=== PATIENT | male | born 1935 | race Caucasian/White ===

== ENCOUNTER 2016-10-05 14:27 | Inpatient (IN) ==
--- NOTE | 2016-10-05 14:42 | Emergency Department Note ---
Disposition Clinical Impression: Generalized weakness UTI (urinary tract infection) Qualifiers: Urinary tract infection type: site unspecified Hematuria presence: without hematuria Qualified Code(s): N39.0 - Urinary tract infection, site not specified Disposition: Admitted As Inpatient Condition: Fair Time of Disposition: 15:24 Male Urogenital HPI - General Chief complaint: ED Urogenital-Male Stated complaint: uti Time Seen by Provider: 10/05/16 14:29 Source: patient, EMS Mode of arrival: EMS Limitations: no limitations Nursing Notes Reviewed: Yes Vital Signs Reviewed: Yes - History of Present Illness HPI Narrative: Patient notes generalized weakness. He is currently taking Macrobid for a urinary tract infection. This was diagnosed on 09/23/2016. An indwelling Blevins catheter was placed 3 days ago. He denies focal symptoms.-Just states he feels generally weak. No fevers. No nausea no vomiting Onset (ago): day(s) Improves with: none Worsens with: none Reports: denies other symptoms - Related Data Home Medications Medication Instructions Recorded Confirmed Diltiazem HCl [Diltiazem 24Hr Cd] 240 mg PO DAILY 07/01/15 10/05/16 Oxybutynin [Ditropan] 5 mg PO 3-4XD 07/01/15 10/05/16 Albuterol Sulfate [Proair Hfa] 2 puff IH Q4H PRN 11/20/15 10/05/16 Atorvastatin Calcium [Lipitor] 20 mg PO HS 11/20/15 10/05/16 Tamsulosin [Flomax] 0.4 mg PO DAILY 11/20/15 10/05/16 Dabigatran [Pradaxa] 150 mg PO BID 02/20/16 10/05/16 Lisinopril [Zestril] 10 mg PO DAILY 10/05/16 10/05/16 Previous Rx's Medication Instructions Recorded Docusate [Colace] 100 mg PO BID capsule 12/10/15 MOM Conc [MILK OF MAGNESIA conc] 10 ml PO DAILY PRN #0 ud.liq 12/10/15 Ascorbic Acid [Vitamin C] 500 mg PO DAILY 365 Days 02/22/16 Cyanocobalamin (B-12) [Vitamin B12] 1,000 mcg PO DAILY 365 Days 02/22/16 Ferrous Sulfate 325 mg PO DAILY 365 Days 02/22/16 Folic Acid 1 mg PO DAILY 365 Days 02/22/16 Allergies Allergy/AdvReac Type Severity Reaction Status Date / Time Penicillins Allergy Hives Verified 12/24/15 16:23 Sulfa (Sulfonamide Allergy Hives Verified 12/24/15 16:23 Antibiotics) All systems ED: reviewed and negative except as stated. Constitutional: Reports: weakness Eyes: Reports: as per HPI ENT ED: Reports: as per HPI Cardiovascular: Reports: as per HPI Respiratory: Reports: as per HPI Gastrointestinal: Reports: as per HPI Genitourinary: Reports: as per HPI Musculoskeletal: Reports: as per HPI Integumentary: Reports: as per HPI Neurological: Reports: as per HPI Psychiatric: Reports: as per HPI Endocrine: Reports: as per HPI Hematological/Lymphatic: Reports: as per HPI Allergic/Immunologic: Reports: as per HPI Past Medical History - Past Medical History Source: patient Medical history: Reports: arthritis, atrial fibrillation, CHF, COPD, coronary artery disease, CVA, GERD, hyperlipidemia, hypertension, kidney stones, osteoporosis, renal disease, TIA, other Surgical history: Reports: orthopedic, other (b/l knee surgery), other ( prostate surgery) Psychiatric history: Reports: no psych history - Social History Smoking Status: Light tobacco smoker Smokeless Tobacco Status: No Alcohol use: Reports: rarely Drug use: Reports: none Physical Exam - General Limitations: no limitations General appearance: alert, in no apparent distress - Head Head exam: atraumatic - Eye Eye exam: Present: normal appearance - ENT ENT exam: normal exam - Neck Neck exam: Present: normal inspection - Chest Chest inspection: Present: normal inspection - Respiratory Respiratory exam: Present: normal lung sounds bilaterally - Cardiovascular Cardiovascular exam: Present: regular rate, normal rhythm, normal heart sounds - Abdominal Exam Abdominal Exam: Present: soft, Non-Tender - Male exam: Present: other (Blevins catheter in place draining cloudy urine with increased sediment) - Neurological Exam Neurological exam: Present: alert, oriented X3, CN II-XII intact - Psychiatric Psychiatric exam: Present: normal affect, normal mood - Skin Skin exam: Present: warm, dry, intact Course Course Narrative: The patient presents with generalized weakness. He is currently being treated with Macrobid for a UTI. I have reviewed the culture and sensitivity from his urinalysis dated 09/23/2016-his urine grew out Escherichia coli at that time which is sensitive to nitrofurantoin I spoke with the urology clinic and faxed me urinalysis results which were the same as above. I spoke with Dr. Camacho's office in order to determine which [facility] the patient was recently referred to - they thought it might be the [facility]. I am checking basic labs and an EKG. He will be reassessed 14:56: [facility] does not have any record of the patient recently being evaluated - Reevaluation(s) Reevaluation #1: Patient states he was too weak to go home. He requests admission. IV Zosyn ordered. The patient states he has a penicillin allergy but this was as a teenager and he broke out in a rash. He denies anaphylaxis. He states he has received penicillin derivatives to the best of his knowledge as mental without complication Reevaluation #2: Dr. Malin accepts admission. Recs replacing blevins and sending new UA specimen Reevaluation #3: Patient tolerated Zosyn infusion without complication Vital Signs Temperature 98.1 F 10/05/16 14:28 Pulse Rate 74 10/05/16 14:28 Respiratory Rate 16 10/05/16 14:28 Blood Pressure 137/101 10/05/16 14:28 O2 Sat by Pulse Oximetry 97 10/05/16 14:28 Temperature 98.1 F 10/05/16 14:28 Pulse Rate 74 10/05/16 14:28 Respiratory Rate 16 10/05/16 14:28 Blood Pressure 137/101 10/05/16 14:28 O2 Sat by Pulse Oximetry 97 10/05/16 14:28 Oxygen Delivery Oxygen Delivery Room Air Urogenital-Male - Medical Records Medical records reviewed: Yes I reviewed the patient's medical records. - Lab Data Lab results reviewed: Yes I reviewed the patient's lab results. Result diagrams: 10/05/16 14:50 10/05/16 14:50 Lab Results 10/05/16 10/05/16 10/05/16 Range/Units 14:50 14:50 14:50 WBC 7.0 (4.3-11.1) K/mcL RBC 4.47 (4.19-5.50) M/mcL Hgb 13.7 (12.9-16.9) g/dL Hct 41.0 (37.5-50.1) % MCV 91.7 (83.0-100.0) fL MCH 30.6 (28.0-33.3) pg MCHC 33.4 (31.6-35.5) g/dL RDW 13.3 (11.5-14.5) % Plt Count 175 (140-400) K/mcL MPV 10.3 (9.4-12.4) fL Immature Gran % 0.4 (0-4) % Seg Neutrophils % 73.3 % Lymphocytes % 19.0 % Monocytes % 6.6 % Eosinophils % 0.0 % Basophils % 0.7 % Neutrophils # 5.1 (1.6-8.9) K/mcL Lymphocytes # 1.3 (0.6-4.6) K/mcL Monocytes # 0.5 (0.0-1.3) K/mcL Eosinophils # 0.0 (0.0-0.6) K/mcL Basophils # 0.1 (0.0-0.2) K/mcL Sodium 138 (136-145) mEq/L Potassium 4.3 (3.5-4.5) mEq/L Chloride 101 (98-109) mEq/L Carbon Dioxide 28 (19-29) mEq/L BUN 16 (8-26) mg/dL Creatinine 0.85 (0.72-1.25) mg/dL Est GFR ( Amer) > 60 (> 60) Est GFR (Non-Af Amer) > 60 (> 60) BUN/Creatinine Ratio 19 (6-26) Glucose 95 (70-99) mg/dL Calculated Osmolality 287 (280-300) Calcium 9.1 (8.6-10.8) mg/dL Total Bilirubin 1.3 H (0.2-1.2) mg/dL AST 12 (5-34) Units/L ALT 8 (0-55) Units/L Alkaline Phosphatase 99 (38-126) Units/L Troponin I 0.00 (0-0.03) ng/mL Serum Total Protein 6.7 (6.0-8.3) g/dL Albumin 3.4 L (3.5-5.0) g/dL Globulin 3.3 (2.4-3.5) g/dL Albumin/Globulin Ratio 1.0 L (1.1-2.2) - EKG Data EKG attestation: Yes I reviewed and interpreted this EKG. EKG results narrative: afib 80 BPM QRS 96 ms, QT/QTc 383/419
[2016-10-05 15:08] LABS: Basophils # 0.1 K/mcL (0.0-0.2); Basophils % 0.7 %; Hemoglobin 13.7 g/dL (12.9-16.9); Immature Granulocytes % 0.4 % (0-4); Lymphocytes # 1.3 K/mcL (0.6-4.6); Mean Corpuscular HGB Conc 33.4 g/dL (31.6-35.5); Mean Corpuscular Hemoglobin 30.6 pg (28.0-33.3); Mean Corpuscular Volume 91.7 fL (83.0-100.0); Mean Platelet Volume 10.3 fL (9.4-12.4); Monocytes # 0.5 K/mcL (0.0-1.3); Monocytes % 6.6 %; Neutrophils # 5.1 K/mcL (1.6-8.9); Platelet Count 175 K/mcL (140-400); Red Blood Count 4.47 M/mcL (4.19-5.50); Red Cell Distribution Width 13.3 % (11.5-14.5); Segmented Neutrophils % 73.3 %
[2016-10-05] MEDS ORDERED: Piperacillin/Tazobactam 3.375 GM in D5% in Water (Mini-Bag+) 100 ML IVPB ONE (15:18)
[2016-10-05 15:20] LABS: Alanine Aminotransferase 8 Units/L (0-55); Albumin 3.4 g/dL (3.5-5.0); Alkaline Phosphatase 99 Units/L (38-126); Aspartate Amino Transferase 12 Units/L (5-34); BUN/Creatinine Ratio 19 (6-26); Bilirubin,Total 1.3 mg/dL (0.2-1.2); Blood Urea Nitrogen 16 mg/dL (8-26); Calcium 9.1 mg/dL (8.6-10.8); Carbon Dioxide 28 mEq/L (19-29); Chloride 101 mEq/L (98-109); Globulin 3.3 g/dL (2.4-3.5); Glucose 95 mg/dL (70-99); Osmolality,Calculated 287 (280-300); Potassium 4.3 mEq/L (3.5-4.5); Sodium 138 mEq/L (136-145); Total Protein 6.7 g/dL (6.0-8.3); eGFR For African Americans > 60 (> 60); eGFR For Non-African Americans > 60 (> 60)
[2016-10-05 16:56] LABS: Bilirubin,Urine Negative (Negative); Blood,Urine Moderate (Negative); Clarity,Urine Cloudy (Clear); Glucose,Urine (UA) Normal (Normal); Ketones,Urine Trace mg/dL (Negative); Leukocyte Esterase,Urine Large (Negative); Nitrite,Urine Negative (Negative); PH,Urine 6.5 pH Units (5.0-8.0); Protein,Urine 100 mg/dL (Neg-Trace); Specific Gravity,Urine 1.024 (1.010-1.025); Urobilinogen,Urine Normal (Normal)
[2016-10-05 17:01] LABS: Color,Urine Yellow (Yellow)
--- NOTE | 2016-10-05 18:42 | Internal Med History&Physical ---
Date of Encounter: 10/05/16 Time of Encounter: 18:41 Assessment and Plan (1) Acute cystitis with hematuria Current visit: Yes Status: Acute We will treat him with broad-spectrum IV antibiotics. We will obtain a urine culture. At this point there is microhematuria and no gross hematuria noted. We will monitor her hemoglobin and hematocrit concerning the patient is anticoagulated. (2) UTI due to extended-spectrum beta lactamase (ESBL) producing Escherichia coli Current visit: Yes Status: Acute Urine culture from 09/23/2016, 12 days ago showed ESBL Escherichia coli sensitive to carbapenems. I will treat the patient with meropenem and follow- up repeat urine culture and sensitivities. The patient will likely need to complete a 10 day to 14 day course of IV antibiotic. A good choice would be ertapenem since as once daily administration. (3) History of CVA with residual deficit Current visit: Yes Status: Acute Will obtain PT and OT evaluation. Assist with ADLs. Fall precautions. (4) DVT prophylaxis Current visit: Yes Status: Acute (5) Urinary retention due to benign prostatic hyperplasia Current visit: No Status: Chronic Currently the patient has a Ray catheter. We will continue this. I will increase the Flomax to twice daily. The blood pressure will likely tolerate it and as it is elevated. (6) CAD (coronary artery disease) Current visit: No Status: Chronic Not currently reporting any chest pain. Continue with Lipitor. He is not on aspirin due to for anticoagulation. Qualifiers: Coronary Disease-Associated Artery/Lesion type: elem artery [place] vs. transplanted heart: elem heart Associated angina: without angina Qualified Code(s): I25.10 - Atherosclerotic heart disease of elem coronary artery without angina pectoris (7) Atrial fibrillation Current visit: No Status: Chronic Continue anticoagulation with Pradaxa. We will monitor hemoglobin and hematocrit, monitor for bleeding given the patient's UTI. Qualifiers: Atrial fibrillation type: chronic Qualified Code(s): I48.2 - Chronic atrial fibrillation Internal Medicine - H&P: HPI Chief complaint: urinary tract infection Admitted From: Emergency Dept Plans for Post Hospital Care: Home History of present illness: Mr. 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 He had a urinalysis done 10 days ago when he was being treated by Macrobid for UTI. He reported generalized weakness, no fevers chills nausea or vomiting. However, urine culture was reported as resistant to Macrobid and therefore the patient was referred for evaluation in the hospital. He states that this morning he has started to develop mild to moderate sharp lower abdominal pain. Denies any aggravating or alleviating factors. He had a Ray catheter placed in the emergency department and he was referred for admission. A temperature view of systems was performed. Positives per history of present illness and additionally positive for left lower extremity weakness and spasticity secondary to stroke, otherwise negative. Family history was reviewed and found to be noncontributory due to the patient' s advanced age. Past Med Surg Social Fam HX - Past Medical History Medical history: arthritis, atrial fibrillation, CHF, COPD, coronary artery disease, CVA, GERD, hyperlipidemia, hypertension, kidney stones, osteoporosis, renal disease, TIA, other Psychiatric history: no psych history - Past Surgical History Surgical History: orthopedic, other, other - Social History Smoking Status: Light tobacco smoker Smokeless Tobacco Status: No Alcohol use: rarely Drug use: none - Family History Mother Living Status: Hx Family Cardiac Disorders: Yes Father Living Status: Hx Family Endocrine Disorder: Yes Internal Medicine - H&P: Meds Diltiazem HCl [Diltiazem 24Hr Cd] 240 mg PO DAILY 07/01/15 [History] Oxybutynin [Ditropan] 5 mg PO 3-4XD 07/01/15 [History] Albuterol Sulfate [Proair Hfa] 2 puff IH Q4H PRN 11/20/15 [History] Atorvastatin Calcium [Lipitor] 20 mg PO HS 11/20/15 [History] Tamsulosin [Flomax] 0.4 mg PO DAILY 11/20/15 [History] Docusate [Colace] 100 mg PO BID capsule 12/10/15 [Rx] MOM Conc [MILK OF MAGNESIA conc] 10 ml PO DAILY PRN #0 ud.liq 12/10/15 [Rx] Dabigatran [Pradaxa] 150 mg PO BID 02/20/16 [History] Ascorbic Acid [Vitamin C] 500 mg PO DAILY 365 Days 02/22/16 [Rx] Cyanocobalamin (B-12) [Vitamin B12] 1,000 mcg PO DAILY 365 Days 02/22/16 [Rx] Ferrous Sulfate 325 mg PO DAILY 365 Days 02/22/16 [Rx] Folic Acid 1 mg PO DAILY 365 Days 02/22/16 [Rx] Lisinopril [Zestril] 10 mg PO DAILY 10/05/16 [History] Allergies Penicillins Allergy (Verified 12/24/15 16:23) Hives Sulfa (Sulfonamide Antibiotics) Allergy (Verified 12/24/15 16:23) Hives All Systems PM: A 10-system review of systems was performed and is negative for pertinent findings except as documented above in the HPI. - Constitutional Vitals: Temp Pulse Resp BP Pulse Ox 97.4 F L 81 17 166/97 95 10/05/16 16:46 10/05/16 16:46 10/05/16 16:46 10/05/16 16:46 10/05/16 16:46 - Respiratory Respiratory exam: Present: CTAB. Absent: accessory muscle use, rales, rhonchi, wheezes - Cardiovascular Cardiovascular exam: Present: RRR, +S1, +S2. Absent: diastolic murmur, gallop, rubs, systolic murmur - GI/Abdominal GI/Abdominal exam: Present: normal bowel sounds, soft, no peritoneal signs. Absent: distended, tenderness - Additional comments: Normal male genitalia, uncircumcised, no lesions or discharge. Ray catheter arising from the penis draining clear yellow urine. - Skin Skin exam: Present: dry, intact Internal Med - H&P Results - Labs CBC & Chem 7: 10/05/16 14:50 10/05/16 14:50 Labs: Urine 10/05/16 Range/Units 16:32 Urine Color Yellow (Yellow) Urine Clarity Cloudy A (Clear) Urine pH 6.5 (5.0-8.0) pH Units Ur Specific [place] 1.024 (1.010-1.025) Urine Protein 100 H (Neg-Trace) mg/dL Urine Glucose (UA) Normal (Normal) mg/dL
[2016-10-05] MEDS ORDERED: MOM Conc 10 ML UD.LIQ PO PRN (20:10)
[2016-10-05] MEDS ORDERED: *HR* HYDROcodone/Acet 5/325 mg TABLET PO PRN (20:11)
[2016-10-05] MEDS ORDERED: Naloxone 0.4 MG/ML INJ IVP PRN (20:11)
[2016-10-05] MEDS: Ertapenem 1,000 MG in 0.9 % Sodium Chloride Mini Bag 100 ML IVPB SCH (21:19)
[2016-10-05] MEDS: *HR* Dabigatran 150 MG CAPSULE PO SCH (21:20)
[2016-10-06 05:28] LABS: Basophils % 0.5 %; Eosinophils % 0.2 %; Hematocrit 38.3 % (37.5-50.1); Hemoglobin 12.8 g/dL (12.9-16.9); Immature Granulocytes % 0.3 % (0-4); Lymphocytes # 1.5 K/mcL (0.6-4.6); Lymphocytes % 22.6 %; Mean Corpuscular HGB Conc 33.4 g/dL (31.6-35.5); Mean Corpuscular Hemoglobin 30.3 pg (28.0-33.3); Mean Corpuscular Volume 90.5 fL (83.0-100.0); Mean Platelet Volume 10.2 fL (9.4-12.4); Monocytes # 0.6 K/mcL (0.0-1.3); Monocytes % 8.8 %; Neutrophils # 4.5 K/mcL (1.6-8.9); Platelet Count 161 K/mcL (140-400); Red Blood Count 4.23 M/mcL (4.19-5.50); Red Cell Distribution Width 13.2 % (11.5-14.5); Segmented Neutrophils % 67.6 %
[2016-10-06 05:41] LABS: BUN/Creatinine Ratio 21 (6-26); Blood Urea Nitrogen 18 mg/dL (8-26); Calcium 8.6 mg/dL (8.6-10.8); Carbon Dioxide 26 mEq/L (19-29); Chloride 103 mEq/L (98-109); Glucose 83 mg/dL (70-99); Osmolality,Calculated 289 (280-300); Potassium 3.7 mEq/L (3.5-4.5); Sodium 139 mEq/L (136-145); eGFR For African Americans > 60 (> 60); eGFR For Non-African Americans > 60 (> 60)
[2016-10-06] MEDS: Ertapenem 1,000 MG in 0.9 % Sodium Chloride Mini Bag 100 ML IVPB SCH (09:42)
[2016-10-06] MEDS: *HR* Dabigatran 150 MG CAPSULE PO SCH ×2 (09:42→21:32)
[2016-10-06] MEDS: Diltiazem CD (24hr) 240 MG CAPSULE PO SCH (09:43)
--- NOTE | 2016-10-06 10:55 | Internal Med Progress Note ---
Date of Encounter: 10/05/16 Time of Encounter: 10:00 - Assessment and plan (1) UTI due to extended-spectrum beta lactamase (ESBL) producing Escherichia coli Current Visit: Yes Status: Acute Assessment and plan: Urine cultures from past consistent with ESBL UTI Will continue Ertapenem at this time and further adjust therapy as per culture results blevins cath changed on 10/05/16-will maintain adequate blevins care follow up repeat urine cultures (2) Urinary retention due to benign prostatic hyperplasia Current Visit: No Status: Chronic Assessment and plan: Continue Blevins support Continue Flomax BID (3) Hypertension Current Visit: No Status: Chronic Assessment and plan: BP within acceptable range continue home medications Qualifiers: Hypertension type: essential hypertension Qualified Code(s): I10 - Essential (primary) hypertension (4) COPD (chronic obstructive pulmonary disease) Current Visit: No Status: Chronic Assessment and plan: Not in acute exacerbation continue home medications bronchodilator support as needed Qualifiers: COPD type: unspecified COPD Qualified Code(s): J44.9 - Chronic obstructive pulmonary disease, unspecified (5) Atrial fibrillation Current Visit: No Status: Chronic Assessment and plan: Rate controlled with Cardizem, will continue Anticoagulated with Pradaxa Qualifiers: Atrial fibrillation type: chronic Qualified Code(s): I48.2 - Chronic atrial fibrillation (6) History of CVA with residual deficit Current Visit: Yes Status: Acute Assessment and plan: Follow up PT/OT eval (7) Obesity (BMI 30.0-34.9) Current Visit: No Status: Chronic (8) DVT prophylaxis Current Visit: Yes Status: Acute Assessment and plan: Anticoagulated with Pradaxa - Subjective Interval history: Patient seen and examined, resting in chair and reports of feeling better compared to the previous day. States his blevins catheter was changed yesterday after his arrival to the hospital. - Constitutional Vitals: Temp Pulse Resp BP Pulse Ox 97.6 F 77 16 104/71 96 10/06/16 10:36 10/06/16 10:36 10/06/16 10:36 10/06/16 10:36 10/06/16 10:36 General appearance: Present: A&O X 3, no acute distress, obese - Head Head exam: Present: atraumatic, normocephalic - Eye Eye exam: Present: normal appearance, conjuntiva pink, sclera anicteric - Respiratory Respiratory exam: Present: CTAB. Absent: accessory muscle use, rales, rhonchi, wheezes - Cardiovascular Cardiovascular exam: Present: RRR, +S1, +S2. Absent: diastolic murmur, gallop, rubs, systolic murmur - GI/Abdominal GI/Abdominal exam: Present: distended (obese), normal bowel sounds, soft, no peritoneal signs. Absent: tenderness - Extremities Exam Extremities exam: Present: warm, radial pulses palpable and symetrical. Absent : calf tenderness, pedal edema - Neurological Exam Neurological exam: Present: alert, oriented X3 - Psychiatric Psychiatric exam: Present: normal affect, normal mood Internal Medicine: Result - Labs CBC & Chem 7: 10/06/16 04:55 10/06/16 04:55 Labs: Short CBC 10/06/16 Range/Units 04:55 WBC 6.6 (4.3-11.1) K/mcL Hgb 12.8 L (12.9-16.9) g/dL Hct 38.3 (37.5-50.1) % Plt Count 161 (140-400) K/mcL Neutrophils # 4.5 (1.6-8.9) K/mcL BMP 10/06/16 04:55 Sodium 139 Potassium 3.7 Chloride 103 Carbon Dioxide 26 BUN 18 Creatinine 0.84 Glucose 83 Calcium 8.6 Urine 10/05/16 Range/Units 16:32 Urine Color Yellow (Yellow) Urine Clarity Cloudy A (Clear) Urine pH 6.5 (5.0-8.0) pH Units Ur Specific [place] 1.024 (1.010-1.025) Urine Protein 100 H (Neg-Trace) mg/dL Urine Glucose (UA) Normal (Normal) mg/dL Consult Discharge Plan - Plan Referrals: Luz Camacho MD [Primary Care Provider] -
--- NOTE | 2016-10-06 16:48 | Electrocardiograph Report ---
[place] [id number] Test Date: 2016-10-05 Pat Name: Aaron Hawkins Department: 104 Room: 3B Gender: M Backfiller: PAOLA : 1935 Requested By: Soy Silver Order Number: [id number] Reading MD: Kalen Rahman MD Measurements Intervals [place] Rate: 80 P: DE: 0 QRS: -6 QRSD: 96 T: 62 QT: 383 QTc: 419 Interpretive Statements ATRIAL FIBRILLATION WITH ABERRANT CONDUCTION OR VENTRICULAR PREMATURE COMPLEXES Electronically Signed On 10-06-2016 16:46:39 EDT by Kalen Rahman MD
[2016-10-07 06:04] LABS: Basophils % 0.3 %; Hematocrit 35.5 % (37.5-50.1); Immature Granulocytes % 0.3 % (0-4); Lymphocytes # 2.1 K/mcL (0.6-4.6); Mean Corpuscular HGB Conc 33.8 g/dL (31.6-35.5); Mean Corpuscular Hemoglobin 30.8 pg (28.0-33.3); Mean Corpuscular Volume 91.3 fL (83.0-100.0); Mean Platelet Volume 10.7 fL (9.4-12.4); Monocytes # 0.5 K/mcL (0.0-1.3); Monocytes % 6.8 %; Neutrophils # 4.5 K/mcL (1.6-8.9); Platelet Count 146 K/mcL (140-400); Red Blood Count 3.89 M/mcL (4.19-5.50); Red Cell Distribution Width 13.4 % (11.5-14.5); Segmented Neutrophils % 63.6 %
[2016-10-07 06:15] LABS: BUN/Creatinine Ratio 23 (6-26); Blood Urea Nitrogen 22 mg/dL (8-26); Calcium 8.1 mg/dL (8.6-10.8); Carbon Dioxide 26 mEq/L (19-29); Chloride 105 mEq/L (98-109); Glucose 102 mg/dL (70-99); Osmolality,Calculated 288 (280-300); Phosphorous 3.9 mg/dL (2.3-4.7); Potassium 3.5 mEq/L (3.5-4.5); Sodium 137 mEq/L (136-145); eGFR For African Americans > 60 (> 60); eGFR For Non-African Americans > 60 (> 60)
[2016-10-07] MEDS: Ertapenem 1,000 MG in 0.9 % Sodium Chloride Mini Bag 100 ML IVPB SCH (09:13)
[2016-10-07] MEDS: *HR* Dabigatran 150 MG CAPSULE PO SCH ×2 (09:13→21:51)
[2016-10-07] MEDS: Diltiazem CD (24hr) 240 MG CAPSULE PO SCH (09:13)
--- NOTE | 2016-10-07 12:00 | Internal Med Progress Note ---
Date of Encounter: 10/05/16 Time of Encounter: 11:05 - Assessment and plan (1) UTI due to extended-spectrum beta lactamase (ESBL) producing Escherichia coli Current Visit: Yes Status: Acute Assessment and plan: Urine cultures from past consistent with ESBL UTI Will continue Ertapenem at this time and further adjust therapy as per culture results blevins cath changed on 10/05/16-will maintain adequate blevins care follow up repeat urine cultures f/u PT evaluation (2) Urinary retention due to benign prostatic hyperplasia Current Visit: No Status: Chronic Assessment and plan: Continue Blevins support Continue Flomax BID (3) Hypertension Current Visit: No Status: Chronic Assessment and plan: Noted to be hypotensive Will hold Lisinopril at this time continue to monitor BP closely Qualifiers: Hypertension type: essential hypertension Qualified Code(s): I10 - Essential (primary) hypertension (4) COPD (chronic obstructive pulmonary disease) Current Visit: No Status: Chronic Assessment and plan: Not in acute exacerbation continue home medications bronchodilator support as needed Qualifiers: COPD type: unspecified COPD Qualified Code(s): J44.9 - Chronic obstructive pulmonary disease, unspecified (5) Atrial fibrillation Current Visit: No Status: Chronic Assessment and plan: Rate controlled with Cardizem, will continue Anticoagulated with Pradaxa Qualifiers: Atrial fibrillation type: chronic Qualified Code(s): I48.2 - Chronic atrial fibrillation (6) History of CVA with residual deficit Current Visit: Yes Status: Acute Assessment and plan: Follow up PT/OT eval (7) Obesity (BMI 30.0-34.9) Current Visit: No Status: Chronic (8) DVT prophylaxis Current Visit: Yes Status: Acute Assessment and plan: Anticoagulated with Pradaxa - Subjective Interval history: Patient seen and examined. Resting in bed and reports of feeling weak but better compared to previous day. Noted to be hypotensive but asymptomatic. Denies any headache, lightheadedness, dizziness, sob at this time. No overnight events reported. - Constitutional Vitals: Temp Pulse Resp BP Pulse Ox 97.5 F L 67 16 94/58 94 L 10/07/16 07:39 10/07/16 07:39 10/07/16 07:39 10/07/16 07:39 10/07/16 07:39 General appearance: Present: A&O X 3, no acute distress, obese - Head Head exam: Present: atraumatic, normocephalic - Eye Eye exam: Present: normal appearance, conjuntiva pink, sclera anicteric - Respiratory Respiratory exam: Present: CTAB. Absent: accessory muscle use, rales, rhonchi, wheezes - Cardiovascular Cardiovascular exam: Present: RRR, +S1, +S2. Absent: diastolic murmur, gallop, rubs, systolic murmur - GI/Abdominal GI/Abdominal exam: Present: normal bowel sounds, soft, no peritoneal signs. Absent: distended, tenderness - Extremities Exam Extremities exam: Present: warm, radial pulses palpable and symetrical. Absent : calf tenderness, cyanotic, pedal edema - Neurological Exam Neurological exam: Present: alert, oriented X3 - Psychiatric Psychiatric exam: Present: normal affect, normal mood Internal Medicine: Result - Labs CBC & Chem 7: 10/07/16 05:00 10/07/16 05:00 Labs: Short CBC 10/07/16 Range/Units 05:00 WBC 7.1 (4.3-11.1) K/mcL Hgb 12.0 L (12.9-16.9) g/dL Hct 35.5 L (37.5-50.1) % Plt Count 146 (140-400) K/mcL Neutrophils # 4.5 (1.6-8.9) K/mcL BMP 10/07/16 05:00 Sodium 137 Potassium 3.5 Chloride 105 Carbon Dioxide 26 BUN 22 Creatinine 0.94 Glucose 102 H Calcium 8.1 L - VTE Documentation of Mechanical Device: Graduated compression elastic hosiery Consult Discharge Plan - Plan Referrals: Luz Camacho MD [Primary Care Provider] -
[2016-10-07 15:51] LABS: Hemoglobin A1C 4.9 %
[2016-10-08 04:21] LABS: Basophils % 0.5 %; Hematocrit 34.6 % (37.5-50.1); Hemoglobin 11.5 g/dL (12.9-16.9); Immature Granulocytes % 0.3 % (0-4); Lymphocytes # 2.3 K/mcL (0.6-4.6); Lymphocytes % 29.2 %; Mean Corpuscular HGB Conc 33.2 g/dL (31.6-35.5); Mean Corpuscular Hemoglobin 30.4 pg (28.0-33.3); Mean Corpuscular Volume 91.5 fL (83.0-100.0); Mean Platelet Volume 10.5 fL (9.4-12.4); Monocytes # 0.5 K/mcL (0.0-1.3); Monocytes % 6.8 %; Platelet Count 150 K/mcL (140-400); Red Blood Count 3.78 M/mcL (4.19-5.50); Red Cell Distribution Width 13.5 % (11.5-14.5); Segmented Neutrophils % 63.2 %
[2016-10-08 04:42] LABS: BUN/Creatinine Ratio 25 (6-26); Blood Urea Nitrogen 22 mg/dL (8-26); Calcium 8.2 mg/dL (8.6-10.8); Carbon Dioxide 24 mEq/L (19-29); Chloride 106 mEq/L (98-109); Glucose 99 mg/dL (70-99); Magnesium 1.9 mg/dL (1.6-2.6); Osmolality,Calculated 289 (280-300); Phosphorous 3.6 mg/dL (2.3-4.7); Potassium 4.2 mEq/L (3.5-4.5); Sodium 138 mEq/L (136-145); eGFR For African Americans > 60 (> 60); eGFR For Non-African Americans > 60 (> 60)
[2016-10-08] MEDS: Diltiazem CD (24hr) 240 MG CAPSULE PO SCH (09:46)
[2016-10-08] MEDS: Ertapenem 1,000 MG in 0.9 % Sodium Chloride Mini Bag 100 ML IVPB SCH (09:46)
[2016-10-08] MEDS: *HR* Dabigatran 150 MG CAPSULE PO SCH ×2 (09:46→21:19)
--- NOTE | 2016-10-08 12:09 | Internal Med Progress Note ---
Date of Encounter: 10/08/16 Time of Encounter: 12:06 - Assessment and plan (1) UTI due to extended-spectrum beta lactamase (ESBL) producing Escherichia coli Current Visit: Yes Status: Acute Assessment and plan: Urine cultures from past consistent with ESBL UTI Will continue Ertapenem for a total of 5 days. blevins cath changed on 10/05/16-will maintain adequate blevins care Repeat Urine cultures noted: No pathogens isolated PT eval recommended ECF placement D/C pending ECF placement (2) Urinary retention due to benign prostatic hyperplasia Current Visit: No Status: Chronic Assessment and plan: Continue Blevins support Continue Flomax BID (3) Hypertension Current Visit: No Status: Chronic Assessment and plan: Noted to be hypotensive Will continue to hold Lisinopril at this time continue to monitor BP closely Qualifiers: Hypertension type: essential hypertension Qualified Code(s): I10 - Essential (primary) hypertension (4) COPD (chronic obstructive pulmonary disease) Current Visit: No Status: Chronic Assessment and plan: Not in acute exacerbation continue home medications bronchodilator support as needed Qualifiers: COPD type: unspecified COPD Qualified Code(s): J44.9 - Chronic obstructive pulmonary disease, unspecified (5) Atrial fibrillation Current Visit: No Status: Chronic Assessment and plan: Rate controlled with Cardizem, will continue Anticoagulated with Pradaxa Qualifiers: Atrial fibrillation type: chronic Qualified Code(s): I48.2 - Chronic atrial fibrillation (6) History of CVA with residual deficit Current Visit: Yes Status: Acute Assessment and plan: ECF recommended by PT (7) Obesity (BMI 30.0-34.9) Current Visit: No Status: Chronic (8) DVT prophylaxis Current Visit: Yes Status: Acute Assessment and plan: Anticoagulated with Pradaxa - Subjective Interval history: Patient seen and examined. Resting in bed and reports of feeling weak but better compared to previous day. Noted to be hypotensive but asymptomatic. Denies any headache, lightheadedness, dizziness, sob at this time. No overnight events reported. Patient encourage to get out of bed to chair. Discharge pending ECF placement - Constitutional Vitals: Temp Pulse Resp BP Pulse Ox 97.9 F 88 16 92/59 96 10/08/16 11:57 10/08/16 11:57 10/08/16 11:57 10/08/16 11:57 10/08/16 11:57 General appearance: Present: A&O X 3, no acute distress, obese - Head Head exam: Present: atraumatic, normocephalic - Eye Eye exam: Present: normal appearance, conjuntiva pink, sclera anicteric - Respiratory Respiratory exam: Present: CTAB. Absent: accessory muscle use, rales, rhonchi, wheezes - Cardiovascular Cardiovascular exam: Present: RRR, +S1, +S2. Absent: diastolic murmur, gallop, rubs, systolic murmur - GI/Abdominal GI/Abdominal exam: Present: normal bowel sounds, soft, no peritoneal signs. Absent: distended, tenderness - Extremities Exam Extremities exam: Present: warm, radial pulses palpable and symetrical. Absent : calf tenderness, cyanotic, pedal edema - Neurological Exam Neurological exam: Present: alert - Psychiatric Psychiatric exam: Present: normal affect, normal mood Internal Medicine: Result - Labs CBC & Chem 7: 10/08/16 03:55 10/08/16 03:55 Labs: Short CBC 10/08/16 Range/Units 03:55 WBC 7.8 (4.3-11.1) K/mcL Hgb 11.5 L (12.9-16.9) g/dL Hct 34.6 L (37.5-50.1) % Plt Count 150 (140-400) K/mcL Neutrophils # 5.0 (1.6-8.9) K/mcL BMP 10/08/16 03:55 Sodium 138 Potassium 4.2 Chloride 106 Carbon Dioxide 24 BUN 22 Creatinine 0.87 Glucose 99 Calcium 8.2 L - VTE Documentation of Mechanical Device: Graduated compression elastic hosiery Consult Discharge Plan - Plan Referrals: Luz Camacho MD [Primary Care Provider] -
[2016-10-08] MEDS ORDERED: 0.9 % Sodium Chloride 250 ML ONE (16:00)
[2016-10-08] MEDS ORDERED: 0.9 % Sodium Chloride 250 ML IVC ONE (16:04)
[2016-10-09 04:25] LABS: Basophils % 0.4 %; Eosinophils % 0.1 %; Hematocrit 34.8 % (37.5-50.1); Hemoglobin 11.5 g/dL (12.9-16.9); Immature Granulocytes % 0.5 % (0-4); Lymphocytes # 2.1 K/mcL (0.6-4.6); Lymphocytes % 27.3 %; Mean Corpuscular Hemoglobin 30.5 pg (28.0-33.3); Mean Corpuscular Volume 92.3 fL (83.0-100.0); Mean Platelet Volume 11.2 fL (9.4-12.4); Monocytes # 0.5 K/mcL (0.0-1.3); Monocytes % 6.2 %; Neutrophils # 5.1 K/mcL (1.6-8.9); Platelet Count 137 K/mcL (140-400); Red Blood Count 3.77 M/mcL (4.19-5.50); Red Cell Distribution Width 14.5 % (11.5-14.5); Segmented Neutrophils % 65.5 %
[2016-10-09 06:12] LABS: BUN/Creatinine Ratio 25 (6-26); Blood Urea Nitrogen 22 mg/dL (8-26); Calcium 8.2 mg/dL (8.6-10.8); Carbon Dioxide 25 mEq/L (19-29); Chloride 105 mEq/L (98-109); Glucose 91 mg/dL (70-99); Magnesium 1.9 mg/dL (1.6-2.6); Osmolality,Calculated 285 (280-300); Phosphorous 3.5 mg/dL (2.3-4.7); Potassium 3.9 mEq/L (3.5-4.5); Sodium 136 mEq/L (136-145); eGFR For African Americans > 60 (> 60); eGFR For Non-African Americans > 60 (> 60)
[2016-10-09] MEDS: Diltiazem CD (24hr) 240 MG CAPSULE PO SCH (08:16)
[2016-10-09] MEDS: Ertapenem 1,000 MG in 0.9 % Sodium Chloride Mini Bag 100 ML IVPB SCH (08:16)
[2016-10-09] MEDS: *HR* Dabigatran 150 MG CAPSULE PO SCH ×2 (08:16→20:52)
--- NOTE | 2016-10-09 11:46 | Internal Med Progress Note ---
Date of Encounter: 10/09/16 Time of Encounter: 11:58 - Assessment and plan (1) UTI due to extended-spectrum beta lactamase (ESBL) producing Escherichia coli Current Visit: Yes Status: Acute Assessment and plan: Urine cultures from past consistent with ESBL UTI Will continue Ertapenem for a total of 5 days. blevins cath changed on 10/05/16-will maintain adequate blevins care Repeat Urine cultures noted: No pathogens isolated PT eval recommended ECF placement D/C pending ECF placement (2) Urinary retention due to benign prostatic hyperplasia Current Visit: No Status: Chronic Assessment and plan: Continue Blevins support Changed to Flomax qHS given BP readings (3) Hypertension Current Visit: No Status: Chronic Assessment and plan: Noted to be hypotensive Will continue to hold Lisinopril and changed Flomax to once a day (qHS) continue to monitor BP closely BP within acceptable range at this time. Qualifiers: Hypertension type: essential hypertension Qualified Code(s): I10 - Essential (primary) hypertension (4) COPD (chronic obstructive pulmonary disease) Current Visit: No Status: Chronic Assessment and plan: Not in acute exacerbation continue home medications bronchodilator support as needed Qualifiers: COPD type: unspecified COPD Qualified Code(s): J44.9 - Chronic obstructive pulmonary disease, unspecified (5) Atrial fibrillation Current Visit: No Status: Chronic Assessment and plan: Rate controlled with Cardizem, will continue Anticoagulated with Pradaxa Qualifiers: Atrial fibrillation type: chronic Qualified Code(s): I48.2 - Chronic atrial fibrillation (6) History of CVA with residual deficit Current Visit: Yes Status: Acute Assessment and plan: ECF recommended by PT (7) Obesity (BMI 30.0-34.9) Current Visit: No Status: Chronic (8) DVT prophylaxis Current Visit: Yes Status: Acute Assessment and plan: Anticoagulated with Pradaxa - Subjective Interval history: Patient seen and examined. Resting in bed and denies any distress at this time. Noted to be hypotensive yesterday evening requiring a 250cc NS bolus. Patient's evening dose of Flomax was placed on hold. Repeat BP readings since then have been within acceptable range. Discharge pending ECF placement - Constitutional Vitals: Temp Pulse Resp BP Pulse Ox 97.2 F L 54 18 122/78 97 10/09/16 10:57 10/09/16 10:57 10/09/16 10:57 10/09/16 10:57 10/09/16 10:57 General appearance: Present: A&O X 3, no acute distress, obese - Head Head exam: Present: atraumatic, normocephalic - Eye Eye exam: Present: normal appearance, conjuntiva pink, sclera anicteric - Respiratory Respiratory exam: Present: CTAB. Absent: accessory muscle use, rales, rhonchi, wheezes - Cardiovascular Cardiovascular exam: Present: RRR, +S1, +S2. Absent: diastolic murmur, gallop, rubs, systolic murmur - GI/Abdominal GI/Abdominal exam: Present: normal bowel sounds, soft, no peritoneal signs. Absent: distended, tenderness - Extremities Exam Extremities exam: Present: warm, radial pulses palpable and symetrical. Absent : calf tenderness, cyanotic, pedal edema - Neurological Exam Neurological exam: Present: alert, oriented X3 - Psychiatric Psychiatric exam: Present: normal affect, normal mood Internal Medicine: Result - Labs CBC & Chem 7: 10/09/16 04:20 10/09/16 05:38 Labs: Short CBC 10/09/16 Range/Units 04:20 WBC 7.8 (4.3-11.1) K/mcL Hgb 11.5 L (12.9-16.9) g/dL Hct 34.8 L (37.5-50.1) % Plt Count 137 L (140-400) K/mcL Neutrophils # 5.1 (1.6-8.9) K/mcL BMP 10/09/16 05:38 Sodium 136 Potassium 3.9 Chloride 105 Carbon Dioxide 25 BUN 22 Creatinine 0.87 Glucose 91 Calcium 8.2 L - VTE Documentation of Mechanical Device: Graduated compression elastic hosiery Consult Discharge Plan - Plan Referrals: Luz Camacho MD [Primary Care Provider] -
[2016-10-10 05:43] LABS: Basophils % 0.4 %; Hematocrit 34.9 % (37.5-50.1); Hemoglobin 11.5 g/dL (12.9-16.9); Immature Granulocytes % 0.5 % (0-4); Lymphocytes # 2.1 K/mcL (0.6-4.6); Lymphocytes % 28.2 %; Mean Corpuscular Hemoglobin 30.2 pg (28.0-33.3); Mean Corpuscular Volume 91.6 fL (83.0-100.0); Mean Platelet Volume 10.3 fL (9.4-12.4); Monocytes # 0.5 K/mcL (0.0-1.3); Monocytes % 6.5 %; Neutrophils # 4.9 K/mcL (1.6-8.9); Platelet Count 159 K/mcL (140-400); Red Blood Count 3.81 M/mcL (4.19-5.50); Red Cell Distribution Width 13.4 % (11.5-14.5); Segmented Neutrophils % 64.4 %
[2016-10-10 05:56] LABS: BUN/Creatinine Ratio 27 (6-26); Blood Urea Nitrogen 23 mg/dL (8-26); Carbon Dioxide 23 mEq/L (19-29); Chloride 108 mEq/L (98-109); Glucose 94 mg/dL (70-99); Magnesium 1.8 mg/dL (1.6-2.6); Osmolality,Calculated 287 (280-300); Phosphorous 3.3 mg/dL (2.3-4.7); Potassium 4.1 mEq/L (3.5-4.5); Sodium 137 mEq/L (136-145); eGFR For African Americans > 60 (> 60); eGFR For Non-African Americans > 60 (> 60)
[2016-10-10] MEDS: Ertapenem 1,000 MG in 0.9 % Sodium Chloride Mini Bag 100 ML IVPB SCH (08:33)
[2016-10-10] MEDS: *HR* Dabigatran 150 MG CAPSULE PO SCH (08:34)
[2016-10-10] MEDS: Diltiazem CD (24hr) 240 MG CAPSULE PO SCH (08:34)
--- NOTE | 2016-10-10 13:26 | Discharge Summary ---
Date of Encounter: 10/10/16 Time of Encounter: 13:22 - Discharge Diagnosis (1) UTI due to extended-spectrum beta lactamase (ESBL) producing Escherichia coli Priority: Primary Status: Acute (2) Urinary retention due to benign prostatic hyperplasia Priority: Primary Status: Chronic (3) Hypertension Priority: Secondary Status: Chronic Qualifiers: Hypertension type: essential hypertension Qualified Code(s): I10 - Essential (primary) hypertension (4) COPD (chronic obstructive pulmonary disease) Priority: Secondary Status: Chronic Qualifiers: COPD type: unspecified COPD Qualified Code(s): J44.9 - Chronic obstructive pulmonary disease, unspecified (5) Atrial fibrillation Priority: Secondary Status: Chronic Qualifiers: Atrial fibrillation type: chronic Qualified Code(s): I48.2 - Chronic atrial fibrillation (6) History of CVA with residual deficit Priority: Secondary Status: Chronic (7) Obesity (BMI 30.0-34.9) Priority: Secondary Status: Chronic (8) DVT prophylaxis Priority: Secondary Status: Acute - Discharge Medications Home Medications: Diltiazem HCl [Diltiazem 24Hr Cd] 240 mg PO DAILY 07/01/15 [History] Oxybutynin [Ditropan] 5 mg PO 3-4XD 07/01/15 [History] Albuterol Sulfate [Proair Hfa] 2 puff IH Q4H PRN 11/20/15 [History] Atorvastatin Calcium [Lipitor] 20 mg PO HS 11/20/15 [History] Tamsulosin [Flomax] 0.4 mg PO DAILY 11/20/15 [History] Docusate [Colace] 100 mg PO BID capsule 12/10/15 [Rx] MOM Conc [MILK OF MAGNESIA conc] 10 ml PO DAILY PRN #0 ud.liq 12/10/15 [Rx] Dabigatran [Pradaxa] 150 mg PO BID 02/20/16 [History] Ascorbic Acid [Vitamin C] 500 mg PO DAILY 365 Days 02/22/16 [Rx] Cyanocobalamin (B-12) [Vitamin B12] 1,000 mcg PO DAILY 365 Days 02/22/16 [Rx] Ferrous Sulfate 325 mg PO DAILY 365 Days 02/22/16 [Rx] Folic Acid 1 mg PO DAILY 365 Days 02/22/16 [Rx] Allergies/Adverse Reactions: Allergies Penicillins Allergy (Verified 12/24/15 16:23) Hives Sulfa (Sulfonamide Antibiotics) Allergy (Verified 12/24/15 16:23) Hives Date of admission: 10/06/16 11:03 Primary care physician: Luz Camacho, Discharging clinician: Emily Galloway Anticipated date of discharge: 10/10/16 - Patient Status Disposition: Transfer SNF Condition: Fair Functional capacity at discharge: uses cane/walker Overall status at discharge: patient is back to baseline - Discharge Instructions Follow Up With: Luz Camacho MD [Primary Care Provider] - Additional Instructions: Please follow up with your primary care physician within one week after your discharge from the hospital. You were noted to have low blood pressure readings while you were hospitalized due to which your home dose of Lisinopril has been discontinued. Please continue to hold this medication and closely monitor your blood pressure. If you are noted to have BP greater than 150/90, please restart this medication at at lower dose and please inform your primary care physician about this change. Please maintain appropriate blevins care. Ask your primary care physician about how frequently you need to get your blevins catheter changed. Please resume all your other home medications as prescribed by your primary care physician. - Diet and Activity Activity: as per physical therapy Diet: low salt diet Hospital course: Mr. Hawkins is a 81 year old male with PMH of CVA, COPD, CHF, urinary retention requiring bladder catheterization, recurrent UTI who was admitted for CAUTI. His blevins catheter was changed upon admission and he was empirically started on IV abx as per his prior urine culture sensitivities. He was further evaluated by physical therapy and ECF placement was recommended. Patient's home dose of Flomax was initially increased to BID given his severe urinary retention however his BP was unable to tolerate this change due to which it was changed back to Flomax once daily. His home dose of Lisinopril was also placed on hold due to his low BP readings during this hospitalization. At this time, patient is hemodynamically stable and will be discharged to ECF. He is to follow up with PCP after discharge. - Time Spent with Patient Total time spent providing and/or coordinating discharge services: Less than 30 minutes - Constitutional Vitals: Temp Pulse Resp BP Pulse Ox 97.8 F 50 16 101/56 95 10/10/16 11:36 10/10/16 11:36 10/10/16 11:36 10/10/16 11:36 10/10/16 11:36 General appearance: Present: A&O X 3, no acute distress, obese - Head Head exam: Present: atraumatic, normocephalic - Eye Eye exam: Present: conjuntiva pink, sclera anicteric - Respiratory Respiratory exam: Present: CTAB. Absent: accessory muscle use, rales, rhonchi, wheezes - Cardiovascular Cardiovascular exam: Present: RRR, +S1, +S2. Absent: diastolic murmur, gallop, rubs, systolic murmur - GI/Abdominal GI/Abdominal exam: Present: normal bowel sounds, soft, no peritoneal signs. Absent: distended, tenderness - Extremities Exam Extremities exam: Present: warm, radial pulses palpable and symetrical. Absent : calf tenderness, cyanotic, pedal edema - Neurological Exam Neurological exam: Present: alert, oriented X3 - VTE Documentation of Mechanical Device: Graduated compression elastic hosiery
--- NOTE | 2016-10-10 13:33 | Physician Discharge Referral ---
[facility] Referral Info Transfer To: ECF Provider in Charge after Transfer: PCP - Diagnosis (1) UTI due to extended-spectrum beta lactamase (ESBL) producing Escherichia coli Priority: Primary Status: Acute (2) Urinary retention due to benign prostatic hyperplasia Priority: Primary Status: Chronic (3) Hypertension Priority: Secondary Status: Chronic (4) COPD (chronic obstructive pulmonary disease) Priority: Secondary Status: Chronic (5) Atrial fibrillation Status: Chronic (6) History of CVA with residual deficit Priority: Secondary Status: Chronic (7) Obesity (BMI 30.0-34.9) Priority: Secondary Status: Chronic (8) DVT prophylaxis Priority: Secondary Status: Acute - Transfer Medications Home Medications: Diltiazem HCl [Diltiazem 24Hr Cd] 240 mg PO DAILY 07/01/15 [History] Oxybutynin [Ditropan] 5 mg PO 3-4XD 07/01/15 [History] Albuterol Sulfate [Proair Hfa] 2 puff IH Q4H PRN 11/20/15 [History] Atorvastatin Calcium [Lipitor] 20 mg PO HS 11/20/15 [History] Tamsulosin [Flomax] 0.4 mg PO DAILY 11/20/15 [History] Docusate [Colace] 100 mg PO BID capsule 12/10/15 [Rx] MOM Conc [MILK OF MAGNESIA conc] 10 ml PO DAILY PRN #0 ud.liq 12/10/15 [Rx] Dabigatran [Pradaxa] 150 mg PO BID 02/20/16 [History] Ascorbic Acid [Vitamin C] 500 mg PO DAILY 365 Days 02/22/16 [Rx] Cyanocobalamin (B-12) [Vitamin B12] 1,000 mcg PO DAILY 365 Days 02/22/16 [Rx] Ferrous Sulfate 325 mg PO DAILY 365 Days 02/22/16 [Rx] Folic Acid 1 mg PO DAILY 365 Days 02/22/16 [Rx] Allergies/Adverse Reactions: Allergies Penicillins Allergy (Verified 12/24/15 16:23) Hives Sulfa (Sulfonamide Antibiotics) Allergy (Verified 12/24/15 16:23) Hives - Respiratory Orders Smoking Cessation: Smoking cessation has been advised. For more information, call the [place] Tobacco Quit Line at 3-400-HIEL-NOW. - Treatments List/Other: Please follow up with your primary care physician within one week after your discharge from the hospital. You were noted to have low blood pressure readings while you were hospitalized due to which your home dose of Lisinopril has been discontinued. Please continue to hold this medication and closely monitor your blood pressure. If you are noted to have BP greater than 150/90, please restart this medication at at lower dose and please inform your primary care physician about this change. Please maintain appropriate blevins care. Ask your primary care physician about how frequently you need to get your blevins catheter changed. Please resume all your other home medications as prescribed by your primary care physician. CERTIFICATION: I certify that the transfer of the above named patient to an Extended Care Facility is necessary for the continuing treatment of the diagnosis listed. The above information is true and accurate reflection of patient's current condition. Confidential - Redisclosure prohibited without a patient's written consent.
[2016-10-10 15:38] VITALS: BP 99/63
== END 2016-10-10 16:40 | DRG 699 ==
LOC: 3BNU 14:27 → EMEROO 14:27 → 3BNU 16:31 → SUATTDRO 10-06 11:03
PROVIDERS: ADMIT Internal Medicine; ATTEND Internal Medicine

== ENCOUNTER 2017-01-23 08:37 | Inpatient (IN) ==
[2017-01-23] MEDS ORDERED: *HR* Morphine 2 MG/ML SYRINGE IVP ONE ×2 (08:49→12:55)
[2017-01-23] MEDS ORDERED: Ondansetron 4 MG/2 ML VIAL IVP ONE (08:50)
--- NOTE | 2017-01-23 08:51 | Emergency Department Note ---
Disposition Clinical Impression: Intractable pain Multiple fractures of ribs, left side, initial encounter for closed fracture Qualifiers: Encounter type: initial encounter Qualified Code(s): S22.42XA - Multiple fractures of ribs, left side, initial encounter for closed fracture Disposition: Admitted As Inpatient Condition: Fair Referrals: Luz Camacho MD [Primary Care Provider] - Forms: ED Satisfaction Letter Time of Disposition: 13:04 General Adult HPI - General Chief complaint: ED Shortness of Breath/Dyspnea Stated complaint: JORGE, vomiting Time Seen by Provider: 01/23/17 08:43 Source: patient, EMS Mode of arrival: EMS Limitations: no limitations Nursing Notes Reviewed: Yes Vital Signs Reviewed: Yes - History of Present Illness HPI Narrative: Patient is a 81-year-old male who currently lives at home, history of CVA with residual right facial droop, hypertension, diabetes. He presents today due to fall days ago, left-sided rib and chest pain, coffee-ground emesis. He states that he had a mechanical fall, slipped out of his wheelchair and landed on his left flank. He denies hitting his head, any neck pain, any numbness, tingling, weakness. Denies hip pain. Admits to left-sided rib pain, pain with deep inspiration. He denies any chest pain, current nausea, abdominal pain, diarrhea , constipation, blood in stool. He did have one episode of vomiting this morning he said was dark, and EMS witnessed this and said that it was coffee- ground in nature. - Related Data Allergies Allergy/AdvReac Type Severity Reaction Status Date / Time Penicillins Allergy Hives Verified 01/23/17 08:52 Sulfa (Sulfonamide Allergy Hives Verified 01/23/17 08:52 Antibiotics) All systems ED: reviewed and negative except as stated. Constitutional: Denies: fever Cardiovascular: Reports: chest pain Respiratory: Denies: dyspnea Gastrointestinal: Reports: vomiting. Denies: abdominal pain, nausea, diarrhea, constipation, hematemesis, melena, hematochezia Musculoskeletal: Denies: back pain, neck pain Neurological: Denies: headache, weakness, numbness, paresthesias Past Medical History - Past Medical History Attestation: Yes The following information was validated with the patient. Source: patient Medical history: Reports: CVA, diabetes, hypertension Physical Exam - General Limitations: no limitations General appearance: alert, in no apparent distress - Head Head exam: atraumatic, normocephalic, normal inspection - Eye Eye exam: Present: PERRL, EOMI, other (Right-sided facial droop - chronic for patient from previous CVA) - ENT ENT exam: normal exam, normal oropharynx, mucous membranes moist - Neck Neck exam: Present: normal inspection, full ROM, trachea midline - Chest Chest inspection: Present: normal inspection, symmetric chest wall rise, tenderness (left ribs 3-5 lateral and anterior) - Respiratory Respiratory exam: Present: normal lung sounds bilaterally - Cardiovascular Cardiovascular exam: Present: regular rate, normal rhythm, normal heart sounds - Abdominal Exam Abdominal exam: Present: soft, Non-Tender. Absent: tenderness, distention, guarding, rebound, rigidity - Extremities Exam Extremities exam: Present: normal inspection, full ROM, other (scar on left knee ). Absent: tenderness - Neurological Exam Neurological exam: Present: alert, oriented X3, CN II-XII intact. Absent: motor sensory deficit - Psychiatric Psychiatric exam: Present: normal affect, normal mood - Skin Skin exam: Present: warm, dry, intact, normal color Course Course Narrative: Mild HTN. otherwise, the rest of the vitals within ad tenderness to anterior and ribs 3 through 5 on the left. patient also had coffee-ground emesis. Will obtain CT of the head, CT cervical spine, CT chest to assess for rib fx or any or other injury,CT abdomen and pelvis with IV contrast due to coffee ground emesis. We will also check basic labs. Patient will be given morphine for pain control and zofran for nausea. 12:55 No major abnormalities in CBC or BMP. Troponin negative. EKG showed no acute ST elevation or pressure. CT the abdomen and pelvis with contrast showed no evidence of intra-abdominal or pelvic bleeding or major organ injury. Incidental findings of cholelithiasis and inguinal hernias. Chest CT shows left anterior lateral fifth through eighth rib fractures, likely mild pulmonary contusion on the left. No pneumothorax or effusion. CT of the cervical spine was negative for any acute abnormality. CT the head was negative for any acute intracranial abnormality. Patient is still having significant pain, worsened with deep inspiration. Due to broken ribs, pulmonary contusion, will admit the patient for pain control and observation of O2 sat. Abdomen/Pelvis CT 01/23/17 08:49 IMPRESSION: 1. No evidence of intra-abdominal or pelvic bleeding or major organ injury. 2. Mild ileus. 3. Cholelithiasis but no evidence of acute cholecystitis. 4. Bilateral fat containing inguinal hernias. D/ / 01/23/2017 12:14:47 Carolee Roberts MD / samara Interpreting Provider: Carolee Roberts MD Chest CT 01/23/17 08:49 IMPRESSION: 1. Acute nondisplaced left anterolateral 5th through 8th rib fractures with no significant chest wall hematoma. 2. Mild adjacent lingular subpleural subsegmental opacity which may represent atelectasis or possible mild contusion. No pneumothorax or effusion. 3. Cardiomegaly and aortic/coronary atherosclerosis. D/ / 01/23/2017 12:25:11 Moose Wright MD / [email or web address] Interpreting Provider: Moose Wright MD Cervical Spine CT 01/23/17 08:50 IMPRESSION: No acute abnormality of the cervical spine. 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 D/ / Hakan Grover MD / Hakan Grover MD Interpreting Provider: Hakan Grover MD Head CT 01/23/17 08:50 IMPRESSION: 1. No acute intracranial abnormality. 2. Cerebral and cerebellar parenchymal volume loss with frontal lobe predominance. This could be related to a frontal lobe dementia. 3. 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 D/ / 01/23/2017 11:43:57 Elie Ely MD / al Interpreting Provider: Elie Ely MD Vital Signs Temperature 98.1 F 01/23/17 08:39 Pulse Rate 64 01/23/17 08:39 Respiratory Rate 21 01/23/17 08:39 Blood Pressure 137/77 01/23/17 08:39 O2 Sat by Pulse Oximetry 96 01/23/17 08:39 Temperature 98.1 F 01/23/17 08:39 Pulse Rate 67 01/23/17 11:31 Respiratory Rate 18 01/23/17 11:31 Blood Pressure 117/74 01/23/17 11:31 O2 Sat by Pulse Oximetry 98 01/23/17 11:31 Oxygen Delivery Oxygen Delivery Nasal Cannula Medical Decision Making - MDM Narrative Medical decision making narrative: I examined this patient and my medical decision-making was reviewed with the BRICK HANDLER/PA/Advanced Practice Nurse/Resident Physician. I agree with the documented findings, disposition and treatment plan as described except to the extent set forth below. Patient was seen and evaluated on arrival with EMS and Dr. Griffin, I agree with his evaluation and treatment plan, supervise care the patient's stay. Patient presents today after a fall from a wheelchair at home. Denies striking his head is complaining of rib pain but is also having some upper GI bleeding. Going to CT his head and his neck to make sure he did not strike ahead and has an abnormality there images ribs, also image his abdomen as if there is a source for this GI bleeding. No blood that we see here. Checking labs, we will involve social work lecturer, and most likely will need admission. - Gaby: No major abnormalities in CBC or BMP. Troponin negative. EKG showed no acute ST elevation or pressure. CT the abdomen and pelvis with contrast showed no evidence of intra-abdominal or pelvic bleeding or major organ injury. Incidental findings of cholelithiasis and inguinal hernias. Chest CT shows left anterior lateral fifth through eighth rib fractures, likely mild pulmonary contusion on the left. No pneumothorax or effusion. CT of the cervical spine was negative for any acute abnormality. CT the head was negative for any acute intracranial abnormality. Patient is still having significant pain, worsened with deep inspiration. Due to broken ribs, pulmonary contusion, will admit the patient for pain control and observation of O2 sat. Cervical Spine CT 01/23/17 08:50 IMPRESSION: No acute abnormality of the cervical spine. 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 D/ / Hakan Grover MD / Hakan Grover MD Interpreting Provider: Hakan Grover MD Head CT 01/23/17 08:50 IMPRESSION: 1. No acute intracranial abnormality. 2. Cerebral and cerebellar parenchymal volume loss with frontal lobe predominance. This could be related to a frontal lobe dementia. 3. 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 D/ / Elie Ely MD / Elie Ely MD Interpreting Provider: Elie Ely MD Abdomen/Pelvis CT 01/23/17 08:49 IMPRESSION: 1. No evidence of intra-abdominal or pelvic bleeding or major organ injury. 2. Mild ileus. 3. Cholelithiasis but no evidence of acute cholecystitis. 4. Bilateral fat containing inguinal hernias. D/ / 01/23/2017 12:14:47 Carolee Roberts MD / jt Interpreting Provider: Carolee Roberts MD Chest CT 01/23/17 08:49 IMPRESSION: 1. Acute nondisplaced left anterolateral 5th through 8th rib fractures with no significant chest wall hematoma. 2. Mild adjacent lingular subpleural subsegmental opacity which may represent atelectasis or possible mild contusion. No pneumothorax or effusion. 3. Cardiomegaly and aortic/coronary atherosclerosis. The D/ / Moose Wright MD / Moose Wright MD Interpreting Provider: Moose Wright MD Cervical Spine CT 01/23/17 08:50 IMPRESSION: No acute abnormality of the cervical spine. 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 D/ / Hakan Grover MD / Hakan Grover MD Interpreting Provider: Hakan Grover MD Head CT 01/23/17 08:50 IMPRESSION: 1. No acute intracranial abnormality. 2. Cerebral and cerebellar parenchymal volume loss with frontal lobe predominance. This could be related to a frontal lobe dementia. 3. 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 D/ / 01/23/2017 11:43:57 Elie Ely MD / al Interpreting Provider: Elie Ely MD - Medical Records Medical records reviewed: Yes I reviewed the patient's medical records. - Lab Data Lab results reviewed: Yes I reviewed the patient's lab results. Result diagrams: 01/23/17 09:13 01/23/17 09:13 Lab Results 01/23/17 01/23/17 01/23/17 Range/Units 09:13 09:13 09:13 WBC 9.2 (4.3-11.1) K/mcL RBC 3.95 L (4.19-5.50) M/mcL Hgb 12.2 L (12.9-16.9) g/dL Hct 36.6 L (37.5-50.1) % MCV 92.7 (83.0-100.0) fL MCH 30.9 (28.0-33.3) pg MCHC 33.3 (31.6-35.5) g/dL RDW 13.0 (11.5-14.5) % Plt Count 171 (140-400) K/mcL MPV 10.1 (9.4-12.4) fL Immature Gran % 0.3 (0-4) % Seg Neutrophils % 80.2 % Lymphocytes % 11.5 % Monocytes % 7.7 % Eosinophils % 0.0 % Basophils % 0.3 % Neutrophils # 7.4 (1.6-8.9) K/mcL Lymphocytes # 1.1 (0.6-4.6) K/mcL Monocytes # 0.7 (0.0-1.3) K/mcL Eosinophils # 0.0 (0.0-0.6) K/mcL Basophils # 0.0 (0.0-0.2) K/mcL Immature Plt Fraction 4.0 (1.1-6.1) % PT 16.8 H (9.4-12.1) Seconds INR 1.5 APTT 50.9 H (26.0-36.0) Seconds Sodium 137 (136-145) mEq/L Potassium 4.2 (3.5-4.5) mEq/L Chloride 103 (98-109) mEq/L Carbon Dioxide 28 (19-29) mEq/L BUN 30 H (8-26) mg/dL Creatinine 0.93 (0.72-1.25) mg/dL Est GFR ( Amer) > 60 (> 60) Est GFR (Non-Af Amer) > 60 (> 60) BUN/Creatinine Ratio 32 H (6-26) Glucose 115 H (70-99) mg/dL Calculated Osmolality 291 (280-300) Calcium 9.0 (8.6-10.8) mg/dL Troponin I (0-0.03) ng/mL 01/23/17 Range/Units 09:13 WBC (4.3-11.1) K/mcL RBC (4.19-5.50) M/mcL Hgb (12.9-16.9) g/dL Hct (37.5-50.1) % MCV (83.0-100.0) fL MCH (28.0-33.3) pg MCHC (31.6-35.5) g/dL RDW (11.5-14.5) % Plt Count (140-400) K/mcL MPV (9.4-12.4) fL Immature Gran % (0-4) % Seg Neutrophils % % Lymphocytes % % Monocytes % % Eosinophils % % Basophils % % Neutrophils # (1.6-8.9) K/mcL Lymphocytes # (0.6-4.6) K/mcL Monocytes # (0.0-1.3) K/mcL Eosinophils # (0.0-0.6) K/mcL Basophils # (0.0-0.2) K/mcL Immature Plt Fraction (1.1-6.1) % PT (9.4-12.1) Seconds INR APTT (26.0-36.0) Seconds Sodium (136-145) mEq/L Potassium (3.5-4.5) mEq/L Chloride (98-109) mEq/L Carbon Dioxide (19-29) mEq/L BUN (8-26) mg/dL Creatinine (0.72-1.25) mg/dL Est GFR ( Amer) (> 60) Est GFR (Non-Af Amer) (> 60) BUN/Creatinine Ratio (6-26) Glucose (70-99) mg/dL Calculated Osmolality (280-300) Calcium (8.6-10.8) mg/dL Troponin I 0.00 (0-0.03) ng/mL - Radiology Data Radiology results reviewed: Yes I reviewed the patient's radiology results. - EKG Data EKG #1 EKG attestation: Yes I reviewed and interpreted this EKG. EKG results narrative: 01/23/2017 at 08:44. A. fib. Rate 65. QRS 100. QTC 415. Normal [place]. No acute ST changes. No old ekg for comparison. S.B.ASue. - [email or web address] Situation: Demographics, MOA Background: Presenting Complaint, Relevant PMH, Meds, & Allergies Assessment: Vital Signs, Course and respsone to treatment, Exam Concerns, Patient/Family Expectation, Pertinant Lab Results Recommendation: Barrier(s) to disposition, Recommendation based on pending studies, treatments, or consults [email or web address].RCharles Report Given to: Dr. Annika Sutton Repor Time: 13:04
--- NOTE | 2017-01-23 09:14 | Emergency Department Note ---
Disposition Referrals: Luz Camacho MD [Primary Care Provider] - Forms: ED Satisfaction Letter General Adult HPI - General Chief complaint: ED Shortness of Breath/Dyspnea Stated complaint: JORGE, vomiting Time Seen by Provider: 01/23/17 08:43 Source: patient, EMS Mode of arrival: EMS Limitations: no limitations - History of Present Illness Pain Scale: 8 - Related Data Allergies Allergy/AdvReac Type Severity Reaction Status Date / Time Penicillins Allergy Hives Verified 01/23/17 08:52 Sulfa (Sulfonamide Allergy Hives Verified 01/23/17 08:52 Antibiotics) Constitutional: Denies: fever Cardiovascular: Reports: chest pain Respiratory: Denies: dyspnea Gastrointestinal: Reports: vomiting. Denies: abdominal pain, nausea, diarrhea, constipation, hematemesis, melena, hematochezia Musculoskeletal: Denies: back pain, neck pain Neurological: Denies: headache, weakness, numbness, paresthesias Past Medical History - Past Medical History Medical history: Reports: CVA, diabetes, hypertension - Social History Smoking Status: Current every day smoker Alcohol use: Reports: rarely Drug use: Reports: none Physical Exam - General Limitations: no limitations General appearance: alert, in no apparent distress Course Vital Signs Temperature 98.1 F 01/23/17 08:39 Pulse Rate 64 01/23/17 08:39 Respiratory Rate 21 01/23/17 08:39 Blood Pressure 137/77 01/23/17 08:39 O2 Sat by Pulse Oximetry 96 01/23/17 08:39 Temperature 98.1 F 01/23/17 08:39 Pulse Rate 64 01/23/17 08:54 Respiratory Rate 21 01/23/17 08:39 Blood Pressure 137/77 01/23/17 08:39 O2 Sat by Pulse Oximetry 97 01/23/17 09:03 Oxygen Delivery Oxygen Delivery Room Air
[2017-01-23 09:41] LABS: Basophils % 0.3 %; Hematocrit 36.6 % (37.5-50.1); Hemoglobin 12.2 g/dL (12.9-16.9); Immature Granulocytes % 0.3 % (0-4); Lymphocytes # 1.1 K/mcL (0.6-4.6); Lymphocytes % 11.5 %; Mean Corpuscular HGB Conc 33.3 g/dL (31.6-35.5); Mean Corpuscular Hemoglobin 30.9 pg (28.0-33.3); Mean Corpuscular Volume 92.7 fL (83.0-100.0); Mean Platelet Volume 10.1 fL (9.4-12.4); Monocytes # 0.7 K/mcL (0.0-1.3); Monocytes % 7.7 %; Neutrophils # 7.4 K/mcL (1.6-8.9); Platelet Count 171 K/mcL (140-400); Red Blood Count 3.95 M/mcL (4.19-5.50); Segmented Neutrophils % 80.2 %
[2017-01-23 09:48] LABS: INR 1.5; Prothrombin Time 16.8 Seconds (9.4-12.1)
[2017-01-23 09:51] LABS: Activated Partial Thrombo Time 50.9 Seconds (26.0-36.0)
[2017-01-23 10:00] LABS: BUN/Creatinine Ratio 32 (6-26); Blood Urea Nitrogen 30 mg/dL (8-26); Carbon Dioxide 28 mEq/L (19-29); Chloride 103 mEq/L (98-109); Glucose 115 mg/dL (70-99); Osmolality,Calculated 291 (280-300); Potassium 4.2 mEq/L (3.5-4.5); Sodium 137 mEq/L (136-145); eGFR For African Americans > 60 (> 60); eGFR For Non-African Americans > 60 (> 60)
[2017-01-23] MEDS ORDERED: 0.9 % Sodium Chloride 1,000 ML IVC SCH ×2 (10:30→18:00)
[2017-01-23] MEDS ORDERED: Ondansetron 4 MG/2 ML VIAL IVP PRN (16:41)
[2017-01-23] MEDS ORDERED: Naloxone 0.4 MG/ML INJ IVP PRN (16:41)
[2017-01-23] MEDS ORDERED: Albuterol 2.5 MG/3 ML NEBULIZER IH PRN (16:50)
--- NOTE | 2017-01-23 17:07 | Internal Med History&Physical ---
Date of Encounter: 01/23/17 Time of Encounter: 16:30 Assessment and Plan (1) Multiple fractures of ribs, left side, initial encounter for closed fracture Current visit: Yes Status: Acute 1 patient fell while he was transferring from his electric scooter to his wheelchair on . Since that time he has been experiencing pain upon inspiration and difficulty breathing. CT scan of the chest did reveal .Acute nondisplaced left anterolateral 5th through 8th rib fractures with no significant chest wall hematoma. We will give patient pain medication with morphine 2 mg every 4 hours for pain 7-10 and Callery for pain 4-6. We will also administer a muscle relaxer and lidocaine patch 2 we will consult PT and OT 3 incentive spirometry 4 we will hold NSAIDS for now due to patient had a questionable episode of coffee-ground emesis prior to presentation as well as patient is on Pradaxia Qualifiers: Encounter type: initial encounter Qualified Code(s): S22.42XA - Multiple fractures of ribs, left side, initial encounter for closed fracture (2) Coffee ground emesis Current visit: Yes Status: Acute 1 patient had episode of coffee-ground emesis prior to arriving to the ER. He has not had any history of GI bleed in the past. She has not had endoscopy or colonoscopy recently. Patient is on Pradaxia for atrial fibrillation. He denies any melena or hematochezia or any other episodes of coffee-ground emesis. His hemoglobin is stable 12.2. We will continue to monitor H&H every 6 hours 2 we will give patient Protonix 3 GI consult as needed (3) Anticoagulant long-term use Current visit: Yes Status: Acute 1 patient is receiving Pradaxa for atrial fibrillation-he did have an episode of coffee-ground emesis however no other signs or symptoms of bleeding. We will continue to monitor H&H every 6 continue Pradaxa (4) COPD (chronic obstructive pulmonary disease) Current visit: No Status: Chronic continue with oxygen as needed and bronchodilators Qualifiers: COPD type: unspecified COPD Qualified Code(s): J44.9 - Chronic obstructive pulmonary disease, unspecified (5) A-fib Current visit: Yes Status: Acute 1 obtain ekg, rate 80-90 continue with cardizem and pradaxa Qualifiers: Atrial fibrillation type: chronic Qualified Code(s): I48.2 - Chronic atrial fibrillation (6) DVT prophylaxis Current visit: Yes Status: Acute on pradaxa (7) History of CVA (cerebrovascular accident) Current visit: Yes Status: Acute will continue with pradaxaand statin Internal Medicine - H&P: HPI Chief complaint: difficulty breathing Admitted From: Emergency Dept Plans for Post Hospital Care: Home History of present illness: Mr. Hawkins is a 81 year old male past medical history of COPD and atrial fibrillation on Prozac several stroke with left-sided weakness right eye ptosis hypertension. Patient lives independently at home he is wheelchair bound apparently on he was transferring from his electric scooter into his wheelchair and he fell onto his left side. She denies striking his head loss of consciousness neck pain numbness tingling or weakness. He denies any chest pain shortness of breath fevers chills nausea diarrhea or abdominal pain. Since this fall he has been experiencing left sided rib pain having some difficulty breathing. Last night he has has not been able to lie down in his bed he has been increasingly short of breath. He called EMS and upon arrival patient did have an episode of dark emesis which EMS described as coffee-ground in nature. He denies any previous episodes of emesis, or any melena, hematochezia. He denies any NSAID use he is on Pradaxia. According to ER records lab work was obtained which was unremarkable, hemoglobin stable leukocytosis troponin 0. CT of the chest . Acute nondisplaced left anterolateral 5th through 8th rib fractures with no significant chest wall hematoma. CT of C-spine was clear they did obtain a abdominal CT due to report of coffee-ground emesis which was negative for any acute abnormalities. Patient continued to have continued pain despite medication he has been admitted for further workup and evaluation.Presently patient does not appear to be in any respiratory distress he denies any chest pain however he does have pain upon inspiration and is splinting his left chest. His lungs sounds are clear heart sounds are irregular S1-S2 with no rubs close gallops or murmur. His left chest is tender to palpation. Abdomen soft nontender no pedal edema he does have left-sided weakness as well as a right eye proptosis, she states is chronic. He is hemodynamically stable this time, I reveiwed this case with Dr Balbuena who agrees with plan Past Med Surg Social Fam HX - Past Medical History Medical history: CVA, hypertension Psychiatric history: no psych history - Past Surgical History Surgical History: knee replacement - Social History Smoking Status: Current every day smoker Smokeless Tobacco Status: No Alcohol use: rarely Drug use: none - Family History Father Living Status: Hx Family Cardiac Disorders: Yes Hx Family Respiratory Disorders: No Hx Family Cancer: No Hx Family GI Disorders: No Hx Family Genitourinary Disorders: No Hx Family Endocrine Disorder: Yes (DM) Internal Medicine - H&P: Meds Albuterol Sulfate [Proair Hfa] 2 puff IH Q4H PRN 01/23/17 [History] Ascorbate Calcium [Vitamin C] 500 mg PO DAILY 01/23/17 [History] Atorvastatin Calcium [Lipitor] 20 mg PO DAILY 01/23/17 [History] Cyanocobalamin (Vitamin B-12) [Vitamin B12] 1,000 mcg PO DAILY 01/23/17 [History ] Dabigatran [Pradaxa] 150 mg PO BID 01/23/17 [History] Diltiazem HCl [Diltiazem ER] 240 mg PO DAILY 01/23/17 [History] Ferrous Sulfate [Iron] 325 mg PO DAILY 01/23/17 [History] Folic Acid 1 mg PO DAILY 01/23/17 [History] HYDROcodone/Acet 5/325 mg [Callery 5-325 mg] 1 tab PO Q6H PRN 01/23/17 [History] Lisinopril [Zestril] 10 mg PO DAILY 01/23/17 [History] Magnesium Hydroxide [Milk of Magnesia] 10 ml PO DAILY PRN 01/23/17 [History] Oxybutynin [Ditropan] 5 mg PO BID 01/23/17 [History] Tamsulosin [Flomax] 0.4 mg PO DAILY 01/23/17 [History] Allergies Penicillins Allergy (Verified 01/23/17 08:52) Hives Sulfa (Sulfonamide Antibiotics) Allergy (Verified 01/23/17 08:52) Hives All Systems PM: A 10-system review of systems was performed and is negative for pertinent findings except as documented above in the HPI. - Constitutional Constitutional: no chills, no fever(s), no night sweats - EENT Eyes: no change in vision, no discharge, no pain, no photophobia - Cardiovascular Cardiovascular ROS IM: no chest pain, no diaphoresis, no dyspnea, no lightheadedness, no palpitations, no syncope - Respiratory Respiratory: dyspnea on exertion, pain on inspiration, pain with cough - Gastrointestinal Gastrointestinal: no abdominal pain, no diarrhea, no hematemesis, no hematochezia, no melena, no nausea, no vomiting - Musculoskeletal Musculoskeletal ROS IM: no numbness, no tingling - Integumentary Integumentary IM: no rash, no unusual bruising - Neurological Neurological ROS: no confusion, no convulsions, no focal weakness, no numbness, no tingling, no tremor(s) - Hematologic/Lymphatic Hematologic/Lymphatic: no easy bruising - Constitutional Vitals: Temp Pulse Resp BP Pulse Ox 98.2 F 81 14 157/84 94 01/23/17 16:07 01/23/17 16:07 01/23/17 16:07 01/23/17 16:07 01/23/17 16:07 General appearance: Present: A&O X 3, answers questions appropriately - Head Head exam: Present: atraumatic, normocephalic - Eye Eye exam: Present: PERRL, conjuntiva pink, sclera anicteric Pupils: Present: PERRL - Neck Neck exam general surgery: Present: supple, trachea midline. Absent: lymphadenopathy - Respiratory Respiratory exam: Present: CTAB. Absent: accessory muscle use, rales, rhonchi, wheezes - Cardiovascular Cardiovascular exam: Present: irregular rhythm, +S1, +S2. Absent: diastolic murmur, gallop, rubs, systolic murmur - GI/Abdominal GI/Abdominal exam: Present: normal bowel sounds, soft, no peritoneal signs. Absent: distended, tenderness - Extremities Exam Extremities exam: Present: warm, radial pulses palpable and symetrical. Absent : calf tenderness, cyanotic, pedal edema - Neurological Exam Neurological exam: Present: CN II-XII intact, oriented X3, no focal deficits. Absent: pronater drift, facial droop, speech deficit - Skin Skin exam: Present: dry, intact Internal Med - H&P Results - Labs CBC & Chem 7: 01/23/17 17:57 01/23/17 09:13 - Diagnostic Studies Other Images Additional comments: Abdomen/Pelvis CT 01/23/17 08:49 IMPRESSION: 1. No evidence of intra-abdominal or pelvic bleeding or major organ injury. 2. Mild ileus. 3. Cholelithiasis but no evidence of acute cholecystitis. 4. Bilateral fat containing inguinal hernias. D/ / 01/23/2017 12:14:47 Carolee Roberts MD / samara Interpreting Provider: Carolee Roberts MD Chest CT 01/23/17 08:49 IMPRESSION: 1. Acute nondisplaced left anterolateral 5th through 8th rib fractures with no significant chest wall hematoma. 2. Mild adjacent lingular subpleural subsegmental opacity which may represent atelectasis or possible mild contusion. No pneumothorax or effusion. 3. Cardiomegaly and aortic/coronary atherosclerosis. 4. Indeterminate borderline enlarged solitary left axillary lymph node. D/ / 01/23/2017 12:25:11 Moose Wright MD / geremiassalvatore Interpreting Provider: Moose Wright MD Cervical Spine CT 01/23/17 08:50 IMPRESSION: No acute abnormality of the cervical spine. 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 D/ / Hakan Grover MD / Hakan Grover MD Interpreting Provider: Hakan Grover MD Head CT 01/23/17 08:50 IMPRESSION: 1. No acute intracranial abnormality. 2. Cerebral and cerebellar parenchymal volume loss with frontal lobe predominance. This could be related to a frontal lobe dementia. 3. 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 D/ / 01/23/2017 11:43:57 Elie Ely MD / al Interpreting Provider: Elie Ely MD
[2017-01-23] MEDS ORDERED: Acetaminophen 325 MG TABLET PO PRN (17:55)
[2017-01-23 18:12] LABS: Hematocrit 36.4 % (37.5-50.1); Hemoglobin 11.5 g/dL (12.9-16.9)
[2017-01-23] MEDS: *HR* HYDROcodone/Acet 5/325 mg TABLET PO PRN (18:43)
[2017-01-24 02:49] LABS: Basophils % 0.3 %; Hematocrit 34.3 % (37.5-50.1); Hemoglobin 11.1 g/dL (12.9-16.9); Immature Granulocytes % 0.2 % (0-4); Lymphocytes # 0.9 K/mcL (0.6-4.6); Lymphocytes % 14.6 %; Mean Corpuscular HGB Conc 32.4 g/dL (31.6-35.5); Mean Corpuscular Hemoglobin 30.6 pg (28.0-33.3); Mean Corpuscular Volume 94.5 fL (83.0-100.0); Mean Platelet Volume 10.3 fL (9.4-12.4); Monocytes # 0.5 K/mcL (0.0-1.3); Monocytes % 8.1 %; Neutrophils # 4.9 K/mcL (1.6-8.9); Platelet Count 129 K/mcL (140-400); Red Blood Count 3.63 M/mcL (4.19-5.50); Red Cell Distribution Width 12.6 % (11.5-14.5); Segmented Neutrophils % 76.8 %
[2017-01-24 03:04] LABS: BUN/Creatinine Ratio 29 (6-26); Blood Urea Nitrogen 23 mg/dL (8-26); Calcium 8.3 mg/dL (8.6-10.8); Carbon Dioxide 30 mEq/L (19-29); Chloride 105 mEq/L (98-109); Glucose 99 mg/dL (70-99); Magnesium 1.8 mg/dL (1.6-2.6); Osmolality,Calculated 292 (280-300); Sodium 139 mEq/L (136-145); eGFR For African Americans > 60 (> 60); eGFR For Non-African Americans > 60 (> 60)
--- NOTE | 2017-01-24 08:22 | Electrocardiograph Report ---
[facility] Test Date: 2017-01-23 Pat Name: Aaron Hawkins Department: 105 Room: 3B12 Gender: M Director Telecommunications: : 1935 Requested By: Gordy Griffin Order Number: [id number] Reading MD: Bharath Xie MD Measurements Intervals [place] Rate: 65 P: AK: 0 QRS: 13 QRSD: 100 T: 58 QT: 404 QTc: 415 Interpretive Statements ATRIAL FIBRILLATION NONSPECIFIC T-WAVE ABNORMALITY ABNORMAL RHYTHM ECG Electronically Signed On 01-24-2017 8:20:05 EDT by Bharath Xie MD
[2017-01-24] MEDS: Pantoprazole 40 MG VIAL IVP SCH (09:28)
[2017-01-24] MEDS: Cyanocobalamin (B-12) 1,000 MCG TABLET PO SCH (09:29)
[2017-01-24] MEDS: Folic Acid 1 MG TABLET PO SCH (09:29)
[2017-01-24] MEDS: Ascorbic Acid 500 MG TABLET PO SCH (09:29)
[2017-01-24] MEDS: Diltiazem CD (24hr) 240 MG CAPSULE PO SCH (09:29)
[2017-01-24] MEDS: *HR* Morphine 2 MG/ML SYRINGE IVP PRN ×2 (09:32→13:33)
[2017-01-24 12:07] LABS: Hematocrit 37.2 % (37.5-50.1); Hemoglobin 11.8 g/dL (12.9-16.9)
--- NOTE | 2017-01-24 17:52 | Internal Med Progress Note ---
Date of Encounter: 01/24/17 Time of Encounter: 09:10 - Assessment and plan (1) Multiple fractures of ribs, left side, initial encounter for closed fracture Current Visit: Yes Status: Acute Assessment and plan: Multiple left anterior rib fracture status post fall at home. Patient is increased pain with movement or deep inspiration. Continue to treat pain, incentive spirometry. Ambulate early as much as possible. Chest CT 01/23/17 08:49 IMPRESSION: 1. Acute nondisplaced left anterolateral 5th through 8th rib fractures with no significant chest wall hematoma. 2. Mild adjacent lingular subpleural subsegmental opacity which may represent atelectasis or possible mild contusion. No pneumothorax or effusion. 3. Cardiomegaly and aortic/coronary atherosclerosis. 4. Indeterminate borderline enlarged solitary left axillary lymph node. D/ / 01/23/2017 12:25:11 Moose Wright MD / celestina Interpreting Provider: Moose Wright MD Qualifiers: Encounter type: initial encounter Qualified Code(s): S22.42XA - Multiple fractures of ribs, left side, initial encounter for closed fracture (2) Obesity (BMI 30.0-34.9) Current Visit: No Status: Chronic Assessment and plan: Chronic. Lifestyle and diet changes. (3) Hypertension Current Visit: No Status: Chronic Assessment and plan: Chronic. Continue home medications. Qualifiers: Hypertension type: essential hypertension Qualified Code(s): I10 - Essential (primary) hypertension (4) Dyslipidemia Current Visit: No Status: Chronic Assessment and plan: Chronic. Continue home medications. (5) Depression with anxiety Current Visit: No Status: Chronic Assessment and plan: Patient is not currently on any medications. Patient states that he feels very sad about his recent fall and in the residential. He was also tearful with pediatric social worker has discussed that he needed to have steiner upfront since he used of his Medicare days for the residential. Will consult psychiatry tomorrow for recommendation for medication for this patient. Patient could probably benefit from counseling, as well. (6) COPD (chronic obstructive pulmonary disease) Current Visit: No Status: Chronic Assessment and plan: No acute exacerbation. Continue home medications and supportive treatment. Patient is doing incentive spirometry for rib fractures. We will continue to monitor. Qualifiers: COPD type: unspecified COPD Qualified Code(s): J44.9 - Chronic obstructive pulmonary disease, unspecified (7) Atrial fibrillation Current Visit: No Status: Chronic Assessment and plan: Chronic. Continue Cardizem and PRadaxa. Rate controlled. Qualifiers: Atrial fibrillation type: chronic Qualified Code(s): I48.2 - Chronic atrial fibrillation (8) Coffee ground emesis Current Visit: Yes Status: Acute Assessment and plan: Patient reports coffee-ground emesis prior to admission. He has not had any since. He has no epigastric tenderness or nausea. Hemoglobin is 11.8 this afternoon. Patient has not had endoscopy or colonoscopy recently. He is on anticoagulation for chronic A. fib. We will continue to monitor labs and patient condition. Continue Protonix IV Consult GI as needed Prepare to transfuse packed red blood cells if needed. (9) Anticoagulant long-term use Current Visit: Yes Status: Acute Assessment and plan: Patient is on Pradaxa for chronic A. fib. (10) DVT prophylaxis Current Visit: Yes Status: Acute Assessment and plan: Plan as above. - Time Spent With Patient less than 15 minutes - Subjective Interval history: Patient was seen and assessed at 9:10 AM. Sitting up in his bed, calm his alert and oriented. He states that he lives at home with his sister and brother -in-law. He denies any further coffee-ground emesis. I redrew an H&H at noon, hemoglobin is 11.8. We will continue to monitor. I did stop his IV fluids, as well. We started incentive spirometry today. He is not in any COPD exacerbation, but he does have excruciating pain with deep inspiration and movement. PT has recommended intermediate facility for rehabilitation upon discharge. phlebotomy services technician is on board. Patient is discussing financial situation with family. Will reevaluate tomorrow for needs and possible discharge. - Constitutional Vitals: Temp Pulse Resp BP Pulse Ox 97.7 F 63 14 147/93 93 01/24/17 15:47 01/24/17 15:47 01/24/17 15:47 01/24/17 15:47 01/24/17 15:47 General appearance: Present: cooperative, A&O X 3, pleasant, answers questions appropriately Exam: Mild distress, increases to severe distress with movement deep inspiration. - Head Head exam: Present: normal inspection - Eye Eye exam: Present: normal appearance, conjuntiva pink - ENT ENT exam: Present: mucous membranes moist, normal external ear exam - Respiratory Respiratory exam: Present: chest wall tenderness, decreased breath sounds, CTAB. Absent: rales, respiratory distress, rhonchi, stridor, wheezes, tachypnea - Cardiovascular Cardiovascular exam: Present: RRR, +S1, +S2. Absent: diastolic murmur, systolic murmur - GI/Abdominal GI/Abdominal exam: Present: distended, normal bowel sounds, soft. Absent: hepatomegaly, tenderness - Extremities Exam Extremities exam: Present: normal capillary refill, warm, radial pulses palpable and symetrical. Absent: pedal edema, tenderness - Neurological Exam Neurological exam: Present: alert, oriented X3, no focal deficits. Absent: facial droop, speech deficit - Skin Skin exam: Present: dry, intact, normal color. Absent: warm Internal Medicine: Result - Labs CBC & Chem 7: 01/24/17 11:52 01/24/17 02:00 Labs: Short CBC 01/23/17 01/24/17 01/24/17 Range/Units 17:57 02:00 02:00 WBC 6.4 (4.3-11.1) K/mcL Hgb 11.5 L 11.0 L 11.1 L (12.9-16.9) g/dL Hct 36.4 L 34.0 L 34.3 L (37.5-50.1) % Plt Count 129 L (140-400) K/mcL Neutrophils # 4.9 (1.6-8.9) K/mcL 01/24/17 Range/Units 11:52 WBC (4.3-11.1) K/mcL Hgb 11.8 L (12.9-16.9) g/dL Hct 37.2 L (37.5-50.1) % Plt Count (140-400) K/mcL Neutrophils # (1.6-8.9) K/mcL BMP 01/24/17 02:00 Sodium 139 Potassium 4.0 Chloride 105 Carbon Dioxide 30 H BUN 23 Creatinine 0.79 Glucose 99 Calcium 8.3 L - ABG Interpretation ABG results: PT/INR, D-dimer PT 16.8 Seconds (9.4-12.1) H 01/23/17 09:13 - VTE Reasons for not Prescribing Prophylaxis: Not indicated-Anticoagulated or INR therapeutic Consult Discharge Plan - Plan Referrals: Luz Camacho MD [Primary Care Provider] -
--- NOTE | 2017-01-24 20:10 | Electrocardiograph Report ---
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
[2017-01-25] MEDS: *HR* Morphine 2 MG/ML SYRINGE IVP PRN ×3 (00:45→21:00)
[2017-01-25 06:55] LABS: Hematocrit 34.3 % (37.5-50.1); Hemoglobin 10.8 g/dL (12.9-16.9); Immature Granulocytes % 0.4 % (0-4); Lymphocytes % 17.4 %; Mean Corpuscular HGB Conc 31.5 g/dL (31.6-35.5); Mean Corpuscular Hemoglobin 29.7 pg (28.0-33.3); Mean Corpuscular Volume 94.2 fL (83.0-100.0); Mean Platelet Volume 10.1 fL (9.4-12.4); Platelet Count 137 K/mcL (140-400); Red Blood Count 3.64 M/mcL (4.19-5.50); Red Cell Distribution Width 12.5 % (11.5-14.5); Segmented Neutrophils % 72.2 %
[2017-01-25 06:56] LABS: Basophils % 0.4 %; Lymphocytes # 1.3 K/mcL (0.6-4.6); Monocytes # 0.7 K/mcL (0.0-1.3); Monocytes % 9.6 %; Neutrophils # 5.2 K/mcL (1.6-8.9)
[2017-01-25 06:57] LABS: BUN/Creatinine Ratio 25 (6-26); Blood Urea Nitrogen 21 mg/dL (8-26); Calcium 8.7 mg/dL (8.6-10.8); Carbon Dioxide 30 mEq/L (19-29); Chloride 104 mEq/L (98-109); Glucose 100 mg/dL (70-99); Osmolality,Calculated 289 (280-300); Potassium 4.1 mEq/L (3.5-4.5); Sodium 138 mEq/L (136-145); eGFR For African Americans > 60 (> 60); eGFR For Non-African Americans > 60 (> 60)
[2017-01-25] MEDS: Cyanocobalamin (B-12) 1,000 MCG TABLET PO SCH (08:07)
[2017-01-25] MEDS: Folic Acid 1 MG TABLET PO SCH (08:07)
[2017-01-25] MEDS: Pantoprazole 40 MG VIAL IVP SCH (08:07)
[2017-01-25] MEDS: Ascorbic Acid 500 MG TABLET PO SCH (08:08)
[2017-01-25] MEDS: Diltiazem CD (24hr) 240 MG CAPSULE PO SCH (08:08)
[2017-01-25 11:24] LABS: % Iron Saturation 11 % (20-55); Iron 26 mcg/dL (65-175); Transferrin 164 mg/dL (174-364)
[2017-01-25 11:59] LABS: Folate 19.2 ng/mL (7.0-31.4)
--- NOTE | 2017-01-25 16:06 | Internal Med Progress Note ---
Date of Encounter: 01/25/17 Time of Encounter: 09:05 - Assessment and plan (1) Multiple fractures of ribs, left side, initial encounter for closed fracture Current Visit: Yes Status: Acute Assessment and plan: Multiple left anterior rib fracture status post fall at home. Patient is increased pain with movement or deep inspiration. Continue to treat pain, and encourage incentive spirometry. Patient up to chair as much as possible. Patient has rhonchi today. I have added scheduled duo nebs, guaifenesin twice a day. Chest CT 01/23/17 08:49 IMPRESSION: 1. Acute nondisplaced left anterolateral 5th through 8th rib fractures with no significant chest wall hematoma. 2. Mild adjacent lingular subpleural subsegmental opacity which may represent atelectasis or possible mild contusion. No pneumothorax or effusion. 3. Cardiomegaly and aortic/coronary atherosclerosis. 4. Indeterminate borderline enlarged solitary left axillary lymph node. D/ / 01/23/2017 12:25:11 Moose Wright MD / celestina Interpreting Provider: Moose Wright MD Qualifiers: Encounter type: initial encounter Qualified Code(s): S22.42XA - Multiple fractures of ribs, left side, initial encounter for closed fracture (2) Obesity (BMI 30.0-34.9) Current Visit: No Status: Chronic Assessment and plan: Chronic. Lifestyle and diet changes. (3) Hypertension Current Visit: No Status: Chronic Assessment and plan: Chronic. Continue home medications. Well-controlled and inpatient setting. Qualifiers: Hypertension type: essential hypertension Qualified Code(s): I10 - Essential (primary) hypertension (4) Dyslipidemia Current Visit: No Status: Chronic Assessment and plan: Chronic. Continue home medications. (5) Depression with anxiety Current Visit: No Status: Chronic Assessment and plan: Patient is not currently on any medications. Psychiatry has been consulted, I spoke with Cammy on 1A this morning regarding recommendations for medication for patient. She said she would have psychiatrist call. Consultation is still pending. Patient could probably benefit from counseling, as well. (6) COPD (chronic obstructive pulmonary disease) Current Visit: No Status: Chronic Assessment and plan: No acute exacerbation. Continue home medications and supportive treatment. Patient is doing incentive spirometry for rib fractures. We will continue to monitor. I have added scheduled duo nebs and guaifenesin. Qualifiers: COPD type: unspecified COPD Qualified Code(s): J44.9 - Chronic obstructive pulmonary disease, unspecified (7) Atrial fibrillation Current Visit: No Status: Chronic Assessment and plan: Chronic. Continue Cardizem and PRadaxa. Rate controlled. Qualifiers: Atrial fibrillation type: chronic Qualified Code(s): I48.2 - Chronic atrial fibrillation (8) Coffee ground emesis Current Visit: Yes Status: Resolved Assessment and plan: Patient reports coffee-ground emesis prior to admission. He has not had any since. He has no epigastric tenderness or nausea. Hemoglobin is 10.8 this morning. Patient has not had endoscopy or colonoscopy recently. He is on anticoagulation for chronic A. fib. We will continue to monitor labs and patient condition. Patient states he still had a bowel movement, we have increased in number and frequency of laxatives and stool softeners and an attempt to collect a stool specimen for occult blood. Continue Protonix IV Consult GI as needed Prepare to transfuse packed red blood cells if needed. (9) Anticoagulant long-term use Current Visit: Yes Status: Chronic Assessment and plan: Patient is on Pradaxa for chronic A. fib. (10) DVT prophylaxis Current Visit: Yes Status: Acute Assessment and plan: Plan as above. - Time Spent With Patient less than 15 minutes - Subjective Interval history: Patient was seen and assessed at 905 this morning. He is alert and oriented, in sitting up in his bed, is eaten breakfast. Again today he denies further coffee-ground emesis or abdominal pain/cramping. He reports that he still has not had a bowel movement. We are waiting for stool occult blood due to declining hemoglobin, which is 10.8.. IV fluids were stopped. Patient still complains of left anterior rib pain with movement and deep inspiration. He does get relief from pain medication. Patient has decided to go home with home health and will need a Francisco left, as well as a shower seat. Still waiting on recommendations from 1 A 4 appropriate medication. Patient states today that he would like for me to shoot him in the end it all. He does laugh when he says it. He denies suicidal ideations of wanting to harm himself. He denies any homicidal ideations, as well. utility worker driver is working on home health at discharge, however is waiting on area agency on aging to be able to see patient when he gets home. Patient has rhonchi in anterior and posterior lung rice. He is doing incentive spirometry, I will also add reading treatments scheduled and guaifenesin. - Constitutional Vitals: Temp Pulse Resp BP Pulse Ox 97.9 F 55 16 126/68 91 01/25/17 15:39 01/25/17 15:39 01/25/17 15:39 01/25/17 15:39 01/25/17 15:39 General appearance: Present: cooperative, mild distress, A&O X 3, pleasant, answers questions appropriately - Head Head exam: Present: normal inspection - Eye Eye exam: Present: normal appearance, conjuntiva pink - Respiratory Respiratory exam: Present: chest wall tenderness, decreased breath sounds, rhonchi. Absent: prolonged expiratory phase, rales, respiratory distress, stridor, wheezes - Cardiovascular Cardiovascular exam: Present: RRR, +S1, +S2. Absent: diastolic murmur, systolic murmur - Extremities Exam Extremities exam: Present: normal capillary refill, warm, radial pulses palpable and symetrical. Absent: pedal edema, tenderness - Neurological Exam Neurological exam: Present: alert, oriented X3, no focal deficits. Absent: altered, facial droop, speech deficit - Psychiatric Psychiatric exam: Present: depressed, normal affect. Absent: homicidal ideation , suicidal ideation - Skin Skin exam: Present: dry, intact, warm Internal Medicine: Result - Labs CBC & Chem 7: 01/25/17 06:16 01/25/17 06:16 Labs: Short CBC 01/25/17 Range/Units 06:16 WBC 7.3 (4.3-11.1) K/mcL Hgb 10.8 L (12.9-16.9) g/dL Hct 34.3 L (37.5-50.1) % Plt Count 137 L (140-400) K/mcL Neutrophils # 5.2 (1.6-8.9) K/mcL BMP 01/25/17 06:16 Sodium 138 Potassium 4.1 Chloride 104 Carbon Dioxide 30 H BUN 21 Creatinine 0.83 Glucose 100 H Calcium 8.7 - ABG Interpretation ABG results: PT/INR, D-dimer PT 16.8 Seconds (9.4-12.1) H 01/23/17 09:13 - VTE Reasons for not Prescribing Prophylaxis: Not indicated-Anticoagulated or INR therapeutic Consult Discharge Plan - Plan Referrals: Luz Camacho MD [Primary Care Provider] -
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
[2017-01-25 17:04] LABS: Hematocrit 34.1 % (37.5-50.1); Hemoglobin 11.4 g/dL (12.9-16.9)
[2017-01-25] MEDS ORDERED: Ondansetron 4 MG/2 ML VIAL IVP PRN (20:40)
[2017-01-25] MEDS: Ipratropium/Albuterol Neb 3 ML IH SCH ×2 (20:53→20:57)
[2017-01-26] MEDS: Ipratropium/Albuterol Neb 3 ML IH SCH ×4 (04:12→22:18)
[2017-01-26 05:35] LABS: Basophils % 0.3 %; Hematocrit 33.2 % (37.5-50.1); Hemoglobin 10.7 g/dL (12.9-16.9); Immature Granulocytes % 0.3 % (0-4); Lymphocytes # 1.3 K/mcL (0.6-4.6); Lymphocytes % 18.1 %; Mean Corpuscular HGB Conc 32.2 g/dL (31.6-35.5); Mean Corpuscular Hemoglobin 30.1 pg (28.0-33.3); Mean Corpuscular Volume 93.3 fL (83.0-100.0); Mean Platelet Volume 10.3 fL (9.4-12.4); Monocytes # 0.6 K/mcL (0.0-1.3); Monocytes % 8.7 %; Platelet Count 135 K/mcL (140-400); Red Blood Count 3.56 M/mcL (4.19-5.50); Red Cell Distribution Width 12.7 % (11.5-14.5); Segmented Neutrophils % 72.6 %
[2017-01-26 05:39] LABS: BUN/Creatinine Ratio 29 (6-26); Blood Urea Nitrogen 25 mg/dL (8-26); Calcium 8.6 mg/dL (8.6-10.8); Carbon Dioxide 30 mEq/L (19-29); Chloride 103 mEq/L (98-109); Glucose 104 mg/dL (70-99); Osmolality,Calculated 291 (280-300); Potassium 4.4 mEq/L (3.5-4.5); Sodium 138 mEq/L (136-145); eGFR For African Americans > 60 (> 60); eGFR For Non-African Americans > 60 (> 60)
[2017-01-26] MEDS: Pantoprazole 40 MG VIAL IVP SCH (08:06)
[2017-01-26] MEDS: Folic Acid 1 MG TABLET PO SCH (08:06)
[2017-01-26] MEDS: Cyanocobalamin (B-12) 1,000 MCG TABLET PO SCH (08:06)
[2017-01-26] MEDS: Diltiazem CD (24hr) 240 MG CAPSULE PO SCH (08:06)
[2017-01-26] MEDS: Ascorbic Acid 500 MG TABLET PO SCH (08:06)
[2017-01-26 09:02] LABS: Bilirubin,Urine Small (Negative); Blood,Urine Small (Negative); Color,Urine Dark Yellow (Yellow); Glucose,Urine (UA) Normal (Normal); Ketones,Urine Trace mg/dL (Negative); Leukocyte Esterase,Urine Large (Negative); Nitrite,Urine Positive (Negative); Protein,Urine Negative (Neg-Trace); Specific Gravity,Urine 1.028 (1.010-1.025)
[2017-01-26 09:04] LABS: Bacteria,Urine Many per hpf (None-Few); Clarity,Urine Slightly Cloudy (Clear); Squamous Epithelial Cell,Urine Moderate per lpf (None-Few); WBC,Urine TNTC per hpf (0-3)
--- NOTE | 2017-01-26 18:33 | Internal Med Progress Note ---
Date of Encounter: 01/26/17 Time of Encounter: 09:05 - Assessment and plan (1) Multiple fractures of ribs, left side, initial encounter for closed fracture Current Visit: Yes Status: Acute Assessment and plan: Multiple left anterior rib fracture status post fall at home. Patient is increased pain with movement or deep inspiration. Continue to treat pain, and encourage incentive spirometry. Patient up to chair as much as possible. Continue scheduled duo nebs, guaifenesin twice a day. Lungs are diminished with scattered rhonchi. Slightly improved from yesterday. Chest CT 01/23/17 08:49 IMPRESSION: 1. Acute nondisplaced left anterolateral 5th through 8th rib fractures with no significant chest wall hematoma. 2. Mild adjacent lingular subpleural subsegmental opacity which may represent atelectasis or possible mild contusion. No pneumothorax or effusion. 3. Cardiomegaly and aortic/coronary atherosclerosis. 4. Indeterminate borderline enlarged solitary left axillary lymph node. D/ / 01/23/2017 12:25:11 Moose Wright MD / celest[facility] Interpreting Provider: Moose Wright MD Qualifiers: Encounter type: initial encounter Qualified Code(s): S22.42XA - Multiple fractures of ribs, left side, initial encounter for closed fracture (2) Obesity (BMI 30.0-34.9) Current Visit: No Status: Chronic Assessment and plan: Chronic. Lifestyle and diet changes. (3) Hypertension Current Visit: No Status: Chronic Assessment and plan: Chronic. Continue home medications. Well-controlled and inpatient setting. Qualifiers: Hypertension type: essential hypertension Qualified Code(s): I10 - Essential (primary) hypertension (4) Dyslipidemia Current Visit: No Status: Chronic Assessment and plan: Chronic. Continue home medications. (5) Depression with anxiety Current Visit: No Status: Chronic Assessment and plan: Patient was seen by psychiatry today. They felt that he does not meet criteria for medication management at this time. They feel he is stable for discharge at this time. Patient denies suicidal ideations or homicidal ideations. We will continue to monitor and consult again if necessary. (6) COPD (chronic obstructive pulmonary disease) Current Visit: No Status: Chronic Assessment and plan: No acute exacerbation. Continue home medications and supportive treatment. Patient is doing incentive spirometry for rib fractures. We will continue to monitor. I have added scheduled duo nebs and guaifenesin. Qualifiers: COPD type: unspecified COPD Qualified Code(s): J44.9 - Chronic obstructive pulmonary disease, unspecified (7) Atrial fibrillation Current Visit: No Status: Chronic Assessment and plan: Chronic. Continue Cardizem and PRadaxa. Rate controlled. Qualifiers: Atrial fibrillation type: chronic Qualified Code(s): I48.2 - Chronic atrial fibrillation (8) Coffee ground emesis Current Visit: Yes Status: Resolved (9) Anticoagulant long-term use Current Visit: Yes Status: Chronic Assessment and plan: Patient is on Pradaxa for chronic A. fib. Has been held. (10) Anemia Current Visit: No Status: Acute Assessment and plan: Patient has been anemic since arrival. Hemoglobin today is 10.7. We will continue to monitor. He was on Pradaxa currently at home and did report coffee- ground emesis prior to arrival. It is being held. Has had none since. Stool occult blood was negative. Urine was positive for small amount of blood. Continue to monitor. Qualifiers: Anemia type: unspecified type Qualified Code(s): D64.9 - Anemia, unspecified (11) UTI (urinary tract infection) Current Visit: No Status: Acute Assessment and plan: Urine was collected today trace of ketones, small amount of fluid, positive for nitrites and large amount of leukocyte esterase 2 numerous to count white cells , 3-5 red blood cells with many bacteria. Cultures pending. Patient was treated in December for Escherichia coli ESBL. I have began treatment for this with ertapenem 1 g daily. Culture and sensitivity from this visit are still pending. Qualifiers: Urinary tract infection type: acute cystitis Hematuria presence: without hematuria Qualified Code(s): N30.00 - Acute cystitis without hematuria (12) DVT prophylaxis Current Visit: Yes Status: Acute Assessment and plan: Patient was on Pradaxa, is being held due to anemia, no other pharmacologic intervention at this time. SCDs ordered. - Subjective Interval history: Patient was seen and assessed 9:05 AM. He was being cared for by 3-4 nursing staff in the room. He was on the bedside commode and you are having difficulty getting him back to his bed. I spoke to the social staff worker regarding his ability to go home with only a [place] lift and a shower seat and only the assistance of his elderly family to care for him. Currently social staff worker is working on filing for Medicaid. At this time, we are either weaning pending number for Medicaid or approval of Medicaid for ECF placement. If this is not possible, patient will have to discharge home with renewal nursing service. We will continue to keep him here as he is now in need of IV antibiotics. - Constitutional Vitals: Temp Pulse Resp BP Pulse Ox 97.8 F 50 14 120/75 97 01/26/17 15:21 01/26/17 15:21 01/26/17 15:58 01/26/17 15:21 01/26/17 15:58 General appearance: Present: cooperative, mild distress, A&O X 3, pleasant, no acute distress, answers questions appropriately - Head Head exam: Present: normal inspection - Eye Eye exam: Present: EOMI, normal appearance, conjuntiva pink - ENT ENT exam: Present: mucous membranes moist, normal exam, normal external ear exam - Neck Neck exam general surgery: Present: normal inspection. Absent: lymphadenopathy , tenderness - Respiratory Respiratory exam: Present: chest wall tenderness, decreased breath sounds, CTAB , rhonchi. Absent: rales, respiratory distress, stridor, wheezes - Cardiovascular Cardiovascular exam: Present: RRR, +S1, +S2. Absent: diastolic murmur, systolic murmur - GI/Abdominal GI/Abdominal exam: Present: distended, firm, normal bowel sounds. Absent: hepatomegaly, tenderness - Extremities Exam Extremities exam: Present: warm, radial pulses palpable and symetrical. Absent : tenderness - Neurological Exam Neurological exam: Present: alert, oriented X3, no focal deficits, strengths equal and symetr throughout. Absent: altered, facial droop, speech deficit Internal Medicine: Result - Labs CBC & Chem 7: 01/26/17 05:07 01/26/17 05:07 Labs: Short CBC 01/26/17 Range/Units 05:07 WBC 6.9 (4.3-11.1) K/mcL Hgb 10.7 L (12.9-16.9) g/dL Hct 33.2 L (37.5-50.1) % Plt Count 135 L (140-400) K/mcL Neutrophils # 5.0 (1.6-8.9) K/mcL BMP 01/26/17 05:07 Sodium 138 Potassium 4.4 Chloride 103 Carbon Dioxide 30 H BUN 25 Creatinine 0.86 Glucose 104 H Calcium 8.6 Urine 01/26/17 Range/Units 08:34 Urine Color Dark Yellow (Yellow) Urine Clarity Slightly Cloudy A (Clear) Urine pH 6.0 (5.0-8.0) pH Units Ur Specific [place] 1.028 H (1.010-1.025) Urine Protein Negative (Neg-Trace) mg/dL Urine Glucose (UA) Normal (Normal) mg/dL - ABG Interpretation ABG results: PT/INR, D-dimer PT 16.8 Seconds (9.4-12.1) H 01/23/17 09:13 - VTE Reasons for not Prescribing Prophylaxis: Not indicated-Anticoagulated or INR therapeutic Consult Discharge Plan - Plan Referrals: Luz Camacho MD [Primary Care Provider] -
[2017-01-26] MEDS: *HR* HYDROcodone/Acet 5/325 mg TABLET PO PRN (20:13)
[2017-01-27] MEDS: Ipratropium/Albuterol Neb 3 ML IH SCH ×4 (03:29→22:21)
[2017-01-27 05:10] LABS: Basophils % 0.4 %; Hematocrit 32.3 % (37.5-50.1); Hemoglobin 10.6 g/dL (12.9-16.9); Immature Granulocytes % 0.3 % (0-4); Lymphocytes # 1.5 K/mcL (0.6-4.6); Lymphocytes % 20.8 %; Mean Corpuscular HGB Conc 32.8 g/dL (31.6-35.5); Mean Corpuscular Hemoglobin 30.9 pg (28.0-33.3); Mean Corpuscular Volume 94.2 fL (83.0-100.0); Mean Platelet Volume 10.6 fL (9.4-12.4); Monocytes # 0.6 K/mcL (0.0-1.3); Monocytes % 8.7 %; Platelet Count 141 K/mcL (140-400); Red Blood Count 3.43 M/mcL (4.19-5.50); Red Cell Distribution Width 13.1 % (11.5-14.5); Segmented Neutrophils % 69.8 %
[2017-01-27 05:35] LABS: BUN/Creatinine Ratio 25 (6-26); Blood Urea Nitrogen 22 mg/dL (8-26); Calcium 8.5 mg/dL (8.6-10.8); Carbon Dioxide 31 mEq/L (19-29); Chloride 102 mEq/L (98-109); Glucose 92 mg/dL (70-99); Osmolality,Calculated 287 (280-300); Potassium 4.5 mEq/L (3.5-4.5); Sodium 137 mEq/L (136-145); eGFR For African Americans > 60 (> 60); eGFR For Non-African Americans > 60 (> 60)
[2017-01-27] MEDS: Folic Acid 1 MG TABLET PO SCH (08:31)
[2017-01-27] MEDS: Diltiazem CD (24hr) 240 MG CAPSULE PO SCH (08:31)
[2017-01-27] MEDS: Ascorbic Acid 500 MG TABLET PO SCH (08:31)
[2017-01-27] MEDS: Cyanocobalamin (B-12) 1,000 MCG TABLET PO SCH (08:31)
[2017-01-27] MEDS: Pantoprazole 40 MG VIAL IVP SCH (08:35)
[2017-01-27] MEDS: *HR* Morphine 2 MG/ML SYRINGE IVP PRN (12:09)
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
[2017-01-28] MEDS: Ipratropium/Albuterol Neb 3 ML IH SCH ×4 (05:17→22:07)
[2017-01-28] MEDS: Folic Acid 1 MG TABLET PO SCH (09:46)
[2017-01-28] MEDS: Ascorbic Acid 500 MG TABLET PO SCH (09:46)
[2017-01-28] MEDS: Pantoprazole 40 MG VIAL IVP SCH (09:47)
[2017-01-28] MEDS: Cyanocobalamin (B-12) 1,000 MCG TABLET PO SCH (09:47)
[2017-01-28] MEDS: Diltiazem CD (24hr) 240 MG CAPSULE PO SCH (09:47)
--- NOTE | 2017-01-28 16:22 | Internal Med Progress Note ---
Date of Encounter: 01/28/17 Time of Encounter: 16:28 - Assessment and plan (1) Multiple fractures of ribs, left side, initial encounter for closed fracture Current Visit: Yes Status: Acute Assessment and plan: Multiple left anterior rib fracture status post fall at home. 01/23: CT chest showed acute nondisplaced left anterolateral fifth through eighth rib fractures with no significant chest wall hematoma, mild as just a lingular subpleural subsegmental opacity. continue pain meds. sit in chair tid. Qualifiers: Encounter type: initial encounter Qualified Code(s): S22.42XA - Multiple fractures of ribs, left side, initial encounter for closed fracture (2) Atrial fibrillation Current Visit: No Status: Chronic Assessment and plan: Chronic. Continue Cardizem. Rate controlled. Qualifiers: Atrial fibrillation type: chronic Qualified Code(s): I48.2 - Chronic atrial fibrillation (3) Anemia Current Visit: No Status: Acute Assessment and plan: chronic anemia. Patient on pradaxa and reports an episode of coffee-ground emesis at home. B12 is elevated, folate is within normal limits. holding pradaxa. hgb is 11. hemodynamically stable. close monitor. Qualifiers: Anemia type: unspecified type Qualified Code(s): D64.9 - Anemia, unspecified (4) CAD (coronary artery disease) Current Visit: No Status: Chronic Qualifiers: Coronary Disease-Associated Artery/Lesion type: [place] artery [place] vs. transplanted heart: [place] heart Associated angina: without angina Qualified Code(s): I25.10 - Atherosclerotic heart disease of [place] coronary artery without angina pectoris (5) COPD (chronic obstructive pulmonary disease) Current Visit: No Status: Chronic Assessment and plan: No acute exacerbation. Continue nebs and Guaifenesin. Patient is doing incentive spirometry for rib fractures. Qualifiers: COPD type: unspecified COPD Qualified Code(s): J44.9 - Chronic obstructive pulmonary disease, unspecified (6) Hypertension Current Visit: No Status: Chronic Assessment and plan: Chronic. Continue home medications. Well-controlled and inpatient setting. When necessary medication for hypertension. Qualifiers: Hypertension type: essential hypertension Qualified Code(s): I10 - Essential (primary) hypertension (7) Obesity (BMI 30.0-34.9) Current Visit: No Status: Chronic Assessment and plan: Chronic. Lifestyle and diet modifications (8) UTI (urinary tract infection) Current Visit: No Status: Acute Assessment and plan: ESBL ecoli UTI. continue ertapenem for total of 5 days Qualifiers: Urinary tract infection type: acute cystitis Hematuria presence: without hematuria Qualified Code(s): N30.00 - Acute cystitis without hematuria - Constitutional Vitals: Temp Pulse Resp BP Pulse Ox 97.9 F 53 15 116/68 95 01/28/17 16:11 01/28/17 16:11 01/28/17 16:11 01/28/17 16:11 01/28/17 16:11 General appearance: Present: cooperative, A&O X 3, pleasant, no acute distress, answers questions appropriately - Neck Neck exam general surgery: Present: supple, trachea midline. Absent: lymphadenopathy - Cardiovascular Cardiovascular exam: Present: RRR - GI/Abdominal GI/Abdominal exam: Present: normal bowel sounds, soft. Absent: distended, tenderness - Extremities Exam Extremities exam: Absent: pedal edema - Back Exam Back exam: Absent: CVA tenderness (L), CVA tenderness (R) - Neurological Exam Neurological exam: Present: alert, oriented X3, no focal deficits, strengths equal and symetr throughout. Absent: facial droop, speech deficit - Skin Skin exam: Absent: rash Internal Medicine: Result - Labs CBC & Chem 7: 01/28/17 16:44 01/27/17 04:13 - ABG Interpretation ABG results: PT/INR, D-dimer PT 16.8 Seconds (9.4-12.1) H 01/23/17 09:13 - VTE Reasons for not Prescribing Prophylaxis: Not indicated-Anticoagulated or INR therapeutic Documentation of Mechanical Device: Intermittent pneumatic compression device Consult Discharge Plan - Plan Referrals: Luz Camacho MD [Primary Care Provider] -
[2017-01-28 16:50] LABS: Basophils % 0.5 %; Hemoglobin 11.7 g/dL (12.9-16.9); Immature Granulocytes % 0.2 % (0-4); Lymphocytes # 1.1 K/mcL (0.6-4.6); Lymphocytes % 16.5 %; Mean Corpuscular HGB Conc 32.5 g/dL (31.6-35.5); Mean Corpuscular Hemoglobin 29.9 pg (28.0-33.3); Mean Corpuscular Volume 92.1 fL (83.0-100.0); Mean Platelet Volume 9.7 fL (9.4-12.4); Monocytes # 0.6 K/mcL (0.0-1.3); Monocytes % 8.5 %; Neutrophils # 4.8 K/mcL (1.6-8.9); Platelet Count 167 K/mcL (140-400); Red Blood Count 3.91 M/mcL (4.19-5.50); Red Cell Distribution Width 12.6 % (11.5-14.5); Segmented Neutrophils % 74.3 %
[2017-01-28 17:01] LABS: BUN/Creatinine Ratio 20 (6-26); Blood Urea Nitrogen 20 mg/dL (8-26); Calcium 8.8 mg/dL (8.6-10.8); Carbon Dioxide 32 mEq/L (19-29); Chloride 103 mEq/L (98-109); Glucose 105 mg/dL (70-99); Osmolality,Calculated 289 (280-300); Potassium 4.4 mEq/L (3.5-4.5); Sodium 138 mEq/L (136-145); eGFR For African Americans > 60 (> 60); eGFR For Non-African Americans > 60 (> 60)
[2017-01-28] MEDS ORDERED: Ertapenem 1,000 MG in 0.9 % Sodium Chloride Mini Bag 100 ML IVPB SCH (19:00)
[2017-01-28] MEDS: Ertapenem 1,000 MG in 0.9 % Sodium Chloride Mini Bag 100 ML IVPB SCH (21:12)
[2017-01-29] MEDS: Ipratropium/Albuterol Neb 3 ML IH SCH ×4 (03:52→22:37)
[2017-01-29] MEDS: Pantoprazole 40 MG VIAL IVP SCH (09:45)
[2017-01-29] MEDS: Folic Acid 1 MG TABLET PO SCH (09:45)
[2017-01-29] MEDS: Ascorbic Acid 500 MG TABLET PO SCH (09:45)
[2017-01-29] MEDS: Cyanocobalamin (B-12) 1,000 MCG TABLET PO SCH (09:45)
[2017-01-29] MEDS: Diltiazem CD (24hr) 240 MG CAPSULE PO SCH (09:45)
--- NOTE | 2017-01-29 16:22 | Internal Med Progress Note ---
Date of Encounter: 01/29/17 Time of Encounter: 16:20 - Assessment and plan (1) Multiple fractures of ribs, left side, initial encounter for closed fracture Current Visit: Yes Status: Acute Assessment and plan: Multiple left anterior rib fracture status post fall at home. 01/23: CT chest showed acute nondisplaced left anterolateral fifth through eighth rib fractures with no significant chest wall hematoma, mild as just a lingular subpleural subsegmental opacity. continue pain meds. sit in chair tid. awaiting placement in rehab center. Qualifiers: Encounter type: initial encounter Qualified Code(s): S22.42XA - Multiple fractures of ribs, left side, initial encounter for closed fracture (2) Atrial fibrillation Current Visit: No Status: Chronic Assessment and plan: Chronic. Continue Cardizem. Rate controlled. Qualifiers: Atrial fibrillation type: chronic Qualified Code(s): I48.2 - Chronic atrial fibrillation (3) Anemia Current Visit: No Status: Acute Assessment and plan: chronic anemia. Patient on pradaxa and reports an episode of coffee-ground emesis at home. B12 is elevated, folate is within normal limits. holding pradaxa. hgb is 11. hemodynamically stable. close monitor. Qualifiers: Anemia type: unspecified type Qualified Code(s): D64.9 - Anemia, unspecified (4) UTI (urinary tract infection) Current Visit: No Status: Acute Assessment and plan: ESBL ecoli UTI. continue ertapenem for total of 5 days Qualifiers: Urinary tract infection type: acute cystitis Hematuria presence: without hematuria Qualified Code(s): N30.00 - Acute cystitis without hematuria (5) CAD (coronary artery disease) Current Visit: No Status: Chronic Qualifiers: Coronary Disease-Associated Artery/Lesion type: [place] artery [place] vs. transplanted heart: [place] heart Associated angina: without angina Qualified Code(s): I25.10 - Atherosclerotic heart disease of [place] coronary artery without angina pectoris (6) COPD (chronic obstructive pulmonary disease) Current Visit: No Status: Chronic Assessment and plan: No acute exacerbation. Continue nebs and Guaifenesin. Patient is doing incentive spirometry for rib fractures. Qualifiers: COPD type: unspecified COPD Qualified Code(s): J44.9 - Chronic obstructive pulmonary disease, unspecified (7) Hypertension Current Visit: No Status: Chronic Assessment and plan: Chronic. Continue home medications. Well-controlled and inpatient setting. When necessary medication for hypertension. Qualifiers: Hypertension type: essential hypertension Qualified Code(s): I10 - Essential (primary) hypertension (8) Obesity (BMI 30.0-34.9) Current Visit: No Status: Chronic Assessment and plan: Chronic. Lifestyle and diet modifications - Subjective Interval history: patient reports moderate pain in left ribs. no other issues. - Constitutional Vitals: Temp Pulse Resp BP Pulse Ox 98.4 F 52 15 100/63 96 01/29/17 15:12 01/29/17 15:12 01/29/17 16:17 01/29/17 15:12 01/29/17 16:17 General appearance: Present: cooperative, A&O X 3, pleasant, no acute distress, answers questions appropriately - Neck Neck exam general surgery: Present: supple, trachea midline - Respiratory Respiratory exam: Present: CTAB - Cardiovascular Cardiovascular exam: Present: RRR - GI/Abdominal GI/Abdominal exam: Present: normal bowel sounds, soft. Absent: distended, tenderness - Extremities Exam Extremities exam: Absent: pedal edema - Back Exam Back exam: Absent: CVA tenderness (L), CVA tenderness (R) - Neurological Exam Neurological exam: Present: alert, oriented X3. Absent: facial droop, speech deficit - Skin Skin exam: Absent: rash Internal Medicine: Result - Labs CBC & Chem 7: 01/28/17 16:44 01/28/17 16:44 Labs: Short CBC 01/28/17 Range/Units 16:44 WBC 6.5 (4.3-11.1) K/mcL Hgb 11.7 L (12.9-16.9) g/dL Hct 36.0 L (37.5-50.1) % Plt Count 167 (140-400) K/mcL Neutrophils # 4.8 (1.6-8.9) K/mcL BMP 01/28/17 16:44 Sodium 138 Potassium 4.4 Chloride 103 Carbon Dioxide 32 H BUN 20 Creatinine 1.00 Glucose 105 H Calcium 8.8 - ABG Interpretation ABG results: PT/INR, D-dimer PT 16.8 Seconds (9.4-12.1) H 01/23/17 09:13 - VTE Reasons for not Prescribing Prophylaxis: Not indicated-Anticoagulated or INR therapeutic Documentation of Mechanical Device: Intermittent pneumatic compression device Consult Discharge Plan - Plan Referrals: Luz Camacho MD [Primary Care Provider] -
[2017-01-29] MEDS: Ertapenem 1,000 MG in 0.9 % Sodium Chloride Mini Bag 100 ML IVPB SCH (19:54)
[2017-01-30] MEDS: Ipratropium/Albuterol Neb 3 ML IH SCH ×4 (04:13→22:16)
[2017-01-30] MEDS: Folic Acid 1 MG TABLET PO SCH (11:15)
[2017-01-30] MEDS: Ascorbic Acid 500 MG TABLET PO SCH (11:15)
[2017-01-30] MEDS: Pantoprazole 40 MG VIAL IVP SCH (11:16)
[2017-01-30] MEDS: Diltiazem CD (24hr) 240 MG CAPSULE PO SCH (11:16)
[2017-01-30] MEDS: Cyanocobalamin (B-12) 1,000 MCG TABLET PO SCH (11:16)
--- NOTE | 2017-01-30 13:04 | Internal Med Progress Note ---
Date of Encounter: 01/30/17 Time of Encounter: 13:02 - Assessment and plan (1) Multiple fractures of ribs, left side, initial encounter for closed fracture Current Visit: Yes Status: Acute Assessment and plan: Multiple left anterior rib fracture status post fall at home. 01/23: CT chest showed acute nondisplaced left anterolateral fifth through eighth rib fractures with no significant chest wall hematoma, mild as just a lingular subpleural subsegmental opacity. continue pain meds. sit in chair tid. awaiting placement in rehab center. Qualifiers: Encounter type: initial encounter Qualified Code(s): S22.42XA - Multiple fractures of ribs, left side, initial encounter for closed fracture (2) UTI (urinary tract infection) Current Visit: No Status: Acute Assessment and plan: ESBL ecoli UTI. continue ertapenem (last dose in 02/01) Qualifiers: Urinary tract infection type: acute cystitis Hematuria presence: without hematuria Qualified Code(s): N30.00 - Acute cystitis without hematuria (3) Atrial fibrillation Current Visit: No Status: Chronic Assessment and plan: Chronic. Continue Cardizem. Rate controlled. Qualifiers: Atrial fibrillation type: chronic Qualified Code(s): I48.2 - Chronic atrial fibrillation (4) Anemia Current Visit: No Status: Acute Assessment and plan: chronic anemia. Patient on pradaxa and reports an episode of coffee-ground emesis at home. B12 is elevated, folate is within normal limits. holding pradaxa. hgb is 11. hemodynamically stable. close monitor. Qualifiers: Anemia type: unspecified type Qualified Code(s): D64.9 - Anemia, unspecified (5) CAD (coronary artery disease) Current Visit: No Status: Chronic Qualifiers: Coronary Disease-Associated Artery/Lesion type: [place] artery [place] vs. transplanted heart: [place] heart Associated angina: without angina Qualified Code(s): I25.10 - Atherosclerotic heart disease of [place] coronary artery without angina pectoris (6) COPD (chronic obstructive pulmonary disease) Current Visit: No Status: Chronic Assessment and plan: No acute exacerbation. Continue nebs and Guaifenesin. Patient is doing incentive spirometry for rib fractures. Qualifiers: COPD type: unspecified COPD Qualified Code(s): J44.9 - Chronic obstructive pulmonary disease, unspecified (7) Hypertension Current Visit: No Status: Chronic Assessment and plan: Chronic. Continue home medications. Well-controlled and inpatient setting. When necessary medication for hypertension. Qualifiers: Hypertension type: essential hypertension Qualified Code(s): I10 - Essential (primary) hypertension (8) Obesity (BMI 30.0-34.9) Current Visit: No Status: Chronic Assessment and plan: Chronic. Lifestyle and diet modifications - Subjective Interval history: patient has no complains. - Constitutional Vitals: Temp Pulse Resp BP Pulse Ox 98.0 F 71 16 156/68 96 01/30/17 11:47 01/30/17 11:47 01/30/17 11:47 01/30/17 11:47 01/30/17 11:47 General appearance: Present: cooperative, A&O X 3, pleasant, no acute distress, answers questions appropriately - Neck Neck exam general surgery: Present: supple, trachea midline. Absent: lymphadenopathy - Respiratory Respiratory exam: Present: CTAB - Cardiovascular Cardiovascular exam: Present: RRR - GI/Abdominal GI/Abdominal exam: Present: normal bowel sounds, soft. Absent: distended, tenderness - Extremities Exam Extremities exam: Absent: pedal edema - Neurological Exam Neurological exam: Present: alert, oriented X3. Absent: facial droop, speech deficit - Skin Skin exam: Absent: rash Internal Medicine: Result - Labs CBC & Chem 7: 01/28/17 16:44 01/28/17 16:44 - ABG Interpretation ABG results: PT/INR, D-dimer PT 16.8 Seconds (9.4-12.1) H 01/23/17 09:13 - VTE Reasons for not Prescribing Prophylaxis: Not indicated-Anticoagulated or INR therapeutic Documentation of Mechanical Device: Intermittent pneumatic compression device Consult Discharge Plan - Plan Referrals: Luz Camacho MD [Primary Care Provider] -
[2017-01-30] MEDS: Ertapenem 1,000 MG in 0.9 % Sodium Chloride Mini Bag 100 ML IVPB SCH (20:38)
[2017-01-31] MEDS: Ipratropium/Albuterol Neb 3 ML IH SCH ×4 (04:31→21:47)
[2017-01-31] MEDS: Diltiazem CD (24hr) 240 MG CAPSULE PO SCH (08:39)
[2017-01-31] MEDS: Cyanocobalamin (B-12) 1,000 MCG TABLET PO SCH (08:39)
[2017-01-31] MEDS: Pantoprazole 40 MG VIAL IVP SCH (08:40)
[2017-01-31] MEDS: Folic Acid 1 MG TABLET PO SCH (08:40)
[2017-01-31] MEDS: Ascorbic Acid 500 MG TABLET PO SCH (08:47)
--- NOTE | 2017-01-31 16:53 | Internal Med Progress Note ---
Date of Encounter: 01/31/17 Time of Encounter: 12:30 - Assessment and plan (1) UTI due to extended-spectrum beta lactamase (ESBL) producing Escherichia coli Current Visit: No Status: Acute Assessment and plan: Urine culture revealing ESBL Escherichia coli with multiple resistances. Appropriately being treated with ertapenem, it appears as if he has received 5 doses to date. Recommendation is for 10-14 days treatment, will continue (2) Generalized weakness Current Visit: No Status: Acute Assessment and plan: Awaiting placement pending Medicaid application, could be up to another week. Patient is not safe to be discharged home in the meantime. (3) Urinary retention due to benign prostatic hyperplasia Current Visit: No Status: Chronic (4) Hypertension Current Visit: No Status: Chronic Assessment and plan: Controlled, we will continue to trend and adjust medications as indicated. Qualifiers: Hypertension type: essential hypertension Qualified Code(s): I10 - Essential (primary) hypertension (5) Depression with anxiety Current Visit: No Status: Chronic Assessment and plan: Patient was seen by psychiatry who cleared him for outpatient follow-up. Psychiatry feels that the patient does not meet criteria for medication management at this time. (6) COPD (chronic obstructive pulmonary disease) Current Visit: No Status: Chronic Assessment and plan: No acute exacerbation. Continue nebs and Guaifenesin. Patient is doing incentive spirometry for rib fractures. Qualifiers: COPD type: unspecified COPD Qualified Code(s): J44.9 - Chronic obstructive pulmonary disease, unspecified (7) Sleep apnea in adult Current Visit: No Status: Chronic (8) CAD (coronary artery disease) Current Visit: No Status: Chronic Qualifiers: Coronary Disease-Associated Artery/Lesion type: [place] artery [place] vs. transplanted heart: [place] heart Associated angina: without angina Qualified Code(s): I25.10 - Atherosclerotic heart disease of [place] coronary artery without angina pectoris (9) Anemia Current Visit: No Status: Chronic Assessment and plan: chronic anemia-stable. Patient on pradaxa and reports an episode of coffee- ground emesis at home so this medication has been held. He remains hemodynamically stable. B12 is elevated, folate is within normal limits. Qualifiers: Anemia type: unspecified type Qualified Code(s): D64.9 - Anemia, unspecified (10) History of CVA with residual deficit Current Visit: No Status: Chronic Assessment and plan: No new focal neurological deficits (11) Multiple fractures of ribs, left side, initial encounter for closed fracture Current Visit: Yes Status: Acute Assessment and plan: Multiple left anterior rib fracture status post fall at home. 01/23: CT chest showed acute nondisplaced left anterolateral fifth through eighth rib fractures with no significant chest wall hematoma, mild as just a lingular subpleural subsegmental opacity. continue pain meds. sit in chair tid. awaiting placement in rehab center- awaiting Medicaid application. Qualifiers: Encounter type: initial encounter Qualified Code(s): S22.42XA - Multiple fractures of ribs, left side, initial encounter for closed fracture (12) A-fib Current Visit: Yes Status: Chronic Assessment and plan: Rate controlled, holding anticoagulation therapy at this time Qualifiers: Atrial fibrillation type: chronic Qualified Code(s): I48.2 - Chronic atrial fibrillation (13) Coffee ground emesis Current Visit: Yes Status: Resolved Assessment and plan: Patient denies since prior to arrival. He remains hemodynamically stable with no further bouts of emesis. Started on iron supplementation for his chronic iron deficiency anemia. (14) Anticoagulant long-term use Current Visit: Yes Status: Chronic Assessment and plan: Patient is on Pradaxa for chronic A. fib. Has been held. (15) DVT prophylaxis Current Visit: Yes Status: Acute Assessment and plan: Patient was on Pradaxa, is being held due to anemia, no other pharmacologic intervention at this time. SCDs ordered. (16) Obesity (BMI 30.0-34.9) Current Visit: No Status: Chronic Assessment and plan: Chronic. Lifestyle and diet modifications - Subjective Interval history: Patient seen and examined. On examination, patient resting supine in bed watching television. He denies pain or shortness of breath at this time. He denies any concerns. - Constitutional Vitals: Temp Pulse Resp BP Pulse Ox 97.8 F 74 18 126/81 97 01/31/17 15:12 01/31/17 15:12 01/31/17 16:13 01/31/17 15:12 01/31/17 16:13 General appearance: Present: cooperative, A&O X 3, pleasant, no acute distress, answers questions appropriately - Head Head exam: Present: atraumatic, normocephalic - Eye Eye exam: Present: PERRL, conjuntiva pink, sclera anicteric Pupils: Present: PERRL - Neck Neck exam general surgery: Present: supple, trachea midline. Absent: lymphadenopathy - Respiratory Respiratory exam: Present: decreased breath sounds. Absent: accessory muscle use, rales, respiratory distress, rhonchi, wheezes - Cardiovascular Cardiovascular exam: Present: RRR, +S1, +S2. Absent: diastolic murmur, gallop, rubs, systolic murmur - GI/Abdominal GI/Abdominal exam: Present: normal bowel sounds, soft, no peritoneal signs. Absent: distended, tenderness - Extremities Exam Extremities exam: Present: warm, radial pulses palpable and symetrical. Absent : calf tenderness, cyanotic, pedal edema - Neurological Exam Neurological exam: Present: alert, CN II-XII intact, oriented X3, no focal deficits, facial droop. Absent: strengths equal and symetr throughout, pronater drift, speech deficit - Skin Skin exam: Present: dry, intact, pallor, warm Internal Medicine: Result - Labs CBC & Chem 7: 01/28/17 16:44 01/28/17 16:44 - ABG Interpretation ABG results: PT/INR, D-dimer PT 16.8 Seconds (9.4-12.1) H 01/23/17 09:13 - VTE Reasons for not Prescribing Prophylaxis: Not indicated-Anticoagulated or INR therapeutic Documentation of Mechanical Device: Intermittent pneumatic compression device Consult Discharge Plan - Plan Referrals: Luz Camacho MD [Primary Care Provider] -
[2017-01-31] MEDS: Ertapenem 1,000 MG in 0.9 % Sodium Chloride Mini Bag 100 ML IVPB SCH (20:08)
[2017-02-01] MEDS: Ipratropium/Albuterol Neb 3 ML IH SCH ×4 (03:50→23:27)
[2017-02-01] MEDS: Cyanocobalamin (B-12) 1,000 MCG TABLET PO SCH (09:18)
[2017-02-01] MEDS: Folic Acid 1 MG TABLET PO SCH (09:18)
[2017-02-01] MEDS: Ascorbic Acid 500 MG TABLET PO SCH (09:19)
[2017-02-01] MEDS: Pantoprazole 40 MG VIAL IVP SCH (09:19)
[2017-02-01] MEDS: Diltiazem CD (24hr) 240 MG CAPSULE PO SCH (09:19)
--- NOTE | 2017-02-01 12:18 | Internal Med Progress Note ---
Date of Encounter: 02/01/17 Time of Encounter: 09:00 - Assessment and plan (1) UTI due to extended-spectrum beta lactamase (ESBL) producing Escherichia coli Current Visit: No Status: Acute Assessment and plan: Urine culture revealing ESBL Escherichia coli with multiple resistances. Appropriately being treated with ertapenem, it appears as if he has received 6 doses to date. Recommendation is for 10-14 days treatment, will continue (2) Generalized weakness Current Visit: No Status: Acute Assessment and plan: Awaiting placement pending Medicaid application, could be up to another week or more. Patient is not safe to be discharged home in the meantime. (3) Urinary retention due to benign prostatic hyperplasia Current Visit: No Status: Chronic (4) Hypertension Current Visit: No Status: Chronic Assessment and plan: Controlled, we will continue to trend and adjust medications as indicated. Qualifiers: Hypertension type: essential hypertension Qualified Code(s): I10 - Essential (primary) hypertension (5) Depression with anxiety Current Visit: No Status: Chronic Assessment and plan: Patient was seen by psychiatry who cleared him for outpatient follow-up. Psychiatry feels that the patient does not meet criteria for medication management at this time. Patient denies suicidal or homicidal ideations at this time. (6) COPD (chronic obstructive pulmonary disease) Current Visit: No Status: Chronic Assessment and plan: No acute exacerbation. Continue nebs and Guaifenesin. Patient is doing incentive spirometry for rib fractures. Qualifiers: COPD type: unspecified COPD Qualified Code(s): J44.9 - Chronic obstructive pulmonary disease, unspecified (7) Sleep apnea in adult Current Visit: No Status: Chronic (8) CAD (coronary artery disease) Current Visit: No Status: Chronic Qualifiers: Coronary Disease-Associated Artery/Lesion type: [place] artery [place] vs. transplanted heart: [place] heart Associated angina: without angina Qualified Code(s): I25.10 - Atherosclerotic heart disease of [place] coronary artery without angina pectoris (9) Anemia Current Visit: No Status: Chronic Assessment and plan: chronic anemia-stable. Patient on pradaxa and reports an episode of coffee- ground emesis at home so this medication has been held. He remains hemodynamically stable. B12 is elevated, folate is within normal limits. Qualifiers: Anemia type: unspecified type Qualified Code(s): D64.9 - Anemia, unspecified (10) History of CVA with residual deficit Current Visit: No Status: Chronic Assessment and plan: No new focal neurological deficits (11) Multiple fractures of ribs, left side, initial encounter for closed fracture Current Visit: Yes Status: Acute Assessment and plan: Multiple left anterior rib fracture status post fall at home. 01/23: CT chest showed acute nondisplaced left anterolateral fifth through eighth rib fractures with no significant chest wall hematoma, mild as just a lingular subpleural subsegmental opacity. continue pain meds. sit in chair tid. awaiting placement in rehab center- awaiting Medicaid application. Qualifiers: Encounter type: initial encounter Qualified Code(s): S22.42XA - Multiple fractures of ribs, left side, initial encounter for closed fracture (12) A-fib Current Visit: Yes Status: Chronic Assessment and plan: Rate controlled, holding anticoagulation therapy at this time Qualifiers: Atrial fibrillation type: chronic Qualified Code(s): I48.2 - Chronic atrial fibrillation (13) Coffee ground emesis Current Visit: Yes Status: Resolved Assessment and plan: Patient denies since prior to arrival. He remains hemodynamically stable with no further bouts of emesis. Started on iron supplementation for his chronic iron deficiency anemia. (14) Anticoagulant long-term use Current Visit: Yes Status: Chronic Assessment and plan: Patient is on Pradaxa for chronic A. fib. Has been held. (15) DVT prophylaxis Current Visit: Yes Status: Acute Assessment and plan: Patient was on Pradaxa, is being held due to anemia, no other pharmacologic intervention at this time. SCDs ordered. (16) Obesity (BMI 30.0-34.9) Current Visit: No Status: Chronic Assessment and plan: Chronic. Lifestyle and diet modifications - Subjective Interval history: Patient seen and examined. On examination, patient resting supine in bed watching television. He denies pain or shortness of breath at this time. He denies any concerns. He did state that his daughter is stating that she may prefer for him to go to another location and he referred me to his daughter for further information. - Constitutional Vitals: Temp Pulse Resp BP Pulse Ox 98.1 F 70 18 117/68 97 02/01/17 11:25 02/01/17 11:25 02/01/17 11:25 02/01/17 11:25 02/01/17 11:25 General appearance: Present: cooperative, A&O X 3, pleasant, no acute distress, answers questions appropriately - Head Head exam: Present: atraumatic, normocephalic - Eye Eye exam: Present: PERRL, conjuntiva pink, sclera anicteric. Absent: normal appearance (chronic ptosis right eye) Pupils: Present: PERRL - Neck Neck exam general surgery: Present: supple, trachea midline. Absent: lymphadenopathy - Respiratory Respiratory exam: Present: decreased breath sounds. Absent: accessory muscle use, rales, respiratory distress, rhonchi, wheezes - Cardiovascular Cardiovascular exam: Present: RRR, +S1, +S2. Absent: diastolic murmur, gallop, rubs, systolic murmur - GI/Abdominal GI/Abdominal exam: Present: normal bowel sounds, soft, no peritoneal signs. Absent: distended, tenderness - Extremities Exam Extremities exam: Present: warm, radial pulses palpable and symetrical. Absent : calf tenderness, cyanotic, pedal edema - Neurological Exam Neurological exam: Present: alert, CN II-XII intact, oriented X3, no focal deficits. Absent: strengths equal and symetr throughout (baseline L sided weakness), pronater drift, facial droop, speech deficit - Skin Skin exam: Present: dry, intact, pallor, warm Internal Medicine: Result - Labs CBC & Chem 7: 01/28/17 16:44 01/28/17 16:44 - ABG Interpretation ABG results: PT/INR, D-dimer PT 16.8 Seconds (9.4-12.1) H 01/23/17 09:13 - VTE Reasons for not Prescribing Prophylaxis: Not indicated-Anticoagulated or INR therapeutic Documentation of Mechanical Device: Intermittent pneumatic compression device Consult Discharge Plan - Plan Referrals: Luz Camacho MD [Primary Care Provider] -
[2017-02-01] MEDS: Ertapenem 1,000 MG in 0.9 % Sodium Chloride Mini Bag 100 ML IVPB SCH (21:35)
[2017-02-02] MEDS: Ipratropium/Albuterol Neb 3 ML IH SCH ×4 (05:20→22:40)
[2017-02-02] MEDS: Cyanocobalamin (B-12) 1,000 MCG TABLET PO SCH (08:11)
[2017-02-02] MEDS: Folic Acid 1 MG TABLET PO SCH (08:11)
[2017-02-02] MEDS: Ascorbic Acid 500 MG TABLET PO SCH (08:11)
[2017-02-02] MEDS: Diltiazem CD (24hr) 240 MG CAPSULE PO SCH (08:11)
[2017-02-02] MEDS: Pantoprazole 40 MG VIAL IVP SCH (08:13)
--- NOTE | 2017-02-02 12:20 | Internal Med Progress Note ---
Date of Encounter: 02/02/17 Time of Encounter: 09:30 - Assessment and plan (1) UTI due to extended-spectrum beta lactamase (ESBL) producing Escherichia coli Current Visit: No Status: Acute Assessment and plan: Urine culture revealing ESBL Escherichia coli with multiple resistances. Appropriately being treated with ertapenem, it appears as if he has received 7 doses to date. Recommendation is for 10-14 days treatment, will continue (2) Generalized weakness Current Visit: No Status: Acute Assessment and plan: Awaiting placement pending Medicaid application, could be up to another week or more. Patient is not safe to be discharged home in the meantime. Patient denies concerns or questions regarding plan of care. (3) Urinary retention due to benign prostatic hyperplasia Current Visit: No Status: Chronic (4) Hypertension Current Visit: No Status: Chronic Assessment and plan: Controlled, we will continue to trend and adjust medications as indicated. Qualifiers: Hypertension type: essential hypertension Qualified Code(s): I10 - Essential (primary) hypertension (5) Depression with anxiety Current Visit: No Status: Chronic Assessment and plan: Patient was seen by psychiatry who cleared him for outpatient follow-up. Psychiatry feels that the patient does not meet criteria for medication management at this time. Patient denies suicidal or homicidal ideations at this time. Mood and affect stable during my interactions with him. (6) COPD (chronic obstructive pulmonary disease) Current Visit: No Status: Chronic Assessment and plan: No acute exacerbation. Continue nebs and Guaifenesin. Patient is doing incentive spirometry for rib fractures. Qualifiers: COPD type: unspecified COPD Qualified Code(s): J44.9 - Chronic obstructive pulmonary disease, unspecified (7) Sleep apnea in adult Current Visit: No Status: Chronic (8) CAD (coronary artery disease) Current Visit: No Status: Chronic Qualifiers: Coronary Disease-Associated Artery/Lesion type: [place] artery [place] vs. transplanted heart: [place] heart Associated angina: without angina Qualified Code(s): I25.10 - Atherosclerotic heart disease of [place] coronary artery without angina pectoris (9) Anemia Current Visit: No Status: Chronic Assessment and plan: chronic anemia-stable. Patient on pradaxa and reported an episode of coffee- ground emesis prior to arrival, so his Pradaxa was held. He has not had any further bouts of vomiting and he remains hemodynamically stable- will resumed his home Pradaxa and this time and monitor. B12 is elevated, folate is within normal limits. Qualifiers: Anemia type: unspecified type Qualified Code(s): D64.9 - Anemia, unspecified (10) History of CVA with residual deficit Current Visit: No Status: Chronic Assessment and plan: No new focal neurological deficits (11) Multiple fractures of ribs, left side, initial encounter for closed fracture Current Visit: Yes Status: Acute Assessment and plan: Multiple left anterior rib fracture status post fall at home. 01/23: CT chest showed acute nondisplaced left anterolateral fifth through eighth rib fractures with no significant chest wall hematoma, mild as just a lingular subpleural subsegmental opacity. continue pain meds. sit in chair tid. awaiting placement in rehab center- awaiting Medicaid application. Qualifiers: Encounter type: initial encounter Qualified Code(s): S22.42XA - Multiple fractures of ribs, left side, initial encounter for closed fracture (12) A-fib Current Visit: Yes Status: Chronic Assessment and plan: Rate controlled, Pradaxa restarted today Qualifiers: Atrial fibrillation type: chronic Qualified Code(s): I48.2 - Chronic atrial fibrillation (13) Coffee ground emesis Current Visit: Yes Status: Resolved Assessment and plan: Patient denies since prior to arrival. He remains hemodynamically stable with no further bouts of emesis. Started on iron supplementation for his chronic iron deficiency anemia. (14) Anticoagulant long-term use Current Visit: Yes Status: Chronic Assessment and plan: Patient is on Pradaxa for chronic A. fib- resuming today; will monitor. (15) DVT prophylaxis Current Visit: Yes Status: Acute Assessment and plan: Pradaxa resumed. (16) Obesity (BMI 30.0-34.9) Current Visit: No Status: Chronic Assessment and plan: Chronic. Lifestyle and diet modifications - Subjective Interval history: Patient seen and examined. On examination, patient sitting upright in bed eating breakfast. He denies pain or shortness of breath. He denies concerns. He states that he had an episode of nausea the other morning after his am meds, but "it went away after they gave me a shot." Patient denies vomiting or recent nausea. He is endorsing a normal appetite. - Constitutional Vitals: Temp Pulse Resp BP Pulse Ox 98.0 F 66 17 105/69 96 02/02/17 11:10 02/02/17 11:10 02/02/17 11:10 02/02/17 11:10 02/02/17 11:10 General appearance: Present: cooperative, A&O X 3, pleasant, no acute distress, answers questions appropriately - Head Head exam: Present: atraumatic, normocephalic - Eye Eye exam: Present: PERRL, conjuntiva pink, sclera anicteric Pupils: Present: PERRL - Neck Neck exam general surgery: Present: supple, trachea midline. Absent: lymphadenopathy - Respiratory Respiratory exam: Present: decreased breath sounds. Absent: accessory muscle use, rales, respiratory distress, rhonchi, wheezes - Cardiovascular Cardiovascular exam: Present: RRR, +S1, +S2. Absent: diastolic murmur, gallop, rubs, systolic murmur - GI/Abdominal GI/Abdominal exam: Present: normal bowel sounds, soft, no peritoneal signs. Absent: distended, tenderness - Extremities Exam Extremities exam: Present: warm, radial pulses palpable and symetrical. Absent : calf tenderness, cyanotic, pedal edema - Neurological Exam Neurological exam: Present: alert, CN II-XII intact, oriented X3, no focal deficits. Absent: strengths equal and symetr throughout (chronic left sided weakness), pronater drift, facial droop, speech deficit - Skin Skin exam: Present: dry, intact, normal color, warm Internal Medicine: Result - Labs CBC & Chem 7: 01/28/17 16:44 01/28/17 16:44 - ABG Interpretation ABG results: PT/INR, D-dimer PT 16.8 Seconds (9.4-12.1) H 01/23/17 09:13 - VTE Reasons for not Prescribing Prophylaxis: Not indicated-Anticoagulated or INR therapeutic Documentation of Mechanical Device: Intermittent pneumatic compression device Consult Discharge Plan - Plan Referrals: Luz Camacho MD [Primary Care Provider] -
[2017-02-02] MEDS: *HR* Dabigatran 150 MG CAPSULE PO SCH ×2 (13:34→20:46)
[2017-02-02] MEDS: Ertapenem 1,000 MG in 0.9 % Sodium Chloride Mini Bag 100 ML IVPB SCH (20:48)
[2017-02-03] MEDS: Ipratropium/Albuterol Neb 3 ML IH SCH ×4 (03:29→21:31)
[2017-02-03 05:20] LABS: Basophils % 0.5 %; Hematocrit 36.9 % (37.5-50.1); Immature Granulocytes % 0.4 % (0-4); Lymphocytes % 23.8 %; Mean Corpuscular HGB Conc 32.5 g/dL (31.6-35.5); Mean Corpuscular Hemoglobin 29.9 pg (28.0-33.3); Mean Platelet Volume 10.2 fL (9.4-12.4); Monocytes # 0.6 K/mcL (0.0-1.3); Monocytes % 7.4 %; Neutrophils # 5.6 K/mcL (1.6-8.9); Platelet Count 183 K/mcL (140-400); Red Blood Count 4.01 M/mcL (4.19-5.50); Red Cell Distribution Width 12.8 % (11.5-14.5); Segmented Neutrophils % 67.9 %
[2017-02-03] MEDS: Cyanocobalamin (B-12) 1,000 MCG TABLET PO SCH (09:03)
[2017-02-03] MEDS: Ascorbic Acid 500 MG TABLET PO SCH (09:03)
[2017-02-03] MEDS: *HR* Dabigatran 150 MG CAPSULE PO SCH ×2 (09:04→20:48)
[2017-02-03] MEDS: Folic Acid 1 MG TABLET PO SCH (09:04)
[2017-02-03] MEDS: Diltiazem CD (24hr) 240 MG CAPSULE PO SCH (09:04)
--- NOTE | 2017-02-03 09:59 | Internal Med Progress Note ---
Date of Encounter: 02/03/17 Time of Encounter: 08:30 - Assessment and plan (1) UTI due to extended-spectrum beta lactamase (ESBL) producing Escherichia coli Current Visit: No Status: Acute Assessment and plan: Urine culture revealing ESBL Escherichia coli with multiple resistances. Appropriately being treated with ertapenem, it appears as if he has received 8 days of treatment to date. Recommendation is for 10-14 days treatment, will continue (2) Generalized weakness Current Visit: No Status: Acute Assessment and plan: Awaiting placement pending Medicaid application, could be up to another week or more. Patient is not safe to be discharged home in the meantime. Patient denies concerns or questions regarding plan of care. (3) Urinary retention due to benign prostatic hyperplasia Current Visit: No Status: Chronic (4) Hypertension Current Visit: No Status: Chronic Assessment and plan: Controlled, we will continue to trend and adjust medications as indicated. Qualifiers: Hypertension type: essential hypertension Qualified Code(s): I10 - Essential (primary) hypertension (5) Depression with anxiety Current Visit: No Status: Chronic Assessment and plan: Patient was seen by psychiatry who cleared him for outpatient follow-up. Psychiatry feels that the patient does not meet criteria for medication management at this time. Patient denies suicidal or homicidal ideations at this time. Mood and affect stable during my interactions with him. (6) COPD (chronic obstructive pulmonary disease) Current Visit: No Status: Chronic Assessment and plan: No acute exacerbation. Continue nebs and Guaifenesin. Patient is doing incentive spirometry for rib fractures. Qualifiers: COPD type: unspecified COPD Qualified Code(s): J44.9 - Chronic obstructive pulmonary disease, unspecified (7) Sleep apnea in adult Current Visit: No Status: Chronic (8) CAD (coronary artery disease) Current Visit: No Status: Chronic Qualifiers: Coronary Disease-Associated Artery/Lesion type: [place] artery [place] vs. transplanted heart: [place] heart Associated angina: without angina Qualified Code(s): I25.10 - Atherosclerotic heart disease of [place] coronary artery without angina pectoris (9) Anemia Current Visit: No Status: Chronic Assessment and plan: chronic anemia-stable. Patient on pradaxa and reported an episode of coffee- ground emesis prior to arrival, so his Pradaxa was held. He has not had any further bouts of vomiting and he remains hemodynamically stable- so his home Pradaxa was resumed. B12 is elevated, folate is within normal limits. Qualifiers: Anemia type: unspecified type Qualified Code(s): D64.9 - Anemia, unspecified (10) History of CVA with residual deficit Current Visit: No Status: Chronic Assessment and plan: No new focal neurological deficits. Chronic left sided weakness and right sided ptosis noted. (11) Multiple fractures of ribs, left side, initial encounter for closed fracture Current Visit: Yes Status: Acute Assessment and plan: Multiple left anterior rib fracture status post fall at home. Patient stating his pain has lessened and states that he is able to move his left arm better. He is tolerating incentive spirometry well. ITS Impressions Chest CT 01/23/17 08:49 IMPRESSION: 1. Acute nondisplaced left anterolateral 5th through 8th rib fractures with no significant chest wall hematoma. 2. Mild adjacent lingular subpleural subsegmental opacity which may represent atelectasis or possible mild contusion. No pneumothorax or effusion. 3. Cardiomegaly and aortic/coronary atherosclerosis. 4. Indeterminate borderline enlarged solitary left axillary lymph node. D/ / 01/23/2017 12:25:11 Moose Wright MD / [facility]est[facility] Interpreting Provider: Moose Wright MD Qualifiers: Encounter type: initial encounter Qualified Code(s): S22.42XA - Multiple fractures of ribs, left side, initial encounter for closed fracture (12) A-fib Current Visit: Yes Status: Chronic Assessment and plan: Rate controlled, Pradaxa restarted yesterday-no adverse reactions noted thus far Qualifiers: Atrial fibrillation type: chronic Qualified Code(s): I48.2 - Chronic atrial fibrillation (13) Coffee ground emesis Current Visit: Yes Status: Resolved Assessment and plan: Patient denies since prior to arrival. He remains hemodynamically stable with no further bouts of emesis. Started on iron supplementation for his chronic iron deficiency anemia. (14) Anticoagulant long-term use Current Visit: Yes Status: Chronic Assessment and plan: Patient is on Pradaxa for chronic A. fib-resumed yesterday; will monitor. (15) DVT prophylaxis Current Visit: Yes Status: Acute Assessment and plan: Pradaxa resumed. (16) Obesity (BMI 30.0-34.9) Current Visit: No Status: Chronic Assessment and plan: Chronic. Lifestyle and diet modifications - Subjective Interval history: Patient seen and examined. On examination, patient sitting upright in bed and had just finished breakfast. He states he is "feeling good" and denies concerns at this time. He states that his ribs are less sore and that he is able to move his left arm more. - Constitutional Vitals: Temp Pulse Resp BP Pulse Ox 97.9 F 68 17 100/72 93 02/03/17 06:57 02/03/17 06:57 02/03/17 06:57 02/03/17 06:57 02/03/17 06:57 General appearance: Present: cooperative, A&O X 3, pleasant, no acute distress, answers questions appropriately - Head Head exam: Present: atraumatic, normocephalic - Eye Eye exam: Present: PERRL, conjuntiva pink, sclera anicteric. Absent: normal appearance (chronic right ptosis s/p cva) Pupils: Present: PERRL - Neck Neck exam general surgery: Present: supple, trachea midline. Absent: lymphadenopathy - Respiratory Respiratory exam: Present: chest wall tenderness, decreased breath sounds. Absent: accessory muscle use, rales, respiratory distress, rhonchi, wheezes - Cardiovascular Cardiovascular exam: Present: RRR, +S1, +S2. Absent: diastolic murmur, gallop, rubs, systolic murmur - GI/Abdominal GI/Abdominal exam: Present: normal bowel sounds, soft, no peritoneal signs. Absent: distended, tenderness - Extremities Exam Extremities exam: Present: warm, radial pulses palpable and symetrical. Absent : calf tenderness, cyanotic, pedal edema - Neurological Exam Neurological exam: Present: alert, CN II-XII intact, oriented X3, no focal deficits. Absent: strengths equal and symetr throughout (chronic left sided weakness s/p cva), pronater drift, facial droop, speech deficit - Skin Skin exam: Present: dry, intact, normal color, warm Internal Medicine: Result - Labs CBC & Chem 7: 02/03/17 04:05 01/28/17 16:44 Labs: Short CBC 02/03/17 Range/Units 04:05 WBC 8.2 (4.3-11.1) K/mcL Hgb 12.0 L (12.9-16.9) g/dL Hct 36.9 L (37.5-50.1) % Plt Count 183 (140-400) K/mcL Neutrophils # 5.6 (1.6-8.9) K/mcL - ABG Interpretation ABG results: PT/INR, D-dimer PT 16.8 Seconds (9.4-12.1) H 01/23/17 09:13 - VTE Reasons for not Prescribing Prophylaxis: Not indicated-Anticoagulated or INR therapeutic Documentation of Mechanical Device: Intermittent pneumatic compression device Consult Discharge Plan - Plan Referrals: Luz Camacho MD [Primary Care Provider] -
[2017-02-03] MEDS: Ertapenem 1,000 MG in 0.9 % Sodium Chloride Mini Bag 100 ML IVPB SCH (20:51)
[2017-02-04] MEDS: Ipratropium/Albuterol Neb 3 ML IH SCH ×4 (04:08→22:36)
[2017-02-04] MEDS: Diltiazem CD (24hr) 240 MG CAPSULE PO SCH (08:13)
[2017-02-04] MEDS: *HR* Dabigatran 150 MG CAPSULE PO SCH ×2 (08:13→20:13)
[2017-02-04] MEDS: Folic Acid 1 MG TABLET PO SCH (08:13)
[2017-02-04] MEDS: Ascorbic Acid 500 MG TABLET PO SCH (08:13)
[2017-02-04] MEDS: Cyanocobalamin (B-12) 1,000 MCG TABLET PO SCH (08:13)
--- NOTE | 2017-02-04 17:59 | Internal Med Progress Note ---
Date of Encounter: 02/04/17 Time of Encounter: 09:30 - Assessment and plan (1) UTI due to extended-spectrum beta lactamase (ESBL) producing Escherichia coli Current Visit: No Status: Acute Assessment and plan: Urine culture revealing ESBL Escherichia coli with multiple resistances. Appropriately being treated with ertapenem, it appears as if he has received 9 days of treatment to date. Recommendation is for 10-14 days treatment, will continue (2) Generalized weakness Current Visit: No Status: Acute Assessment and plan: Awaiting placement pending Medicaid application, could be up to another week or more. Patient is not safe to be discharged home in the meantime. Patient denies concerns or questions regarding plan of care. (3) Urinary retention due to benign prostatic hyperplasia Current Visit: No Status: Chronic (4) Hypertension Current Visit: No Status: Chronic Assessment and plan: Controlled, we will continue to trend and adjust medications as indicated. Qualifiers: Hypertension type: essential hypertension Qualified Code(s): I10 - Essential (primary) hypertension (5) Depression with anxiety Current Visit: No Status: Chronic Assessment and plan: Patient was seen by psychiatry who cleared him for outpatient follow-up. Psychiatry feels that the patient does not meet criteria for medication management at this time. Patient denies suicidal or homicidal ideations at this time. Mood and affect stable during my interactions with him. (6) COPD (chronic obstructive pulmonary disease) Current Visit: No Status: Chronic Assessment and plan: No acute exacerbation. Continue nebs and Guaifenesin. Patient is doing incentive spirometry for rib fractures. Qualifiers: COPD type: unspecified COPD Qualified Code(s): J44.9 - Chronic obstructive pulmonary disease, unspecified (7) Sleep apnea in adult Current Visit: No Status: Chronic (8) CAD (coronary artery disease) Current Visit: No Status: Chronic Qualifiers: Coronary Disease-Associated Artery/Lesion type: [place] artery [place] vs. transplanted heart: [place] heart Associated angina: without angina Qualified Code(s): I25.10 - Atherosclerotic heart disease of [place] coronary artery without angina pectoris (9) Anemia Current Visit: No Status: Chronic Assessment and plan: chronic anemia-stable. Patient on pradaxa and reported an episode of coffee- ground emesis prior to arrival, so his Pradaxa was held. He has not had any further bouts of vomiting and he remains hemodynamically stable- so his home Pradaxa was resumed. B12 is elevated, folate is within normal limits. Qualifiers: Anemia type: unspecified type Qualified Code(s): D64.9 - Anemia, unspecified (10) History of CVA with residual deficit Current Visit: No Status: Chronic Assessment and plan: No new focal neurological deficits. Chronic left sided weakness and right sided ptosis noted. (11) Multiple fractures of ribs, left side, initial encounter for closed fracture Current Visit: Yes Status: Acute Assessment and plan: Multiple left anterior rib fracture status post fall at home. Patient stating his pain has lessened and states that he is able to move his left arm better. He is tolerating incentive spirometry well. ITS Impressions Chest CT 01/23/17 08:49 IMPRESSION: 1. Acute nondisplaced left anterolateral 5th through 8th rib fractures with no significant chest wall hematoma. 2. Mild adjacent lingular subpleural subsegmental opacity which may represent atelectasis or possible mild contusion. No pneumothorax or effusion. 3. Cardiomegaly and aortic/coronary atherosclerosis. 4. Indeterminate borderline enlarged solitary left axillary lymph node. D/ / 01/23/2017 12:25:11 Moose Wright MD / celestina Interpreting Provider: Moose Wright MD Qualifiers: Encounter type: initial encounter Qualified Code(s): S22.42XA - Multiple fractures of ribs, left side, initial encounter for closed fracture (12) A-fib Current Visit: Yes Status: Chronic Assessment and plan: Rate controlled, Pradaxa restarted -no adverse reactions noted thus far Qualifiers: Atrial fibrillation type: chronic Qualified Code(s): I48.2 - Chronic atrial fibrillation (13) Coffee ground emesis Current Visit: Yes Status: Resolved Assessment and plan: Patient denies since prior to arrival. He remains hemodynamically stable with no further bouts of emesis. Started on iron supplementation for his chronic iron deficiency anemia. (14) Anticoagulant long-term use Current Visit: Yes Status: Chronic Assessment and plan: Patient is on Pradaxa for chronic A. fib-resumed; will monitor. (15) DVT prophylaxis Current Visit: Yes Status: Acute Assessment and plan: Pradaxa resumed. (16) Obesity (BMI 30.0-34.9) Current Visit: No Status: Chronic Assessment and plan: Chronic. Lifestyle and diet modifications - Subjective Interval history: Patient seen and examined. On examination, patient asleep with the blankets pulled over his head. He awakens easily to voice and denies pain or concerns at this time. He states he would like to be left alone so he can sleep. - Constitutional Vitals: Temp Pulse Resp BP Pulse Ox 98.6 F 74 16 104/67 97 02/04/17 16:30 02/04/17 16:30 02/04/17 16:30 02/04/17 16:30 02/04/17 16:30 General appearance: Present: cooperative, A&O X 3, pleasant, no acute distress, answers questions appropriately - Head Head exam: Present: atraumatic, normocephalic - Eye Eye exam: Present: PERRL, conjuntiva pink, sclera anicteric Pupils: Present: PERRL - Neck Neck exam general surgery: Present: supple, trachea midline. Absent: lymphadenopathy - Respiratory Respiratory exam: Present: chest wall tenderness, CTAB. Absent: accessory muscle use, rales, respiratory distress, rhonchi, wheezes - Cardiovascular Cardiovascular exam: Present: RRR, +S1, +S2. Absent: diastolic murmur, gallop, rubs, systolic murmur - GI/Abdominal GI/Abdominal exam: Present: distended, normal bowel sounds, soft, no peritoneal signs. Absent: tenderness - Extremities Exam Extremities exam: Present: warm, radial pulses palpable and symetrical. Absent : calf tenderness, cyanotic, pedal edema - Neurological Exam Neurological exam: Present: alert, CN II-XII intact, oriented X3, no focal deficits. Absent: strengths equal and symetr throughout, pronater drift, facial droop, speech deficit - Skin Skin exam: Present: dry, intact, pallor, warm Internal Medicine: Result - Labs CBC & Chem 7: 02/03/17 04:05 01/28/17 16:44 - ABG Interpretation ABG results: PT/INR, D-dimer PT 16.8 Seconds (9.4-12.1) H 01/23/17 09:13 - VTE Reasons for not Prescribing Prophylaxis: Not indicated-Anticoagulated or INR therapeutic Documentation of Mechanical Device: Intermittent pneumatic compression device Consult Discharge Plan - Plan Referrals: Luz Camacho MD [Primary Care Provider] -
[2017-02-04] MEDS: Ertapenem 1,000 MG in 0.9 % Sodium Chloride Mini Bag 100 ML IVPB SCH (20:11)
[2017-02-05] MEDS: Ipratropium/Albuterol Neb 3 ML IH SCH ×4 (04:29→22:00)
[2017-02-05] MEDS: Cyanocobalamin (B-12) 1,000 MCG TABLET PO SCH (09:39)
[2017-02-05] MEDS: *HR* Dabigatran 150 MG CAPSULE PO SCH ×2 (09:40→20:12)
[2017-02-05] MEDS: Ascorbic Acid 500 MG TABLET PO SCH (09:40)
[2017-02-05] MEDS: Folic Acid 1 MG TABLET PO SCH (09:40)
[2017-02-05] MEDS: Diltiazem CD (24hr) 240 MG CAPSULE PO SCH (09:40)
--- NOTE | 2017-02-05 13:04 | Internal Med Progress Note ---
Date of Encounter: 02/05/17 Time of Encounter: 11:00 - Assessment and plan (1) UTI due to extended-spectrum beta lactamase (ESBL) producing Escherichia coli Current Visit: Yes Status: Acute Assessment and plan: Urine culture revealing ESBL Escherichia coli with multiple resistances. Appropriately being treated with ertapenem, it appears as if he has received 10 days of treatment to date. Recommendation is for 10-14 days treatment, will continue Discontinue from a.m 02/06 (2) Urinary retention due to benign prostatic hyperplasia Current Visit: Yes Status: Chronic Assessment and plan: Chronic, stable (3) Hypertension Current Visit: Yes Status: Chronic Assessment and plan: Controlled, we will continue to trend and adjust medications as indicated. Qualifiers: Hypertension type: essential hypertension Qualified Code(s): I10 - Essential (primary) hypertension (4) Depression with anxiety Current Visit: Yes Status: Chronic Assessment and plan: Patient was seen by psychiatry who cleared him for outpatient follow-up. Psychiatry feels that the patient does not meet criteria for medication management at this time. Patient denies suicidal or homicidal ideations at this time. Mood and affect stable during my interactions with him. (5) COPD (chronic obstructive pulmonary disease) Current Visit: Yes Status: Chronic Assessment and plan: No acute exacerbation. Continue nebs and Guaifenesin. Patient is doing incentive spirometry for rib fractures. Qualifiers: COPD type: unspecified COPD Qualified Code(s): J44.9 - Chronic obstructive pulmonary disease, unspecified (6) Sleep apnea in adult Current Visit: Yes Status: Chronic Assessment and plan: CPAP at bedtime (7) CAD (coronary artery disease) Current Visit: Yes Status: Chronic Assessment and plan: Chronic, stable, continue meds Qualifiers: Coronary Disease-Associated Artery/Lesion type: [place] artery [place] vs. transplanted heart: [place] heart Associated angina: without angina Qualified Code(s): I25.10 - Atherosclerotic heart disease of [place] coronary artery without angina pectoris (8) Atrial fibrillation Current Visit: Yes Status: Chronic Assessment and plan: Chronic. Continue Cardizem. Rate controlled. Qualifiers: Atrial fibrillation type: chronic Qualified Code(s): I48.2 - Chronic atrial fibrillation (9) Anemia Current Visit: Yes Status: Chronic Assessment and plan: chronic anemia-stable. Patient on pradaxa and reported an episode of coffee- ground emesis prior to arrival, so his Pradaxa was held. He has not had any further bouts of vomiting and he remains hemodynamically stable- so his home Pradaxa was resumed. B12 is elevated, folate is within normal limits. Qualifiers: Anemia type: unspecified type Qualified Code(s): D64.9 - Anemia, unspecified (10) Multiple fractures of ribs, left side, initial encounter for closed fracture Current Visit: Yes Status: Acute Assessment and plan: Multiple left anterior rib fracture status post fall at home. Patient stating his pain has lessened and states that he is able to move his left arm better. He is tolerating incentive spirometry well. 17 Qualifiers: Encounter type: initial encounter Qualified Code(s): S22.42XA - Multiple fractures of ribs, left side, initial encounter for closed fracture - Subjective Interval history: Seen and evaluated at bedside Denies new complauns he is being managed for ESBL UTI, Recurrent falls with multiple rib fractures, Hx of CVA with residual facial paralysis, ptosis and Rsided hemiparesis He is clinically stable and awaiting social clearance for discharge Today is Day 10 of [place] - Constitutional Vitals: Temp Pulse Resp BP Pulse Ox 97.7 F 76 15 97/62 94 02/05/17 11:14 02/05/17 11:14 02/05/17 11:14 02/05/17 11:14 02/05/17 11:14 General appearance: Present: cooperative, A&O X 3, pleasant, no acute distress, answers questions appropriately - Head Head exam: Present: atraumatic, normocephalic - Eye Additional comments: R ptosis - ENT ENT exam: Present: mucous membranes moist - Neck Neck exam general surgery: Present: supple, trachea midline. Absent: lymphadenopathy - Respiratory Respiratory exam: Present: CTAB. Absent: accessory muscle use, rales, rhonchi, wheezes - Cardiovascular Cardiovascular exam: Present: RRR, +S1, +S2. Absent: diastolic murmur, gallop, rubs, systolic murmur - GI/Abdominal GI/Abdominal exam: Present: normal bowel sounds, soft, no peritoneal signs. Absent: distended, tenderness - Extremities Exam Extremities exam: Present: warm, radial pulses palpable and symetrical. Absent : calf tenderness, cyanotic, pedal edema - Neurological Exam Neurological exam: Present: alert, CN II-XII intact, oriented X3, facial droop. Absent: strengths equal and symetr throughout, pronater drift, speech deficit Additional comments: R hemiparesis, power in RUE and RLE at least 3/5 - Skin Skin exam: Present: dry Internal Medicine: Result - Labs CBC & Chem 7: 02/03/17 04:05 01/28/17 16:44 - ABG Interpretation ABG results: PT/INR, D-dimer PT 16.8 Seconds (9.4-12.1) H 01/23/17 09:13 - VTE Reasons for not Prescribing Prophylaxis: Not indicated-Anticoagulated or INR therapeutic Documentation of Mechanical Device: Intermittent pneumatic compression device Consult Discharge Plan - Plan Referrals: Luz Camacho MD [Primary Care Provider] -
[2017-02-05] MEDS: Ertapenem 1,000 MG in 0.9 % Sodium Chloride Mini Bag 100 ML IVPB SCH (20:11)
[2017-02-06] MEDS: Ipratropium/Albuterol Neb 3 ML IH SCH ×4 (04:20→21:37)
[2017-02-06] MEDS: Diltiazem CD (24hr) 240 MG CAPSULE PO SCH (08:19)
[2017-02-06] MEDS: Folic Acid 1 MG TABLET PO SCH (08:19)
[2017-02-06] MEDS: Cyanocobalamin (B-12) 1,000 MCG TABLET PO SCH (08:19)
[2017-02-06] MEDS: *HR* Dabigatran 150 MG CAPSULE PO SCH ×2 (08:19→20:42)
[2017-02-06] MEDS: Ascorbic Acid 500 MG TABLET PO SCH (08:19)
--- NOTE | 2017-02-06 15:49 | Internal Med Progress Note ---
Date of Encounter: 02/06/17 Time of Encounter: 10:00 - Assessment and plan (1) Hypertension Current Visit: Yes Status: Chronic Assessment and plan: Controlled, we will continue to trend and adjust medications as indicated. Qualifiers: Hypertension type: essential hypertension Qualified Code(s): I10 - Essential (primary) hypertension (2) COPD (chronic obstructive pulmonary disease) Current Visit: Yes Status: Chronic Assessment and plan: No acute exacerbation. Continue nebs and Guaifenesin. Patient is doing incentive spirometry for rib fractures. Qualifiers: COPD type: chronic bronchitis Chronic bronchitis type: simple Qualified Code(s): J41.0 - Simple chronic bronchitis (3) Sleep apnea in adult Current Visit: Yes Status: Chronic Assessment and plan: CPAP at bedtime (4) CAD (coronary artery disease) Current Visit: Yes Status: Chronic Assessment and plan: Chronic, stable, continue meds Qualifiers: Coronary Disease-Associated Artery/Lesion type: [place] artery [place] vs. transplanted heart: [place] heart Associated angina: without angina Qualified Code(s): I25.10 - Atherosclerotic heart disease of [place] coronary artery without angina pectoris (5) Atrial fibrillation Current Visit: Yes Status: Chronic Assessment and plan: Chronic. Continue Cardizem. Rate controlled. On Pradaxa for anticoagulation Qualifiers: Atrial fibrillation type: chronic Qualified Code(s): I48.2 - Chronic atrial fibrillation (6) UTI due to extended-spectrum beta lactamase (ESBL) producing Escherichia coli Current Visit: Yes Status: Acute Assessment and plan: Urine culture revealing ESBL Escherichia coli with multiple resistances. Appropriately being treated with ertapenem, it appears as if he has received 10 days of treatment to date. Recommendation is for 10-14 days treatment. Discontinue today as have finished the treatment course. (7) Multiple fractures of ribs, left side, initial encounter for closed fracture Current Visit: Yes Status: Acute Assessment and plan: Multiple left anterior rib fracture status post fall at home. Patient stating his pain has lessened and states that he is able to move his left arm better. He is tolerating incentive spirometry well. Continue PTOT for fall. Qualifiers: Encounter type: initial encounter Qualified Code(s): S22.42XA - Multiple fractures of ribs, left side, initial encounter for closed fracture (8) Coffee ground emesis Current Visit: Yes Status: Resolved Assessment and plan: Patient denies since prior to arrival. He remains hemodynamically stable with no further bouts of emesis. Started on iron supplementation for his chronic iron deficiency anemia. Hemoglobin stable. Guaiac test negative. (9) Anticoagulant long-term use Current Visit: Yes Status: Chronic Assessment and plan: Patient is on Pradaxa for chronic A. fib-resumed; will monitor. (10) DVT prophylaxis Current Visit: Yes Status: Acute Assessment and plan: Pradaxa resumed. (11) History of CVA (cerebrovascular accident) Current Visit: Yes Status: Acute Assessment and plan: On pradaxa and atorvastatin. (12) Anemia Current Visit: Yes Status: Chronic Assessment and plan: chronic anemia-stable. Patient on pradaxa and reported an episode of coffee- ground emesis prior to arrival, so his Pradaxa was held. He has not had any further bouts of vomiting and he remains hemodynamically stable- so his home Pradaxa was resumed. B12 is elevated, folate is within normal limits. Qualifiers: Anemia type: unspecified type Qualified Code(s): D64.9 - Anemia, unspecified - Time Spent With Patient 25 - 35 minutes - Subjective Interval history: Patient is a 81-year-old male admitted for mechanical fall with rib fracture. Past medical history is significant for history of CVA, hypertension. Patient was seen and examined. Denies any pain or shortness of breath. Vital signs stable. On physical therapy. Waiting for placement. - Constitutional Vitals: Temp Pulse Resp BP Pulse Ox 97.6 F 54 15 122/71 95 02/06/17 15:31 02/06/17 15:31 02/06/17 15:31 02/06/17 15:31 02/06/17 15:31 General appearance: Present: cooperative, A&O X 3, pleasant, no acute distress, answers questions appropriately - Head Head exam: Present: atraumatic, normocephalic - Eye Eye exam: Present: PERRL, conjuntiva pink, sclera anicteric Pupils: Present: PERRL - Neck Neck exam general surgery: Present: supple, trachea midline. Absent: lymphadenopathy - Respiratory Respiratory exam: Present: CTAB. Absent: accessory muscle use, rales, rhonchi, wheezes - Cardiovascular Cardiovascular exam: Present: RRR, +S1, +S2. Absent: diastolic murmur, gallop, rubs, systolic murmur - GI/Abdominal GI/Abdominal exam: Present: normal bowel sounds, soft, no peritoneal signs. Absent: distended, tenderness - Extremities Exam Extremities exam: Present: warm, radial pulses palpable and symetrical. Absent : calf tenderness, cyanotic, pedal edema - Neurological Exam Neurological exam: Present: CN II-XII intact, oriented X3, no focal deficits. Absent: pronater drift, facial droop, speech deficit - Skin Skin exam: Present: dry, intact Internal Medicine: Result - Labs CBC & Chem 7: 02/03/17 04:05 01/28/17 16:44 - ABG Interpretation ABG results: PT/INR, D-dimer PT 16.8 Seconds (9.4-12.1) H 01/23/17 09:13 - VTE Reasons for not Prescribing Prophylaxis: Not indicated-Anticoagulated or INR therapeutic Documentation of Mechanical Device: Intermittent pneumatic compression device Consult Discharge Plan - Plan Referrals: Luz Camacho MD [Primary Care Provider] -
[2017-02-07] MEDS: Ipratropium/Albuterol Neb 3 ML IH SCH ×4 (03:41→21:13)
[2017-02-07] MEDS: *HR* Dabigatran 150 MG CAPSULE PO SCH ×2 (08:20→22:17)
[2017-02-07] MEDS: Folic Acid 1 MG TABLET PO SCH (08:20)
[2017-02-07] MEDS: Ascorbic Acid 500 MG TABLET PO SCH (08:20)
[2017-02-07] MEDS: Cyanocobalamin (B-12) 1,000 MCG TABLET PO SCH (08:21)
--- NOTE | 2017-02-07 08:59 | Internal Med Progress Note ---
<Oli Mcintyre - Last Filed: 02/07/17 10:05> Date of Encounter: 02/07/17 Time of Encounter: 08:59 - Assessment and plan (1) Hypertension Current Visit: Yes Status: Chronic Assessment and plan: - well controlled, Continue current regimen 02/06: Controlled, we will continue to trend and adjust medications as indicated. Qualifiers: Hypertension type: essential hypertension Qualified Code(s): I10 - Essential (primary) hypertension (2) COPD (chronic obstructive pulmonary disease) Current Visit: Yes Status: Chronic Assessment and plan: - continue current regimen. 02/06: No acute exacerbation. Continue nebs and Guaifenesin. Patient is doing incentive spirometry for rib fractures. Qualifiers: COPD type: chronic bronchitis Chronic bronchitis type: simple Qualified Code(s): J41.0 - Simple chronic bronchitis (3) Sleep apnea in adult Current Visit: Yes Status: Chronic Assessment and plan: -continue CPAP 02/06: CPAP at bedtime (4) CAD (coronary artery disease) Current Visit: Yes Status: Chronic Assessment and plan: - continue current meds. 02/06: Chronic, stable, continue meds Qualifiers: Coronary Disease-Associated Artery/Lesion type: [place] artery [place] vs. transplanted heart: [place] heart Associated angina: without angina Qualified Code(s): I25.10 - Atherosclerotic heart disease of [place] coronary artery without angina pectoris (5) Atrial fibrillation Current Visit: Yes Status: Chronic Assessment and plan: -continue current meds 02/06: Chronic. Continue Cardizem. Rate controlled. On Pradaxa for anticoagulation Qualifiers: Atrial fibrillation type: chronic Qualified Code(s): I48.2 - Chronic atrial fibrillation (6) Anemia Current Visit: Yes Status: Chronic Assessment and plan: - likely chronic iron deficiency, continue iron supplement. - hgb stable 02/06: chronic anemia-stable. Patient on pradaxa and reported an episode of coffee- ground emesis prior to arrival, so his Pradaxa was held. He has not had any further bouts of vomiting and he remains hemodynamically stable- so his home Pradaxa was resumed. B12 is elevated, folate is within normal limits. Qualifiers: Anemia type: unspecified type Qualified Code(s): D64.9 - Anemia, unspecified (7) UTI due to extended-spectrum beta lactamase (ESBL) producing Escherichia coli Current Visit: Yes Status: Acute Assessment and plan: - Txt course finished. 02/06: Urine culture revealing ESBL Escherichia coli with multiple resistances. Appropriately being treated with ertapenem, it appears as if he has received 10 days of treatment to date. Recommendation is for 10-14 days treatment. Discontinue today as have finished the treatment course. (8) Multiple fractures of ribs, left side, initial encounter for closed fracture Current Visit: Yes Status: Acute Assessment and plan: - patient reports pain improved. continue current management. 02/06: Multiple left anterior rib fracture status post fall at home. Patient stating his pain has lessened and states that he is able to move his left arm better. He is tolerating incentive spirometry well. Continue PTOT for fall. Qualifiers: Encounter type: initial encounter Qualified Code(s): S22.42XA - Multiple fractures of ribs, left side, initial encounter for closed fracture (9) Coffee ground emesis Current Visit: Yes Status: Resolved Assessment and plan: - continue iron. No emesis since arrival. hgb stable. 02/06: Patient denies since prior to arrival. He remains hemodynamically stable with no further bouts of emesis. Started on iron supplementation for his chronic iron deficiency anemia. Hemoglobin stable. Guaiac test negative. (10) Anticoagulant long-term use Current Visit: Yes Status: Chronic Assessment and plan: - continue pradaxa for afib 02/06: Patient is on Pradaxa for chronic A. fib-resumed; will monitor. (11) History of CVA (cerebrovascular accident) Current Visit: Yes Status: Acute Assessment and plan: - continue current meds. 02/06: On pradaxa and atorvastatin. (12) DVT prophylaxis Current Visit: No Status: Acute Assessment and plan: -continue Pradaxa - Subjective Interval history: No acute events overnight. Patient denies current medical complaints. Patient denies chest pain, abd pain, SOB, dysuria, vomiting, diarrhea. Patient is waiting for placement. - Constitutional Vitals: Temp Pulse Resp BP Pulse Ox 98.5 F 72 16 100/62 94 02/07/17 07:25 02/07/17 07:25 02/07/17 07:25 02/07/17 07:25 02/07/17 07:25 General appearance: Present: cooperative, A&O X 3, pleasant, no acute distress, answers questions appropriately - ENT ENT exam: Present: mucous membranes moist - Respiratory Respiratory exam: Present: CTAB - Cardiovascular Cardiovascular exam: Present: RRR, +S1, +S2 - GI/Abdominal GI/Abdominal exam: Present: normal bowel sounds, soft. Absent: tenderness - Extremities Exam Extremities exam: Absent: tenderness - Neurological Exam Neurological exam: Present: alert - Skin Skin exam: Present: warm Internal Medicine: Result - Labs CBC & Chem 7: 02/03/17 04:05 01/28/17 16:44 - ABG Interpretation ABG results: PT/INR, D-dimer PT 16.8 Seconds (9.4-12.1) H 01/23/17 09:13 - VTE Reasons for not Prescribing Prophylaxis: Not indicated-Anticoagulated or INR therapeutic Documentation of Mechanical Device: Intermittent pneumatic compression device Consult Discharge Plan - Plan Referrals: Luz Camacho MD [Primary Care Provider] - <Juan Javed - Last Filed: 02/07/17 23:20> Date of Encounter: 02/07/17 - Constitutional Vitals: Temp Pulse Resp BP Pulse Ox 98.2 F 87 16 99/65 95 02/07/17 22:51 02/07/17 22:51 02/07/17 22:51 02/07/17 22:51 02/07/17 22:51 Internal Medicine: Result - Labs CBC & Chem 7: 02/03/17 04:05 01/28/17 16:44 - ABG Interpretation ABG results: PT/INR, D-dimer PT 16.8 Seconds (9.4-12.1) H 01/23/17 09:13 - Attending Attestation I Dr. Paulie Javed reviewed the care and examined the patient. He has no skin sores. Awaiting on 10-14 days of IV antibiotic as well as placement for him.
[2017-02-07] MEDS: Diltiazem CD (24hr) 240 MG CAPSULE PO SCH (09:33)
[2017-02-08] MEDS: Ipratropium/Albuterol Neb 3 ML IH SCH ×4 (03:54→21:35)
[2017-02-08] MEDS: Diltiazem CD (24hr) 180 MG CAPSULE PO SCH (08:54)
[2017-02-08] MEDS: Ascorbic Acid 500 MG TABLET PO SCH (08:54)
[2017-02-08] MEDS: Folic Acid 1 MG TABLET PO SCH (08:54)
[2017-02-08] MEDS: Cyanocobalamin (B-12) 1,000 MCG TABLET PO SCH (08:54)
[2017-02-08] MEDS: *HR* Dabigatran 150 MG CAPSULE PO SCH ×2 (08:54→20:15)
--- NOTE | 2017-02-08 11:23 | Internal Med Progress Note ---
<Oli Mcintyre - Last Filed: 02/08/17 11:38> Date of Encounter: 02/08/17 Time of Encounter: 11:21 - Assessment and plan (1) Hypertension Current Visit: Yes Status: Chronic Assessment and plan: - well controlled, Continue current regimen Qualifiers: Hypertension type: essential hypertension Qualified Code(s): I10 - Essential (primary) hypertension (2) COPD (chronic obstructive pulmonary disease) Current Visit: Yes Status: Chronic Assessment and plan: - Continue nebs and Guaifenesin. Patient is doing incentive spirometry for rib fractures. Qualifiers: COPD type: chronic bronchitis Chronic bronchitis type: simple Qualified Code(s): J41.0 - Simple chronic bronchitis (3) Sleep apnea in adult Current Visit: Yes Status: Chronic Assessment and plan: -continue CPAP (4) CAD (coronary artery disease) Current Visit: Yes Status: Chronic Assessment and plan: Chronic, stable, continue meds Qualifiers: Coronary Disease-Associated Artery/Lesion type: [place] artery [place] vs. transplanted heart: [place] heart Associated angina: without angina Qualified Code(s): I25.10 - Atherosclerotic heart disease of [place] coronary artery without angina pectoris (5) Atrial fibrillation Current Visit: Yes Status: Chronic Assessment and plan: Chronic. Continue Cardizem. Rate controlled. On Pradaxa for anticoagulation Qualifiers: Atrial fibrillation type: chronic Qualified Code(s): I48.2 - Chronic atrial fibrillation (6) Anemia Current Visit: Yes Status: Chronic Assessment and plan: - chronic anemia-stable likely iron deficiency. Patient on pradaxa and reported an episode of coffee-ground emesis prior to arrival, so his Pradaxa was held. He has not had any further bouts of vomiting and he remains hemodynamically stable- so his home Pradaxa was resumed. B12 is elevated, folate is within normal limits. Qualifiers: Anemia type: unspecified type Qualified Code(s): D64.9 - Anemia, unspecified (7) UTI due to extended-spectrum beta lactamase (ESBL) producing Escherichia coli Current Visit: Yes Status: Acute Assessment and plan: - Txt course finished. Urine culture revealing ESBL Escherichia coli with multiple resistances. Appropriately treated with ertapenem, for 10 days. . (8) Multiple fractures of ribs, left side, initial encounter for closed fracture Current Visit: Yes Status: Acute Assessment and plan: - patient reports pain improved. continue current management. Multiple left anterior rib fracture status post fall at home. Continue PTOT for fall. Qualifiers: Encounter type: initial encounter Qualified Code(s): S22.42XA - Multiple fractures of ribs, left side, initial encounter for closed fracture (9) Coffee ground emesis Current Visit: Yes Status: Resolved Assessment and plan: - continue iron. No emesis since arrival. hgb stable. (10) Anticoagulant long-term use Current Visit: Yes Status: Chronic Assessment and plan: - continue pradaxa for afib continue to monitor. (11) History of CVA (cerebrovascular accident) Current Visit: Yes Status: Acute Assessment and plan: - continue pradaxa and atorvastatin. (12) DVT prophylaxis Current Visit: No Status: Acute Assessment and plan: -continue Pradaxa - Subjective Interval history: No acute events overnight. Patient reports working with PT today. Patient reprots being comfortable. Patient denies current medical complaints. Patient denies chest pain, abd pain, SOB, dysuria, vomiting, diarrhea. Patient is waiting for placement. - Constitutional Vitals: Temp Pulse Resp BP Pulse Ox 98.6 F 100 15 102/66 93 02/08/17 07:13 02/08/17 07:13 02/08/17 07:13 02/08/17 07:13 02/08/17 07:13 General appearance: Present: cooperative, A&O X 3, pleasant, no acute distress, answers questions appropriately - Eye Eye exam: Present: sclera anicteric - ENT ENT exam: Present: mucous membranes moist - Respiratory Respiratory exam: Present: CTAB - Cardiovascular Cardiovascular exam: Present: RRR, +S1, +S2 - GI/Abdominal GI/Abdominal exam: Present: normal bowel sounds, soft. Absent: tenderness - Extremities Exam Extremities exam: Absent: pedal edema - Neurological Exam Neurological exam: Present: alert - Psychiatric Psychiatric exam: Present: normal affect, normal mood - Skin Skin exam: Present: dry, warm Internal Medicine: Result - Labs CBC & Chem 7: 02/03/17 04:05 01/28/17 16:44 - ABG Interpretation ABG results: PT/INR, D-dimer PT 16.8 Seconds (9.4-12.1) H 01/23/17 09:13 - VTE Reasons for not Prescribing Prophylaxis: Not indicated-Anticoagulated or INR therapeutic Documentation of Mechanical Device: Intermittent pneumatic compression device Consult Discharge Plan - Plan Referrals: Luz Camacho MD [Primary Care Provider] - <Juan Javed - Last Filed: 02/08/17 18:12> Date of Encounter: 02/08/17 - Constitutional Vitals: Temp Pulse Resp BP Pulse Ox 97.8 F 83 16 117/77 94 02/08/17 14:38 02/08/17 14:38 02/08/17 15:58 02/08/17 14:38 02/08/17 15:58 Internal Medicine: Result - Labs CBC & Chem 7: 02/03/17 04:05 01/28/17 16:44 - ABG Interpretation ABG results: PT/INR, D-dimer PT 16.8 Seconds (9.4-12.1) H 01/23/17 09:13 - Attending Attestation I examined this patient and my medical decision-making was reviewed with the Resident Physician. I agree with the documented findings, disposition and treatment plan as described except to the extent set forth below.
[2017-02-09] MEDS: Ipratropium/Albuterol Neb 3 ML IH SCH ×4 (03:43→23:01)
[2017-02-09] MEDS: *HR* Dabigatran 150 MG CAPSULE PO SCH ×2 (08:39→21:11)
[2017-02-09] MEDS: Diltiazem CD (24hr) 180 MG CAPSULE PO SCH (08:39)
[2017-02-09] MEDS: Cyanocobalamin (B-12) 1,000 MCG TABLET PO SCH (08:39)
--- NOTE | 2017-02-09 10:16 | Internal Med Progress Note ---
<Oli Mcintyre - Last Filed: 02/09/17 14:58> Date of Encounter: 02/09/17 Time of Encounter: 10:14 - Assessment and plan (1) Multiple fractures of ribs, left side, initial encounter for closed fracture Current Visit: Yes Status: Acute Assessment and plan: - PT working with PT and OT for Fall. Patient reports pain is improved. Continue current management. Qualifiers: Encounter type: initial encounter Qualified Code(s): S22.42XA - Multiple fractures of ribs, left side, initial encounter for closed fracture (2) UTI due to extended-spectrum beta lactamase (ESBL) producing Escherichia coli Current Visit: Yes Status: Acute Assessment and plan: - Txt course finished. Still on contact precautions. Urine culture revealing ESBL Escherichia coli with multiple resistances. Appropriately treated with ertapenem, for 10 days. (3) Hypertension Current Visit: Yes Status: Chronic Assessment and plan: Well Controlled Continue current regimen Qualifiers: Hypertension type: essential hypertension Qualified Code(s): I10 - Essential (primary) hypertension (4) COPD (chronic obstructive pulmonary disease) Current Visit: Yes Status: Chronic Assessment and plan: Guaifenesin discontinued, continue nebs. Patient is doing incentive spirometry for rib fractures. Qualifiers: COPD type: chronic bronchitis Chronic bronchitis type: simple Qualified Code(s): J41.0 - Simple chronic bronchitis (5) Atrial fibrillation Current Visit: Yes Status: Chronic Assessment and plan: Chronic, stable. Continue Cardizem for rate controlled. continue Pradaxa for anticoagulation Qualifiers: Atrial fibrillation type: chronic Qualified Code(s): I48.2 - Chronic atrial fibrillation (6) Anemia Current Visit: Yes Status: Chronic Assessment and plan: - chronic anemia-stable likely iron deficiency. Pradaxa resumed. Qualifiers: Anemia type: unspecified type Qualified Code(s): D64.9 - Anemia, unspecified - Subjective Interval history: Patient denies current medical complaints. Patient denies chest pain, abd pain , SOB, dysuria, vomiting, diarrhea. Patient is waiting for placement. Patient requesting to be allowed to shave himself. - Constitutional Vitals: Temp Pulse Resp BP Pulse Ox 98.7 F 86 16 119/77 94 02/09/17 07:22 02/09/17 07:22 02/09/17 07:22 02/09/17 07:22 02/09/17 07:22 General appearance: Present: cooperative, A&O X 3, pleasant, no acute distress, answers questions appropriately - ENT ENT exam: Present: mucous membranes moist - Respiratory Respiratory exam: Present: CTAB. Absent: rales, rhonchi, wheezes, tachypnea - Cardiovascular Cardiovascular exam: Present: RRR, +S1, +S2 - GI/Abdominal GI/Abdominal exam: Present: normal bowel sounds, soft. Absent: tenderness - Extremities Exam Extremities exam: Absent: cyanotic, pedal edema - Neurological Exam Neurological exam: Present: alert. Absent: speech deficit - Psychiatric Psychiatric exam: Present: normal affect, normal mood - Skin Skin exam: Present: dry, intact Internal Medicine: Result - Labs CBC & Chem 7: 02/03/17 04:05 01/28/17 16:44 - ABG Interpretation ABG results: PT/INR, D-dimer PT 16.8 Seconds (9.4-12.1) H 01/23/17 09:13 - VTE Reasons for not Prescribing Prophylaxis: Not indicated-Anticoagulated or INR therapeutic Documentation of Mechanical Device: Intermittent pneumatic compression device Consult Discharge Plan - Plan Referrals: Luz Camacho MD [Primary Care Provider] - Prescriptions: Lidocaine Patch [Lidoderm 5% patch] 1 each TP DAILY #30 <Juan Javed - Last Filed: 02/09/17 20:18> Date of Encounter: 02/09/17 - Constitutional Vitals: Temp Pulse Resp BP Pulse Ox 97.7 F 81 14 154/54 95 02/09/17 18:35 02/09/17 18:35 02/09/17 18:35 02/09/17 19:36 02/09/17 18:35 Internal Medicine: Result - Labs CBC & Chem 7: 02/03/17 04:05 01/28/17 16:44 - ABG Interpretation ABG results: PT/INR, D-dimer PT 16.8 Seconds (9.4-12.1) H 01/23/17 09:13 - Attending Attestation I examined this patient and my medical decision-making was reviewed with the Resident Physician. I agree with the documented findings, disposition and treatment plan as described except to the extent set forth below.
--- NOTE | 2017-02-09 15:12 | Physician Discharge Referral ---
ExtendedCare Referral Info Provider in Charge after Transfer: PCP Institutional Level of Care: Skilled - Diagnosis (1) Multiple fractures of ribs, left side, initial encounter for closed fracture Priority: Primary Status: Acute (2) UTI due to extended-spectrum beta lactamase (ESBL) producing Escherichia coli Priority: Primary Status: Acute (3) Hypertension Priority: Secondary Status: Chronic (4) COPD (chronic obstructive pulmonary disease) Priority: Secondary Status: Chronic (5) Atrial fibrillation Priority: Secondary Status: Chronic (6) Anemia Priority: Secondary Status: Chronic (7) History of CVA (cerebrovascular accident) Priority: Secondary Status: Acute (8) A-fib Priority: Secondary Status: Chronic (9) CAD (coronary artery disease) Priority: Secondary Status: Chronic (10) Sleep apnea in adult Priority: Secondary Status: Chronic - Transfer Medications Prescriptions: Lidocaine Patch [Lidoderm 5% patch] 1 each TP DAILY #30 Home Medications: Oxybutynin [Ditropan] 5 mg PO 3-4XD 07/01/15 [History] Atorvastatin Calcium [Lipitor] 20 mg PO HS 11/20/15 [History] Tamsulosin [Flomax] 0.4 mg PO DAILY 11/20/15 [History] Docusate [Colace] 100 mg PO BID capsule 12/10/15 [Rx] MOM Conc [MILK OF MAGNESIA conc] 10 ml PO DAILY PRN #0 [id number] 12/10/15 [Rx] Dabigatran [Pradaxa] 150 mg PO BID 02/20/16 [History] Ferrous Sulfate 325 mg PO DAILY 365 Days 02/22/16 [Rx] Albuterol Sulfate [Proair Hfa] 2 puff IH Q4H PRN 01/23/17 [History] Ascorbate Calcium [Vitamin C] 500 mg PO DAILY 01/23/17 [History] Atorvastatin Calcium [Lipitor] 20 mg PO DAILY 01/23/17 [History] Cyanocobalamin (Vitamin B-12) [Vitamin B12] 1,000 mcg PO DAILY 01/23/17 [History ] Folic Acid 1 mg PO DAILY 01/23/17 [History] HYDROcodone/Acet 5/325 mg [[place] 5-325 mg] 1 tab PO Q6H PRN 01/23/17 [History] Lisinopril [Zestril] 10 mg PO DAILY 01/23/17 [History] Magnesium Hydroxide [Milk of Magnesia] 10 ml PO DAILY PRN 01/23/17 [History] Oxybutynin [Ditropan] 5 mg PO BID 01/23/17 [History] Tamsulosin [Flomax] 0.4 mg PO DAILY 01/23/17 [History] Diltiazem CD (24hr) [Cardizem CD] 180 mg PO DAILY 02/09/17 [Rx] Lidocaine Patch [Lidoderm 5% patch] 1 each TP DAILY #30 02/09/17 [Rx] Allergies/Adverse Reactions: Allergies Penicillins Allergy (Verified 12/24/15 16:23) Hives Sulfa (Sulfonamide Antibiotics) Allergy (Verified 12/24/15 16:23) Hives - Respiratory Orders Oxygen / L per min (2lpm) Smoking Cessation: Smoking cessation has been advised. For more information, call the [employer] Tobacco Quit Line at 9-280-XQXW-NOW. - Ancillary Orders May use pressure relief devices daily prn - Advance Directives Code Status: Full Code - Mobility Orders Ambulate (with assist) - Rehabiliation Orders Rehab Potential: Fair Rehab Orders: ROM Exercises, Evaluation for Physical Therapy, Evaluation for Occupational Therapy - Treatments Skin tear care topically daily PRN per policy - Diet Orders Cardiac House Supplement per Dietary: Ensure CERTIFICATION: I certify that the transfer of the above named patient to an Extended Care Facility is necessary for the continuing treatment of the diagnosis listed. The above information is true and accurate reflection of patient's current condition. Confidential - Redisclosure prohibited without a patient's written consent.
[2017-02-10] MEDS: Ipratropium/Albuterol Neb 3 ML IH SCH ×4 (03:42→21:02)
[2017-02-10] MEDS: *HR* Dabigatran 150 MG CAPSULE PO SCH ×2 (09:46→21:33)
[2017-02-10] MEDS: Cyanocobalamin (B-12) 1,000 MCG TABLET PO SCH (09:46)
[2017-02-10] MEDS: Diltiazem CD (24hr) 180 MG CAPSULE PO SCH (09:46)
--- NOTE | 2017-02-10 17:35 | Internal Med Progress Note ---
<Oli Mcintyre - Last Filed: 02/10/17 17:32> Date of Encounter: 02/10/17 Time of Encounter: 10:00 - Assessment and plan (1) Multiple fractures of ribs, left side, initial encounter for closed fracture Current Visit: Yes Status: Acute Assessment and plan: - PT working with PT and OT for Fall. Patient reports pain is improved. Continue current management. Patient for discharge to [facility] on Monday. Has been accepted. Qualifiers: Encounter type: initial encounter Qualified Code(s): S22.42XA - Multiple fractures of ribs, left side, initial encounter for closed fracture (2) UTI due to extended-spectrum beta lactamase (ESBL) producing Escherichia coli Current Visit: Yes Status: Acute Assessment and plan: - Txt course finished. (3) Hypertension Current Visit: Yes Status: Chronic Assessment and plan: -Well Controlled -Continue current regimen Qualifiers: Hypertension type: essential hypertension Qualified Code(s): I10 - Essential (primary) hypertension (4) COPD (chronic obstructive pulmonary disease) Current Visit: Yes Status: Chronic Assessment and plan: -Guaifenesin discontinued, continue nebs. Patient is doing incentive spirometry for rib fractures. Qualifiers: COPD type: chronic bronchitis Chronic bronchitis type: simple Qualified Code(s): J41.0 - Simple chronic bronchitis (5) Atrial fibrillation Current Visit: Yes Status: Chronic Assessment and plan: -Chronic, stable. Continue Cardizem for rate controlled. continue Pradaxa for anticoagulation Qualifiers: Atrial fibrillation type: chronic Qualified Code(s): I48.2 - Chronic atrial fibrillation (6) Anemia Current Visit: Yes Status: Chronic Assessment and plan: chronic anemia-stable likely iron deficiency. Qualifiers: Anemia type: unspecified type Qualified Code(s): D64.9 - Anemia, unspecified (7) History of CVA (cerebrovascular accident) Current Visit: Yes Status: Acute Assessment and plan: continue pradaxa and atorvastatin. (8) CAD (coronary artery disease) Current Visit: Yes Status: Chronic Assessment and plan: -Chronic, stable, continue meds Qualifiers: Coronary Disease-Associated Artery/Lesion type: [place] artery [place] vs. transplanted heart: [place] heart Associated angina: without angina Qualified Code(s): I25.10 - Atherosclerotic heart disease of [place] coronary artery without angina pectoris (9) Sleep apnea in adult Current Visit: Yes Status: Chronic Assessment and plan: -continue CPAP at night - Subjective Interval history: Patient denies current medical complaints. Patient will be discharged on Monday to [facility]. - Constitutional Vitals: Temp Pulse Resp BP Pulse Ox 97.9 F 68 14 98/61 97 02/10/17 15:29 02/10/17 15:29 02/10/17 16:38 02/10/17 15:29 02/10/17 16:38 General appearance: Present: cooperative, A&O X 3, pleasant, no acute distress, answers questions appropriately - Eye Eye exam: Present: sclera anicteric - ENT ENT exam: Present: mucous membranes moist - Respiratory Respiratory exam: Present: CTAB - Cardiovascular Cardiovascular exam: Present: RRR, +S1, +S2 - GI/Abdominal GI/Abdominal exam: Present: normal bowel sounds, soft. Absent: tenderness - Extremities Exam Extremities exam: Absent: pedal edema - Neurological Exam Neurological exam: Present: alert. Absent: speech deficit - Psychiatric Psychiatric exam: Present: normal affect, normal mood - Skin Skin exam: Present: dry, warm Internal Medicine: Result - Labs CBC & Chem 7: 02/03/17 04:05 01/28/17 16:44 - ABG Interpretation ABG results: PT/INR, D-dimer PT 16.8 Seconds (9.4-12.1) H 01/23/17 09:13 - VTE Reasons for not Prescribing Prophylaxis: Not indicated-Anticoagulated or INR therapeutic Documentation of Mechanical Device: Intermittent pneumatic compression device Consult Discharge Plan - Plan Referrals: Luz Camacho MD [Primary Care Provider] - Prescriptions: Lidocaine Patch [Lidoderm 5% patch] 1 each TP DAILY #30 <Juan Javed - Last Filed: 02/10/17 18:02> Date of Encounter: 02/10/17 - Constitutional Vitals: Temp Pulse Resp BP Pulse Ox 97.9 F 68 14 98/61 97 02/10/17 15:29 02/10/17 15:29 02/10/17 16:38 02/10/17 15:29 02/10/17 16:38 Internal Medicine: Result - Labs CBC & Chem 7: 02/03/17 04:05 01/28/17 16:44 - ABG Interpretation ABG results: PT/INR, D-dimer PT 16.8 Seconds (9.4-12.1) H 01/23/17 09:13 - Attending Attestation I examined this patient and my medical decision-making was reviewed with the Resident Physician. I agree with the documented findings, disposition and treatment plan as described except to the extent set forth below.
[2017-02-11] MEDS: Ipratropium/Albuterol Neb 3 ML IH SCH ×4 (04:16→22:17)
--- NOTE | 2017-02-11 07:25 | Internal Med Progress Note ---
Date of Encounter: 02/11/17 Time of Encounter: 07:15 - Assessment and plan (1) Multiple fractures of ribs, left side, initial encounter for closed fracture Current Visit: Yes Status: Acute Assessment and plan: Pt states that pain has improved. Continue incentived spirometry. continue PT/ OT. Qualifiers: Encounter type: initial encounter Qualified Code(s): S22.42XA - Multiple fractures of ribs, left side, initial encounter for closed fracture (2) Obesity (BMI 30.0-34.9) Current Visit: No Status: Chronic Assessment and plan: Chronic. Lifestyle and diet modifications (3) Hypertension Current Visit: Yes Status: Chronic Assessment and plan: Well controlled. Continue current medication regimen. Qualifiers: Hypertension type: essential hypertension Qualified Code(s): I10 - Essential (primary) hypertension (4) Dyslipidemia Current Visit: No Status: Chronic (5) COPD (chronic obstructive pulmonary disease) Current Visit: Yes Status: Chronic Qualifiers: COPD type: chronic bronchitis Chronic bronchitis type: simple Qualified Code(s): J41.0 - Simple chronic bronchitis (6) Atrial fibrillation Current Visit: Yes Status: Chronic Assessment and plan: Rate controlled with Cardizem, continue Pradaxa. Qualifiers: Atrial fibrillation type: chronic Qualified Code(s): I48.2 - Chronic atrial fibrillation (7) Anticoagulant long-term use Current Visit: Yes Status: Chronic Assessment and plan: Anticoagulation for a-fib. Continue Pradaxa. (8) UTI (urinary tract infection) Current Visit: No Status: Acute Assessment and plan: ESBL. Treatment finished. Qualifiers: Urinary tract infection type: acute cystitis Hematuria presence: without hematuria Qualified Code(s): N30.00 - Acute cystitis without hematuria (9) Sleep apnea in adult Current Visit: Yes Status: Chronic Assessment and plan: Continue CPAP. (10) CAD (coronary artery disease) Current Visit: Yes Status: Chronic Assessment and plan: Continue current medications. Pt denies chest pain. Qualifiers: Coronary Disease-Associated Artery/Lesion type: [place] artery [place] vs. transplanted heart: [place] heart Associated angina: without angina Qualified Code(s): I25.10 - Atherosclerotic heart disease of [place] coronary artery without angina pectoris (11) Anemia Current Visit: Yes Status: Chronic Assessment and plan: Chronic. Hgb 12.0. Likely [place]. Qualifiers: Anemia type: unspecified type Qualified Code(s): D64.9 - Anemia, unspecified (12) History of CVA (cerebrovascular accident) Current Visit: Yes Status: Acute Assessment and plan: History. Continue statin and Pradaxa. (13) DVT prophylaxis Current Visit: Yes Status: Acute - Time Spent With Patient less than 15 minutes - Subjective Interval history: Pt seen and assessed at 0715. Pt sleeping, arouses easily. Pt states that he is feeling better and has been able to stand at his bedside with PT. States that rib fracture pain is improved. Appeared to be unaware that he is going to be discharged on Monday to go to SNF. Denies n/v/d, headache, chest pain, cough, or any urinary symptoms. - Constitutional Vitals: Temp Pulse Resp BP Pulse Ox 98.3 F 62 14 110/65 94 02/10/17 20:14 02/10/17 20:14 02/11/17 04:16 02/10/17 20:14 02/11/17 04:16 General appearance: Present: cooperative, A&O X 3, pleasant, no acute distress, answers questions appropriately - Head Head exam: Present: normal inspection - Eye Eye exam: Present: normal appearance, conjuntiva pink - ENT ENT exam: Present: mucous membranes moist, normal exam, normal external ear exam - Neck Neck exam general surgery: Present: normal inspection. Absent: lymphadenopathy , tenderness - Respiratory Respiratory exam: Present: decreased breath sounds, CTAB, rhonchi. Absent: rales, respiratory distress, stridor, wheezes, tachypnea - Cardiovascular Cardiovascular exam: Present: RRR, +S1, +S2. Absent: diastolic murmur, systolic murmur - GI/Abdominal GI/Abdominal exam: Present: distended, normal bowel sounds, soft. Absent: hepatomegaly, tenderness - Extremities Exam Extremities exam: Present: normal capillary refill, warm, radial pulses palpable and symetrical. Absent: tenderness - Neurological Exam Neurological exam: Present: alert, oriented X3. Absent: facial droop, speech deficit - Skin Skin exam: Present: dry, intact, warm Internal Medicine: Result - Labs CBC & Chem 7: 02/03/17 04:05 01/28/17 16:44 - ABG Interpretation ABG results: PT/INR, D-dimer PT 16.8 Seconds (9.4-12.1) H 01/23/17 09:13 - VTE Reasons for not Prescribing Prophylaxis: Not indicated-Anticoagulated or INR therapeutic Documentation of Mechanical Device: Intermittent pneumatic compression device Consult Discharge Plan - Plan Referrals: Luz Camacho MD [Primary Care Provider] - Prescriptions: Lidocaine Patch [Lidoderm 5% patch] 1 each TP DAILY #30
[2017-02-11] MEDS: *HR* Dabigatran 150 MG CAPSULE PO SCH ×2 (09:41→20:14)
[2017-02-11] MEDS: Cyanocobalamin (B-12) 1,000 MCG TABLET PO SCH (09:41)
[2017-02-11] MEDS: Diltiazem CD (24hr) 180 MG CAPSULE PO SCH (09:41)
[2017-02-12] MEDS: Ipratropium/Albuterol Neb 3 ML IH SCH ×4 (03:42→22:31)
--- NOTE | 2017-02-12 08:30 | Internal Med Progress Note ---
Date of Encounter: 02/12/17 Time of Encounter: 08:10 - Assessment and plan (1) Multiple fractures of ribs, left side, initial encounter for closed fracture Current Visit: Yes Status: Acute Assessment and plan: Pt states that pain is better. No bruising, slight tenderness to palpation. Continue incentived spirometry. continue PT/OT. Qualifiers: Encounter type: initial encounter Qualified Code(s): S22.42XA - Multiple fractures of ribs, left side, initial encounter for closed fracture (2) Obesity (BMI 30.0-34.9) Current Visit: No Status: Chronic Assessment and plan: Chronic. Lifestyle and diet modifications (3) Hypertension Current Visit: Yes Status: Chronic Assessment and plan: Well controlled. Continue current medication regimen. Qualifiers: Hypertension type: essential hypertension Qualified Code(s): I10 - Essential (primary) hypertension (4) Dyslipidemia Current Visit: No Status: Chronic Assessment and plan: Chronic. Continue home medications. (5) COPD (chronic obstructive pulmonary disease) Current Visit: Yes Status: Chronic Assessment and plan: Continue nebs. Patient is doing incentive spirometry for rib fractures. Qualifiers: COPD type: chronic bronchitis Chronic bronchitis type: simple Qualified Code(s): J41.0 - Simple chronic bronchitis (6) Atrial fibrillation Current Visit: Yes Status: Chronic Assessment and plan: Rate controlled with Cardizem, continue Pradaxa. Qualifiers: Atrial fibrillation type: chronic Qualified Code(s): I48.2 - Chronic atrial fibrillation (7) Anticoagulant long-term use Current Visit: Yes Status: Chronic Assessment and plan: Anticoagulation for a-fib. Continue Pradaxa. (8) UTI (urinary tract infection) Current Visit: No Status: Acute Assessment and plan: ESBL. Treatment finished. Pt remains in isolation. Qualifiers: Urinary tract infection type: acute cystitis Hematuria presence: without hematuria Qualified Code(s): N30.00 - Acute cystitis without hematuria (9) Sleep apnea in adult Current Visit: Yes Status: Chronic Assessment and plan: Continue CPAP at night. (10) CAD (coronary artery disease) Current Visit: Yes Status: Chronic Assessment and plan: Continue current medications, Pradaxa, statin, Cardizem. Pt denies chest pain. Qualifiers: Coronary Disease-Associated Artery/Lesion type: [place] artery [place] vs. transplanted heart: [place] heart Associated angina: without angina Qualified Code(s): I25.10 - Atherosclerotic heart disease of [place] coronary artery without angina pectoris (11) Anemia Current Visit: Yes Status: Chronic Assessment and plan: Chronic. Hgb 12.0. Likely [place]. Qualifiers: Anemia type: unspecified type Qualified Code(s): D64.9 - Anemia, unspecified (12) History of CVA (cerebrovascular accident) Current Visit: Yes Status: Acute Assessment and plan: History. Continue statin and Pradaxa. (13) DVT prophylaxis Current Visit: Yes Status: Acute Assessment and plan: Pradaxa resumed. SCDs - Subjective Interval history: Pt seen and assessed at 0810. Pt sleeping, arouses easily. Pt states that he is feeling good today. States that rib fracture pain is improved. Denies pain overall. Denies n/v/d, headache, chest pain, cough, or any urinary symptoms. Is aware of discharge tomorrow. - Constitutional Vitals: Temp Pulse Resp BP Pulse Ox 97.7 F 74 18 113/75 94 02/12/17 07:05 02/12/17 07:05 02/12/17 07:05 02/12/17 07:05 02/12/17 07:05 General appearance: Present: cooperative, A&O X 3, pleasant, no acute distress, answers questions appropriately - Head Head exam: Present: normal inspection - Eye Eye exam: Present: normal appearance, conjuntiva pink - ENT ENT exam: Present: mucous membranes moist, normal exam, normal external ear exam - Neck Neck exam general surgery: Present: normal inspection. Absent: lymphadenopathy , tenderness - Respiratory Respiratory exam: Present: chest wall tenderness, rhonchi. Absent: decreased breath sounds, rales, respiratory distress, stridor, wheezes Additional comments: ronchi clears with cough - Cardiovascular Cardiovascular exam: Present: RRR, +S1, +S2. Absent: diastolic murmur, systolic murmur - GI/Abdominal GI/Abdominal exam: Present: normal bowel sounds, soft. Absent: hepatomegaly, tenderness - Extremities Exam Extremities exam: Present: warm, radial pulses palpable and symetrical. Absent : pedal edema, tenderness - Neurological Exam Neurological exam: Present: alert, oriented X3, no focal deficits. Absent: facial droop, speech deficit - Skin Skin exam: Present: dry, normal color, warm Internal Medicine: Result - Labs CBC & Chem 7: 02/03/17 04:05 01/28/17 16:44 - ABG Interpretation ABG results: PT/INR, D-dimer PT 16.8 Seconds (9.4-12.1) H 01/23/17 09:13 - VTE Reasons for not Prescribing Prophylaxis: Not indicated-Anticoagulated or INR therapeutic Documentation of Mechanical Device: Intermittent pneumatic compression device Consult Discharge Plan - Plan Referrals: Luz Camacho MD [Primary Care Provider] - Prescriptions: Lidocaine Patch [Lidoderm 5% patch] 1 each TP DAILY #30
[2017-02-12] MEDS: Diltiazem CD (24hr) 180 MG CAPSULE PO SCH (09:20)
[2017-02-12] MEDS: *HR* Dabigatran 150 MG CAPSULE PO SCH ×2 (09:20→21:12)
[2017-02-12] MEDS: Cyanocobalamin (B-12) 1,000 MCG TABLET PO SCH (09:20)
[2017-02-13] MEDS: Ipratropium/Albuterol Neb 3 ML IH SCH ×2 (03:42→10:37)
[2017-02-13] MEDS: Cyanocobalamin (B-12) 1,000 MCG TABLET PO SCH (09:16)
[2017-02-13] MEDS: Diltiazem CD (24hr) 180 MG CAPSULE PO SCH (09:16)
[2017-02-13] MEDS: *HR* Dabigatran 150 MG CAPSULE PO SCH (09:16)
--- NOTE | 2017-02-13 10:25 | Physician Discharge Referral ---
ExtendedCare Referral Info Transfer To: ECF Provider in Charge after Transfer: PCP Institutional Level of Care: Skilled - Transfer Medications Prescriptions: Lidocaine Patch [Lidoderm 5% patch] 1 each TP DAILY #30 Home Medications: Oxybutynin [Ditropan] 5 mg PO 3-4XD 07/01/15 [History] Atorvastatin Calcium [Lipitor] 20 mg PO HS 11/20/15 [History] Tamsulosin [Flomax] 0.4 mg PO DAILY 11/20/15 [History] Docusate [Colace] 100 mg PO BID capsule 12/10/15 [Rx] MOM Conc [MILK OF MAGNESIA conc] 10 ml PO DAILY PRN #0 ud.liq 12/10/15 [Rx] Dabigatran [Pradaxa] 150 mg PO BID 02/20/16 [History] Ferrous Sulfate 325 mg PO DAILY 365 Days 02/22/16 [Rx] Albuterol Sulfate [Proair Hfa] 2 puff IH Q4H PRN 01/23/17 [History] Ascorbate Calcium [Vitamin C] 500 mg PO DAILY 01/23/17 [History] Atorvastatin Calcium [Lipitor] 20 mg PO DAILY 01/23/17 [History] Cyanocobalamin (Vitamin B-12) [Vitamin B12] 1,000 mcg PO DAILY 01/23/17 [History ] Folic Acid 1 mg PO DAILY 01/23/17 [History] HYDROcodone/Acet 5/325 mg [[place] 5-325 mg] 1 tab PO Q6H PRN 01/23/17 [History] Lisinopril [Zestril] 10 mg PO DAILY 01/23/17 [History] Magnesium Hydroxide [Milk of Magnesia] 10 ml PO DAILY PRN 01/23/17 [History] Oxybutynin [Ditropan] 5 mg PO BID 01/23/17 [History] Tamsulosin [Flomax] 0.4 mg PO DAILY 01/23/17 [History] Diltiazem CD (24hr) [Cardizem CD] 180 mg PO DAILY 02/09/17 [Rx] Lidocaine Patch [Lidoderm 5% patch] 1 each TP DAILY #30 02/09/17 [Rx] Allergies/Adverse Reactions: Allergies Penicillins Allergy (Verified 12/24/15 16:23) Hives Sulfa (Sulfonamide Antibiotics) Allergy (Verified 12/24/15 16:23) Hives - Respiratory Orders Other (CPAP QHS) Smoking Cessation: Smoking cessation has been advised. For more information, call the [place] Tobacco Quit Line at 6-975-CNJB-NOW. - Advance Directives Living Will: Yes Power of Hotel Assistant Manager: Yes Code Status: Full Code - Mobility Orders Ambulate (with assistance), Other (Fall precautions) - Rehabiliation Orders Rehab Orders: Evaluation for Physical Therapy, Evaluation for Occupational Therapy - Diet Orders No Added Salt (MARIE), Cardiac CERTIFICATION: I certify that the transfer of the above named patient to an Extended Care Facility is necessary for the continuing treatment of the diagnosis listed. The above information is true and accurate reflection of patient's current condition. Confidential - Redisclosure prohibited without a patient's written consent.
--- NOTE | 2017-02-13 10:30 | Discharge Summary ---
<Oli Mcintyre - Last Filed: 02/13/17 10:27> Date of Encounter: 02/13/17 Time of Encounter: 10:27 - Discharge Diagnosis (1) Multiple fractures of ribs, left side, initial encounter for closed fracture Priority: Primary Status: Acute Qualifiers: Encounter type: initial encounter Qualified Code(s): S22.42XA - Multiple fractures of ribs, left side, initial encounter for closed fracture (2) UTI due to extended-spectrum beta lactamase (ESBL) producing Escherichia coli Priority: Secondary Status: Acute (3) Hypertension Priority: Secondary Status: Chronic Qualifiers: Hypertension type: essential hypertension Qualified Code(s): I10 - Essential (primary) hypertension (4) COPD (chronic obstructive pulmonary disease) Priority: Secondary Status: Chronic Qualifiers: COPD type: chronic bronchitis Chronic bronchitis type: simple Qualified Code(s): J41.0 - Simple chronic bronchitis (5) Atrial fibrillation Priority: Secondary Status: Chronic Qualifiers: Atrial fibrillation type: chronic Qualified Code(s): I48.2 - Chronic atrial fibrillation (6) Anemia Priority: Secondary Status: Chronic Qualifiers: Anemia type: unspecified type Qualified Code(s): D64.9 - Anemia, unspecified (7) History of CVA (cerebrovascular accident) Priority: Secondary Status: Acute (8) CAD (coronary artery disease) Priority: Secondary Status: Chronic Qualifiers: Coronary Disease-Associated Artery/Lesion type: [place] artery [place] vs. transplanted heart: [place] heart Associated angina: without angina Qualified Code(s): I25.10 - Atherosclerotic heart disease of [place] coronary artery without angina pectoris (9) Sleep apnea in adult Priority: Secondary Status: Chronic - Discharge Medications Prescriptions: Lidocaine Patch [Lidoderm 5% patch] 1 each TP DAILY #30 Home Medications: Oxybutynin [Ditropan] 5 mg PO 3-4XD 07/01/15 [History] Atorvastatin Calcium [Lipitor] 20 mg PO HS 11/20/15 [History] Tamsulosin [Flomax] 0.4 mg PO DAILY 11/20/15 [History] Docusate [Colace] 100 mg PO BID capsule 12/10/15 [Rx] MOM Conc [MILK OF MAGNESIA conc] 10 ml PO DAILY PRN #0 ud.liq 12/10/15 [Rx] Dabigatran [Pradaxa] 150 mg PO BID 02/20/16 [History] Ferrous Sulfate 325 mg PO DAILY 365 Days 02/22/16 [Rx] Albuterol Sulfate [Proair Hfa] 2 puff IH Q4H PRN 01/23/17 [History] Ascorbate Calcium [Vitamin C] 500 mg PO DAILY 01/23/17 [History] Atorvastatin Calcium [Lipitor] 20 mg PO DAILY 01/23/17 [History] Cyanocobalamin (Vitamin B-12) [Vitamin B12] 1,000 mcg PO DAILY 01/23/17 [History ] Folic Acid 1 mg PO DAILY 01/23/17 [History] HYDROcodone/Acet 5/325 mg [[place] 5-325 mg] 1 tab PO Q6H PRN 01/23/17 [History] Lisinopril [Zestril] 10 mg PO DAILY 01/23/17 [History] Magnesium Hydroxide [Milk of Magnesia] 10 ml PO DAILY PRN 01/23/17 [History] Oxybutynin [Ditropan] 5 mg PO BID 01/23/17 [History] Tamsulosin [Flomax] 0.4 mg PO DAILY 01/23/17 [History] Diltiazem CD (24hr) [Cardizem CD] 180 mg PO DAILY 02/09/17 [Rx] Lidocaine Patch [Lidoderm 5% patch] 1 each TP DAILY #30 02/09/17 [Rx] Allergies/Adverse Reactions: Allergies Penicillins Allergy (Verified 12/24/15 16:23) Hives Sulfa (Sulfonamide Antibiotics) Allergy (Verified 12/24/15 16:23) Hives Procedures/tests Complete & Pending: Chest CT: "IMPRESSION: 1. Acute nondisplaced left anterolateral 5th through 8th rib fractures with no significant chest wall hematoma. 2. Mild adjacent lingular subpleural subsegmental opacity which may represent atelectasis or possible mild contusion. No pneumothorax or effusion. 3. Cardiomegaly and aortic/coronary atherosclerosis. 4. Indeterminate borderline enlarged solitary left axillary lymph node." Abd CT: "IMPRESSION: 1. No evidence of intra-abdominal or pelvic bleeding or major organ injury. 2. Mild ileus. 3. Cholelithiasis but no evidence of acute cholecystitis. 4. Bilateral fat containing inguinal hernias." Cspine CT: "IMPRESSION: No acute abnormality of the cervical spine. 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 " CT head: "IMPRESSION: 1. No acute intracranial abnormality. 2. Cerebral and cerebellar parenchymal volume loss with frontal lobe predominance. This could be related to a frontal lobe dementia. 3. 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 Please follow up with your drug purchaser and neurologist as soon as possible after leaving the group home. Please take all your medications as prescribed by us. Please return to the hospital if you experience new or worsening symptoms. - Diet and Activity Activity: as per physical therapy Diet: other (cardiac Diet, Supplemented with ensure. ) Interval History: Patient has no current medical complaints. Patient is ready to be transferred to ECF. Hospital course: Mr. Hawkins is a 81 year old male c PMHx of COPD, HTN, a fib, prior CVA, wheelchair bound on pradaxa. He was transferring from his electric scooter to his wheelchair and fell on his left side. Pt came in to the hospital c/o L side rib pain and pain with respiration. He was noted to have had one episode of "coffee ground emesis" per EMS. CT of the chest identified multiple rib fractures. a work up for his "Coffee ground emesis" incluidng CT abd, and was negative and patient had no further episodes in the hospital. Patient was hemodynamically stable, guaic negative, and stable hgb, through out but was started on iron supplements for chronic iron deficiency anemia. APtient was foudn to have a UTI which grew ESBL. He was treated with a 10 day course of ertapenem. Patient has worked with PT/OT in hospital and was deemed safe for transfer to ECF. - Time Spent with Patient Total time spent providing and/or coordinating discharge services: - Constitutional Vitals: Temp Pulse Resp BP Pulse Ox 98.2 F 84 16 124/88 92 02/13/17 07:16 02/13/17 07:16 02/13/17 07:16 02/13/17 07:16 02/13/17 07:16 General appearance: Present: cooperative, A&O X 3, pleasant, no acute distress, answers questions appropriately - ENT ENT exam: Present: mucous membranes moist - Respiratory Respiratory exam: Present: CTAB - Cardiovascular Cardiovascular exam: Present: irregular rhythm, +S1, +S2 - GI/Abdominal GI/Abdominal exam: Present: normal bowel sounds, soft. Absent: tenderness - Extremities Exam Extremities exam: Absent: pedal edema, tenderness - Neurological Exam Neurological exam: Present: alert. Absent: speech deficit - Psychiatric Psychiatric exam: Present: normal affect, normal mood - Skin Skin exam: Present: dry, warm - VTE Reasons for not Prescribing Prophylaxis: Not indicated-Anticoagulated or INR therapeutic Documentation of Mechanical Device: Intermittent pneumatic compression device <Jayden Banks - Last Filed: 02/13/17 18:14> Date of Encounter: 02/13/17 Date of admission: 01/26/17 18:20 Primary care physician: Luz Camacho, [facility] course: Mr. Hawkins is a 81 year old male - Time Spent with Patient Total time spent providing and/or coordinating discharge services: - Constitutional Vitals: Temp Pulse Resp BP Pulse Ox 97.9 F 77 16 115/83 95 02/13/17 10:35 02/13/17 10:35 02/13/17 10:37 02/13/17 10:35 02/13/17 10:37 - Attending Attestation I examined this patient and my medical decision-making was reviewed with the Resident Physician, Dr. Mcintyre. I agree with the documented findings, disposition and treatment plan as described except to the extent set forth below. I have independently obtained history and examined the patient and my findings are summarized below: Patient is awake alert oriented 3. Heart is regular. Lungs are clear. Abdomen soft. Plan: Discharge to [facility] facility.
[2017-02-13 10:36] VITALS: BP 115/83
== END 2017-02-13 11:39 | DRG 184 ==
LOC: 3BNU 08:37 → EMEROO 08:37 → MERGE 13:38 → 3BNU 14:08 → SUATTDRO 01-26 18:20
PROVIDERS: ADMIT Internal Medicine; ATTEND Internal Medicine